=== PATIENT | male | born 1955 | race Caucasian/White ===

== ENCOUNTER → 2020-10-29 08:54 | Outpatient (BNVA) | payer BC, SELFPAY | PROVIDERS: PCP Physician Assistant; Visit Provider Nurse Practitioner Gerontology | DX: E11.42 Type 2 diabetes mellitus with diabetic polyneuropathy (principal); E78.00 Pure hypercholesterolemia, unspecified; I10 Essential (primary) hypertension; R09.89 Other specified symptoms and signs involving the circulatory and respiratory systems; E66.09 Other obesity due to excess calories; Z68.34 Body mass index [BMI] 34.0-34.9, adult; Z79.4 Long term (current) use of insulin | CPT/HCPCS: 82947 ==

== ENCOUNTER → 2020-11-20 14:57 | Outpatient (BNVA) | payer BC, SELFPAY | PROVIDERS: PCP Physician Assistant; Visit Provider Surgery Vascular Surgery ==

== ENCOUNTER → 2020-12-12 07:24 | Outpatient (BNVA) | payer BC, SELFPAY | PROVIDERS: PCP Physician Assistant; Visit Provider Nurse Practitioner Gerontology | DX: E78.00 Pure hypercholesterolemia, unspecified (principal); I10 Essential (primary) hypertension; E66.09 Other obesity due to excess calories; Z68.34 Body mass index [BMI] 34.0-34.9, adult; Z79.4 Long term (current) use of insulin | CPT/HCPCS: 82947 ==

== ENCOUNTER → 2020-12-26 07:30 | Outpatient (BNVA) | payer BC, SELFPAY | PROVIDERS: PCP Physician Assistant; Visit Provider Nurse Practitioner Gerontology | DX: E11.42 Type 2 diabetes mellitus with diabetic polyneuropathy (principal); E78.00 Pure hypercholesterolemia, unspecified; E66.09 Other obesity due to excess calories; I10 Essential (primary) hypertension; Z79.4 Long term (current) use of insulin; Z68.34 Body mass index [BMI] 34.0-34.9, adult | CPT/HCPCS: 82947 ==

== ENCOUNTER 2021-01-02 08:20 | Outpatient (REF) | payer MEDICARE, SELFPAY ==
--- NOTE | ~2021-01-02 | US_ITS ---
EXAMINATION: US NONINVASIVE ASSESSMENT OF THE ARTERIES OF BOTH LOWER EXTREMITIES WITH ANKLE PRESSURE MEASUREMENTS, ANKLE BRACHIAL INDICES, PVR MEASUREMENTS AND BILATERAL LOWER EXTREMITY DUPLEX CLINICAL INFORMATION: Peripheral vascular disease. TECHNIQUE: Ankle pressure measurements, ankle brachial indices and PVR tracings were obtained of the lower extremity arterial system bilaterally. In addition, duplex Doppler techniques with wave form analysis and measurement of velocities in the common femoral, profunda femoral, superficial femoral, popliteal and tibial arteries was performed. The study was performed only at rest. COMPARISON: None FINDINGS: NONINVASIVE ASSESSMENT OF THE ARTERIES OF BOTH LOWER EXTREMITIES WITH ABIs: RIGHT LEG: Right ankle-brachial index: 1.08 PVR (ankle): Normal. LEFT LEG: Ankle-brachial index: 1.15 PVR (ankle): Normal. BILATERAL LOWER EXTREMITY DUPLEX ULTRASOUND: RIGHT LEG: Common femoral artery: 92 cm/s, Diastolic flow reversal: Yes Profunda femoris artery: 54 cm/s, Diastolic flow reversal: Yes Superficial femoral artery (proximal): 86 cm/s, Diastolic flow reversal: Yes Superficial femoral artery (mid): 90 cm/s, Diastolic flow reversal: Yes Superficial femoral artery (distal): 80 cm/s, Diastolic flow reversal: Yes Popliteal artery: 49 cm/s, Diastolic flow reversal: Yes Posterior tibial artery: 58 cm/s, Diastolic flow reversal: Yes LEFT LEG: Common femoral artery: 99 cm/s, Diastolic flow reversal: Yes Profunda femoris artery: 62 cm/s, Diastolic flow reversal: Yes Superficial femoral artery (proximal): 101 cm/s, Diastolic flow reversal: Yes Superficial femoral artery (mid): 94 cm/s, Diastolic flow reversal: Yes Superficial femoral artery (distal): 79 cm/s, Diastolic flow reversal: Yes Popliteal artery: 66 cm/s, Diastolic flow reversal: Yes Posterior tibial artery: 63 cm/s, Diastolic flow reversal: Yes US/US arterial duplex LE BI IMPRESSION: RIGHT LEG: No evidence of arterial insufficiency by ASAD or duplex criteria. LEFT LEG: No evidence of arterial insufficiency by ASAD or duplex criteria. ASAD Reference: - >0.97-1.25 = normal - no significant arterial disease - 0.75-0.96 = mild peripheral arterial disease - 0.5-0.74 = moderate peripheral arterial disease - <0.50 = severe peripheral arterial disease
== END 2021-01-02 08:21 | disposition home or self-care (01) ==
LOC: HO.US 08:20
PROVIDERS: Visit Provider Surgery Vascular Surgery
DX: I70.213 Atherosclerosis of native arteries of extremities with intermittent claudication, bilateral legs (principal)
CPT/HCPCS: 93923; 93925

== ENCOUNTER → 2021-01-10 08:49 | Outpatient (BNVA) | payer MEDICARE, SELFPAY | PROVIDERS: PCP Physician Assistant; Visit Provider Surgery Vascular Surgery | DX: I73.9 Peripheral vascular disease, unspecified (principal) | CPT/HCPCS: 99212 ==

== ENCOUNTER 2021-02-12 08:32 | Outpatient (REF) | payer MEDICARE, SELFPAY ==
[2021-02-12 11:29] LABS: Hematocrit 50.2 % (42-52); Hemoglobin 16.4 g/dl (14.0-18.0); Mean Corpuscular HGB Conc 32.7 g/dl (31.0-36.0); Mean Corpuscular Volume 88.7 fL (80-98); Mean Platelet Volume 11.8 fL (9.4-12.4); Platelet Count 170 X10*3/uL (160-400); Red Blood Count 5.66 X10*6/uL (4.60-5.80); Red Cell Distribution Width 13.8 % (11.0-16.0)
[2021-02-12 11:35] LABS: Estimated Average Glucose 148 mg/dL; Hemoglobin A1c % 6.8 %
[2021-02-12 11:38] LABS: Alanine Aminotransferase 24 U/L (0-40); Albumin Level 4.4 g/dL (3.5-5.0); Alkaline Phosphatase 62 U/L (39-117); Anion Gap 12 (12-20); Aspartate Amino Transferase 28 U/L (5-37); Bilirubin Total 0.5 mg/dL (0.0-1.0); Blood Urea Nitrogen 17 mg/dL (9-16); Calcium 9.3 mg/dL (8.4-10.2); Carbon Dioxide 27 mmol/L (22-29); Chloride 108 mmol/L (96-108); Estimated Glomerular Filt Rate > 60; Glucose Fasting 130 mg/dL (60-99); HDL Cholesterol 33 mg/dL; Potassium 4.3 mmol/L (3.3-5.1); Sodium 143 mmol/L (135-145); Total Protein 7.2 g/dL (6.5-8.0); Triglycerides 137 mg/dL
[2021-02-12 12:00] LABS: Cholesterol 99 mg/dL; LDL Cholesterol Calculated 39 mg/dl
[2021-02-12 12:09] LABS: Creatinine Urine 112.63 mg/dL; Microalbum/Creatinine Ratio Ur 4.4 ug/mg cr
[2021-02-13 20:21] LABS: LDL Cholesterol Direct 41 mg/dL (<100)
== END 2021-02-12 08:33 | disposition home or self-care (01) ==
LOC: HO.HMGCLDS 08:32
PROVIDERS: PCP Physician Assistant; Referring Provider Nurse Practitioner Gerontology; Visit Provider Nurse Practitioner Family
DX: E11.42 Type 2 diabetes mellitus with diabetic polyneuropathy (principal); Z79.4 Long term (current) use of insulin
CPT/HCPCS: 36415; 80053; 80061; 82043; 83036; 83721; 85027

== ENCOUNTER 2021-09-19 08:00 | Outpatient (REF) | payer MEDICARE, SELFPAY ==
[2021-09-19 11:13] LABS: Hematocrit 49.7 % (42.0-52.0); Hemoglobin 16.2 g/dl (14.0-18.0); Mean Corpuscular HGB Conc 32.6 g/dl (31.0-36.0); Mean Corpuscular Hemoglobin 29.3 pg (27.0-33.0); Mean Platelet Volume 11.9 fL (9.4-12.4); Platelet Count 165 X10*3/uL (160-400); Red Blood Count 5.52 X10*6/uL (4.60-5.80); Red Cell Distribution Width 14.6 % (11.0-16.0); White Blood Count 6.3 X10*3/uL (4.8-10.8)
[2021-09-19 11:37] LABS: Alanine Aminotransferase 30 U/L (0-40); Albumin Level 4.2 g/dL (3.5-5.0); Alkaline Phosphatase 68 U/L (39-117); Anion Gap 8 (12-20); Aspartate Amino Transferase 36 U/L (5-37); Bilirubin Total 0.6 mg/dL (0.0-1.0); Blood Urea Nitrogen 12 mg/dL (9-16); Calcium 9.5 mg/dL (8.4-10.2); Carbon Dioxide 31 mmol/L (22-29); Chloride 109 mmol/L (96-108); Cholesterol 95 mg/dL; Estimated Glomerular Filt Rate > 60; Glucose Fasting 92 mg/dL (60-99); HDL Cholesterol 40 mg/dL; LDL Cholesterol Calculated 44 mg/dl; Potassium 4.4 mmol/L (3.3-5.1); Sodium 144 mmol/L (135-145); Triglycerides 59 mg/dL
[2021-09-19 12:00] LABS: Prostate Specific Antigen Scr 0.49 ng/mL (<0.05-4.0)
[2021-09-19 12:37] LABS: Free T4 (Free Thyroxine) 0.65 ng/dL (0.71-1.85)
== END 2021-09-19 08:01 | disposition home or self-care (01) ==
LOC: HO.HMGCLDS 08:00
PROVIDERS: PCP Physician Assistant; Visit Provider Nurse Practitioner Gerontology
DX: I10 Essential (primary) hypertension (principal); E11.42 Type 2 diabetes mellitus with diabetic polyneuropathy; Z79.4 Long term (current) use of insulin; Z12.5 Encounter for screening for malignant neoplasm of prostate
CPT/HCPCS: 36415; 80053; 80061; 84153; 84439; 84443; 85027

== ENCOUNTER 2022-03-12 07:58 | Outpatient (REF) | payer MEDICARE, SELFPAY ==
[2022-03-12 11:28] LABS: Hematocrit 52.9 % (42.0-52.0); Hemoglobin 17.6 g/dl (14.0-18.0); Mean Corpuscular HGB Conc 33.3 g/dl (31.0-36.0); Mean Corpuscular Hemoglobin 29.2 pg (27.0-33.0); Mean Corpuscular Volume 87.7 fL (80.0-98.0); Mean Platelet Volume 11.9 fL (9.4-12.4); Platelet Count 170 X10*3/uL (160-400); Red Blood Count 6.03 X10*6/uL (4.60-5.80); Red Cell Distribution Width 13.7 % (11.0-16.0); White Blood Count 7.7 X10*3/uL (4.8-10.8)
[2022-03-12 12:17] LABS: TSH reflex Free T4 0.37 uIU/mL (0.32-4.0)
[2022-03-12 12:26] LABS: Alanine Aminotransferase 37 U/L (0-40); Albumin Level 4.2 g/dL (3.5-5.0); Alkaline Phosphatase 71 U/L (39-117); Anion Gap 15 (12-20); Aspartate Amino Transferase 37 U/L (5-37); Bilirubin Total 0.7 mg/dL (0.0-1.0); Blood Urea Nitrogen 18 mg/dL (9-16); Calcium 9.2 mg/dL (8.4-10.2); Carbon Dioxide 27 mmol/L (22-29); Chloride 103 mmol/L (96-108); Cholesterol 105 mg/dL; Estimated Glomerular Filt Rate > 60; Glucose Fasting 136 mg/dL (60-99); HDL Cholesterol 40 mg/dL; LDL Cholesterol Calculated 33 mg/dl; Potassium 4.7 mmol/L (3.3-5.1); Sodium 140 mmol/L (135-145); Total Protein 7.3 g/dL (6.5-8.0); Triglycerides 160 mg/dL
== END 2022-03-12 07:59 | disposition home or self-care (01) ==
LOC: HO.HMGCLDS 07:58
PROVIDERS: PCP Physician Assistant; Visit Provider Physician Assistant
DX: E78.00 Pure hypercholesterolemia, unspecified (principal); R79.89 Other specified abnormal findings of blood chemistry; E11.65 Type 2 diabetes mellitus with hyperglycemia; E11.42 Type 2 diabetes mellitus with diabetic polyneuropathy; Z79.4 Long term (current) use of insulin
CPT/HCPCS: 36415; 80048; 80053; 80061; 84443; 85027

== ENCOUNTER 2022-10-21 08:04 | Outpatient (REF) | payer MEDICARE, SELFPAY ==
--- NOTE | ~2022-10-21 | XR_ITS ---
EXAMINATION: XR foot RT min 3V, XR foot LT min 3V CLINICAL INFORMATION: Reason for Exam M79.671 - Pain in right foot COMPARISON: None. TECHNIQUE: AP, lateral, and oblique views of the bilateral feet XR/XR foot RT min 3V FINDINGS/IMPRESSION: * No acute fracture or dislocation. * Calcaneal enthesopathy bilaterally. Degenerative changes of the right greater than left first MTP joint. * No soft tissue abnormality.
--- NOTE | ~2022-10-21 | XR_ITS ---
EXAMINATION: XR foot RT min 3V, XR foot LT min 3V CLINICAL INFORMATION: Reason for Exam M79.671 - Pain in right foot COMPARISON: None. TECHNIQUE: AP, lateral, and oblique views of the bilateral feet XR/XR foot LT min 3V FINDINGS/IMPRESSION: * No acute fracture or dislocation. * Calcaneal enthesopathy bilaterally. Degenerative changes of the right greater than left first MTP joint. * No soft tissue abnormality.
[2022-10-21 12:02] LABS: Hematocrit 52.4 % (42.0-52.0); Hemoglobin 17.1 g/dl (14.0-18.0); Mean Corpuscular HGB Conc 32.6 g/dl (31.0-36.0); Mean Corpuscular Hemoglobin 29.3 pg (27.0-33.0); Mean Corpuscular Volume 89.9 fL (80.0-98.0); Mean Platelet Volume 11.5 fL (9.4-12.4); Platelet Count 175 X10*3/uL (160-400); Red Blood Count 5.83 X10*6/uL (4.60-5.80); Red Cell Distribution Width 14.6 % (11.0-16.0); White Blood Count 9.3 X10*3/uL (4.8-10.8)
[2022-10-21 12:50] LABS: Alanine Aminotransferase 32 U/L (0-40); Alkaline Phosphatase 70 U/L (39-117); Anion Gap 15 (12-20); Aspartate Amino Transferase 26 U/L (5-37); Bilirubin Total 0.8 mg/dL (0.0-1.0); Blood Urea Nitrogen 14 mg/dL (9-16); Carbon Dioxide 29 mmol/L (22-29); Chloride 104 mmol/L (96-108); Cholesterol 111 mg/dL; Estimated Glomerular Filt Rate > 60; Glucose Fasting 79 mg/dL (60-99); HDL Cholesterol 38 mg/dL; LDL Cholesterol Calculated 46 mg/dl; Potassium 4.2 mmol/L (3.3-5.1); Rheumatoid Factor < 13.0 IU/mL (<15.0); Sodium 144 mmol/L (135-145); TSH reflex Free T4 0.38 uIU/mL (0.32-4.0); Total Protein 6.8 g/dL (6.5-8.0); Triglycerides 137 mg/dL
[2022-10-24 15:14] LABS: Anti Nuclear Antibody Screen NEGATIVE (NEGATIVE)
[2022-10-27 16:12] LABS: Testosterone, Total 277 ng/dL (250-1100)
== END 2022-10-21 08:05 | disposition home or self-care (01) ==
LOC: HO.HMGCX 08:04
PROVIDERS: PCP Physician Assistant; Visit Provider Physician Assistant
DX: Z12.5 Encounter for screening for malignant neoplasm of prostate (principal); E11.42 Type 2 diabetes mellitus with diabetic polyneuropathy; M79.671 Pain in right foot; M79.672 Pain in left foot; R53.82 Chronic fatigue, unspecified; Z79.4 Long term (current) use of insulin
CPT/HCPCS: 36415; 73630; 80053; 80061; 84153; 84402; 84403; 84443; 85027; 86038; 86039; 86431

== ENCOUNTER 2023-04-27 08:30 | Outpatient (REF) | payer MEDICARE, SELFPAY ==
[2023-04-27 11:33] LABS: Estimated Average Glucose 128 mg/dL; Hemoglobin A1c % 6.1 % (<6.0)
[2023-04-27 11:51] LABS: Alanine Aminotransferase 26 U/L (0-40); Albumin Level 4.2 g/dL (3.5-5.0); Alkaline Phosphatase 62 U/L (39-117); Anion Gap 16 (12-20); Aspartate Amino Transferase 23 U/L (5-37); Bilirubin Total 0.6 mg/dL (0.0-1.0); Blood Urea Nitrogen 11 mg/dL (9-16); Calcium 9.5 mg/dL (8.4-10.2); Carbon Dioxide 25 mmol/L (22-29); Chloride 106 mmol/L (96-108); Cholesterol 156 mg/dL (<200); Estimated Glomerular Filt Rate > 60; Glucose Fasting 81 mg/dL (60-99); HDL Cholesterol 36 mg/dL (>40); LDL Cholesterol Calculated 91 mg/dL (<100); Potassium 3.2 mmol/L (3.3-5.1); Sodium 144 mmol/L (135-145); TSH reflex Free T4 0.17 uIU/mL (0.32-4.0); Total Protein 7.2 g/dL (6.5-8.0); Triglycerides 148 mg/dL (<150)
[2023-04-27 12:25] LABS: Free T4 (Free Thyroxine) 0.77 ng/dL (0.71-1.85)
== END 2023-04-27 08:31 | disposition home or self-care (01) ==
LOC: HO.HMGCLDS 08:30
PROVIDERS: PCP Physician Assistant; Visit Provider Physician Assistant
DX: Z12.5 Encounter for screening for malignant neoplasm of prostate (principal); R79.89 Other specified abnormal findings of blood chemistry; E78.00 Pure hypercholesterolemia, unspecified; E11.42 Type 2 diabetes mellitus with diabetic polyneuropathy; Z79.4 Long term (current) use of insulin
CPT/HCPCS: 36415; 80053; 80061; 83036; 84153; 84439; 84443

== ENCOUNTER 2023-04-30 09:27 | Outpatient (AMB) | payer MEDICARE, SELFPAY ==
--- NOTE | 2023-04-30 09:29 | A.OFFPC_ITS ---
Vital Signs 04/30/23 09:30 Height 5 ft 11 in Weight 235 lb BMI 32.8 BP 136/80 Blood Pressure Location Lt brachial Position Sitting Respiration 17 Pulse 85 Pulse Source Pulse Oximeter Pulse Oximetry (%) 98 Oxygen Delivery Method Room Air Intake Visit Reasons: 6 month f/u Sand Cutter Required: No Accompanied by: Spouse Allergies Penicillins Allergy (Verified 04/30/23 09:49) hives Medication List - Last Reconciled 04/30/23 by Richie Norton PA-C acetaminophen (Tylenol Extra Strength) 500 mg PO Q6H PRN aripiprazole 2 mg PO DAILY benazepril 20 mg PO DAILY blood pressure test kit-medium As directed blood sugar diagnostic (Inter[employer]uch Verio test strips) To test blood glucose 4 times a day blood-glucose meter (Inter[employer]uch Verio Meter) To test blood glucose 4 times a day blood-glucose meter,continuous ([employer] G6 Purse Seining Hand) As directed blood-glucose sensor (Dexcom G6 Sensor device) As directed blood-glucose transmitter ([employer] G6 Transmitter device) As directed budesonide-formoterol 160-4.5 mcg/actuation 2 puffs PO BID 30 days canagliflozin (Invokana) 300 mg PO DAILY celecoxib (Celebrex) 200 mg PO DAILY 90 days exenatide microspheres ER (Bydureon BCise) 2 mg (0.85 mL) subcut QWEEK 4 weeks ezetimibe 10 mg PO DAILY fluticasone propionate 50 mcg/actuation (Flonase Allergy Relief) 1 spray intranasal Q12H 30 days insulin glargine U-300 conc (Toujeo Max U-300 SoloStar) 74 units (0.2467 mL) subcut BID insulin lispro (Humalog KwikPen (U-100) Insulin) 6 units subcut TID lancets ([employer] Delica Plus Lancet) To test blood glucose 4 times a day nystatin 1 appl topical DAILY 15 days nystatin 1 appl topical DAILY 15 days pantoprazole 40 mg PO DAILY pen needle, diabetic (BD Fela 2nd Gen Pen Needle) 4 times a day pramipexole 0.5 mg PO BEDTIME 90 days prednisone 5 mg PO DAILY 30 days rosuvastatin 5 mg PO DAILY 90 days semaglutide 1 mg (0.75 mL) subcut QWEEK 4 weeks venlafaxine ER 150 mg PO DAILY Tobacco use date assessed: 10/27/22 Fall risk assessment: No Falls in past year Last assessed Fall Risk: 04/30/23 Dental Screening Dental Screen Date: 04/30/23 Did you have a dental visit in the last 12 months?: Yes Did you have a dental problem in the last 6 months where you did not have access to dental care?: No Was dental information given to patient?: No HPI 6 month f/u HPI Details Patient is a 67-year-old male here today for follow-up visit.? He is a? 65-year-old male with a past medical history significant for type 2 diabetes, GERD, anxiety and depression, hyperlipidemia. Concerns--> continues to have left calf cramping worse at night. He is willing to start potassium and magnesium supplementation.. .. DMII: reports Has been taking his blood sugars and report 100s to 130s.? Most recent A1c at 6.1 ?Stopped his follow up with endocrine .? He does report having some lower sugar numbers in the mornings and reduced his Tresiba from 75 to 50 units at night which have normalized sugars. .. Hyperlipidemia:? Continues on statin therapy and total cholesterol and LDL within excellent control. He does report having lower extremity muscle cramps and pain thus will reduce his dose of statin therapy and stop Zetia. Goal LDL will still be below 100 .. Depression:? Has been stable on current doses of mental medications.? Otherwise eyes any SI or HI Labs: Recent noted hypokalemia on labs. Laboratory Tests 10/27/22 04/27/23 04/27/23 09:18 08:40 08:40 Potassium 3.2 L D Creatinine 0.83 Hgb A1c (Clinic) 7.1 H Hemoglobin A1c % 6.1 H Cholesterol 156 LDL Cholesterol, C alc 91 TSH 0.17 L PFSH Medical History (Updated 04/30/23 @ 12:41 by Richie Norton PA-C) Tinea pedis Obesity due to excess calories Poor circulation of extremity Type 2 diabetes mellitus with diabetic polyneuropathy Hypertension High cholesterol Diabetes Surgical History Hx of endoscopy Hx of colonoscopy Hx of hand surgery Hx of vasectomy Family History Mother No problems noted. Father No problems noted. Social History Housing: House Alcohol intake: former Patient Tobacco Use Status: Never used Tobacco e-Cigarette/Vaping Use: Never Used Second Hand Smoke Exposure: No service: No Current occupational status: retired Cognitive needs: No Hearing needs: No Vision needs: Yes Questionnaire Thrive Questionnaire Date Thrive assessed: 10/27/22 DARCY-7 AMB Questionnaire DARCY-7 Date DARCY - 7 assessed: 10/27/22 Source: Developed by Drs. Pedro Akins, Alea Rodriguez, Brett Sanchez and colleagues, with an educational jaelyn from [employer] Physical exam (Primary Care) Vital Signs: Last Vital Signs Pulse 85 04/30/23 09:30 Resp 17 04/30/23 09:30 BP 136/80 04/30/23 09:30 Pulse Ox 98 04/30/23 09:30 Oxygen Delivery Method Room Air 04/30/23 09:30 BMI result Body Mass Index 32.8 Tobacco/Smoking Status: Tobacco use Status Tobacco use date assessed 10/27/22 04/30/23 09:31 Patient Tobacco Use Status Never used Tobacco 04/30/23 09:31 e-Cigarette/Vaping Use Never Used 04/30/23 09:31 Thrive Assessment: Date of Thrive Assessment Date Thrive assessed 10/27/22 04/30/23 09:31 Office Procedures Flu Questionnaire Does the patient have a severe egg allergy?: No Does the patient have severe life threatening allergies?: No Does the patient have a fever or illness today?: No Has the patient ever had Guillain-[place] Syndrome?: No Has the patient ever had any past reaction to a flu shot?: No Immunizations flu vacc [id number] 6mos up(PF) 60 mcg(15 mcgx4)/0.5 mL IM syringe Performing Provider: Richie Norton PA-C [facility] Administered by: KIARA Carmen on 04/30/23 10:01 Dose Route Admin Location Dispensed Lot Number Expiration Date NDC Inorganic Chemical Technician 0.5 mL IM Right Deltoid 0.5 mL [id number] 01/17/24 [id number] [employer] VIS Given Date VIS Provided VIS Publication Date 04/30/23 Single Vaccine 21 Eligibility Eligibility Date Funding Source Not [facility] Eligible 04/30/23 Private Assessment and Plan Assessment & Plan (1) DMII (diabetes mellitus, type 2): Code(s): E11.9 - Type 2 diabetes mellitus without complications Qualifiers: Diabetes mellitus complication status: with hyperglycemia 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 insulin use: with extermination supervisor use Qualified Code(s): E11.65 - Type 2 diabetes mellitus with hyperglycemia; Z79.4 - jail (current) use of insulin Plan: Patient's type 2 diabetes well controlled with A1c is 6.1. Goal A1c to be below 7.0. Will continue his current dose of diabetic medication and will continue working extensively on lifestyle modifications to control his blood sugars. (2) Leg cramps: Code(s): R25.2 - Cramp and spasm Plan: Patient with bilateral lower extremity leg cramps worse at night. Will supply with supplemental magnesium oxide to use hers like cramping. Advised to increase his fluids electrolytes in his diet. Will also reduce the dose of his statin and hold Zetia is there might be side effect of leg cramps with these medications. (3) High cholesterol: Code(s): E78.00 - Pure hypercholesterolemia, unspecified Plan: Patient's lipid panel within excellent control. Will reduce his statin potency as he has been having leg cramps. Goal LDL to be below 100 (4) Osteoarthritis: Code(s): M19.90 - Unspecified osteoarthritis, unspecified site Qualifiers: Laterality: bilateral Osteoarthritis location: knee Osteoarthritis type: primary Qualified Code(s): M17.0 - Bilateral primary osteoarthritis of knee Plan: Patient appears to pretty advanced osteoarthritis. Was on Celebrex in the past though has discontinued this medication. He has started low-dose prednisone and feels that his joint pains are much improved. He is willing to restart nonsteroidal anti-inflammatory for his polyarthritis (5) Hypokalemia: Code(s): E87.6 - Hypokalemia Plan: Noted hypokalemia on most recent labs. Will give potassium supplementation and recheck potassium in 1 week (6) Bipolar disorder: Code(s): F31.9 - Bipolar disorder, unspecified Qualifiers: Active/Remission status: currently active Current bipolar episode type: mixed Current episode severity: mild Qualified Code(s): F31.61 - Bipolar disorder, current episode mixed, mild Plan: Mood has been stable with use of Abilify. Orders: Orders Influenza [id number] Immunization Today Z23 - Encounter for immunization Microalbumin, Random (w Creat) 6 Months E11.42 - Type 2 diabetes mellitus with diabetic polyneuropathy, Z79.4 - jail (current) use of insulin Lipid Panel 6 Months E11.42 - Type 2 diabetes mellitus with diabetic polyneuropathy, Z79.4 - jail (current) use of insulin Complete Blood Count no Diff 6 Months I10 - Essential (primary) hypertension Prostate Specific Antigen Scr 6 Months I10 - Essential (primary) hypertension, Z12.5 - Encounter for screening for malignant neoplasm of prostate TSH reflex Free T4 6 Months R79.89 - Other specified abnormal findings of blood chemistry Comprehensive Stanton. Panel Fast 6 Months E11.42 - Type 2 diabetes mellitus with diabetic polyneuropathy, Z79.4 - jail (current) use of insulin Basic Metabolic Panel Today E87.6 - Hypokalemia Medications: New magnesium oxide 500 mg PO DAILY 90 days 90 caps 1RF R25.2 - Cramp and spasm potassium chloride ER (Klor-Con) 10 mEq PO DAILY 30 days 30 tabs 1RF E87.6 - Hypokalemia Refilled benazepril 20 mg PO DAILY 90 tabs 2RF I10 - Essential (primary) hypertension budesonide-formoterol 160-4.5 mcg/actuation 2 puffs PO BID 30 days 10.2 grams 3RF J45.909 - Unspecified asthma, uncomplicated celecoxib (Celebrex) 200 mg PO DAILY 90 days 90 caps 1RF M17.0 - Bilateral primary osteoarthritis of knee exenatide microspheres ER (Bydureon BCise) 2 mg (0.85 mL) subcut QWEEK 4 weeks 3.4 mL 3RF E11.42 - Type 2 diabetes mellitus with diabetic polyneuropathy, Z79.4 - jail (current) use of insulin pramipexole 0.5 mg PO BEDTIME 90 days 90 tabs 1RF R25.2 - Cramp and spasm semaglutide 1 mg (0.75 mL) subcut QWEEK 4 weeks 3 mL 3RF E11.42 - Type 2 diabetes mellitus with diabetic polyneuropathy, Z79.4 - extermination supervisor (current) use of insulin nystatin 1 appl topical DAILY 15 days 30 grams 3RF B35.3 - Tinea pedis fluticasone propionate 50 mcg/actuation (Flonase Allergy Relief) administer into each nostril 1 spray intranasal Q12H 30 days 16 grams 3RF T78.40XA - Allergy, unspecified, initial encounter Coding Level of Care Code Est Pt Level 4 (76346) Diagnoses Type 2 diabetes mellitus with hyperglycemia, with long-term current use of insulin E11.65; Z79.4 Diabetes mellitus complication status: with hyperglycemia Diabetes mellitus mcfp insulin use: with extermination supervisor use Leg cramps R25.2 High cholesterol E78.00 Primary osteoarthritis of both knees M17.0 Laterality: bilateral Osteoarthritis location: knee Osteoarthritis type: primary Hypokalemia E87.6 Bipolar disorder, current episode mixed, mild F31.61 Active/Remission status: currently active Current bipolar episode type: mixed Current episode severity: mild
[2023-04-30 09:30] VITALS: BP 136/80; PULSE 85; RESP 17; O2SAT 98; BMI 32.8
== END 2023-04-30 10:43 | disposition home or self-care (01) ==
PROVIDERS: Visit Provider Physician Assistant
DX: E11.65 Type 2 diabetes mellitus with hyperglycemia (principal); Z79.4 Long term (current) use of insulin; F31.61 Bipolar disorder, current episode mixed, mild; R25.2 Cramp and spasm; Z23 Encounter for immunization; E78.00 Pure hypercholesterolemia, unspecified; M17.0 Bilateral primary osteoarthritis of knee; E87.6 Hypokalemia
CPT/HCPCS: 90471; 90686; 99214

== ENCOUNTER 2023-08-05 08:48 | Outpatient (AMB) | payer MEDICARE, SELFPAY ==
[2023-08-05 08:55] VITALS: BP 136/84; PULSE 87; O2SAT 98; BMI 33.4
--- NOTE | 2023-08-05 08:55 | A.OFFVIS_ITS ---
Intake Vital Signs 08/05/23 08:55 Height 5 ft 11 in Weight 239 lb 6.752 oz BMI 33.4 BP 136/84 Blood Pressure Location Rt brachial Position Sitting Pulse 87 Pulse Source Pulse Oximeter Pulse Oximetry (%) 98 Oxygen Delivery Method Room Air Intake Visit Reasons: Joint pain Intake Note: New pt presents today for consult. Reports family history of MS in mother, who is . C/o multiple joint pains, especially in knees; concerns with skin. Pain started approx 6 months ago. Has tried otc meds but nothing helps. Interested in starting Cosentyx if appropriate. Medical Pathology Teacher Required: No Accompanied by: Self / Same As Patient Allergies Penicillins Allergy (Verified 08/05/23 08:57) hives Medication List - Last Reconciled 08/05/23 by Collette Gu MD acetaminophen (Tylenol Extra Strength) 500 mg PO Q6H PRN aripiprazole 2 mg PO DAILY benazepril 20 mg PO DAILY blood pressure test kit-medium As directed blood sugar diagnostic (Fish[employer]l Verio test strips) To test blood glucose 4 times a day blood-glucose meter (Fishbowl Verio Meter) To test blood glucose 4 times a day blood-glucose meter,continuous ([employer] G6 All Round Logger) As directed blood-glucose sensor ([employer] G6 Sensor device) As directed blood-glucose transmitter ([employer] G6 Transmitter device) As directed budesonide-formoterol 160-4.5 mcg/actuation 2 puffs PO BID 30 days canagliflozin (Invokana) 300 mg PO DAILY celecoxib (Celebrex) 200 mg PO BID 90 days exenatide microspheres ER (Bydureon BCise) 2 mg (0.85 mL) subcut QWEEK 4 weeks ezetimibe 10 mg PO DAILY fluticasone propionate 50 mcg/actuation (Flonase Allergy Relief) 1 spray intranasal Q12H 30 days insulin glargine U-300 conc (Toujeo Max U-300 SoloStar) 74 units (0.2467 mL) subcut BID insulin lispro (Humalog KwikPen (U-100) Insulin) 6 units subcut TID lancets ([employer] Delica Plus Lancet) To test blood glucose 4 times a day magnesium oxide 500 mg PO DAILY 90 days nystatin 1 appl topical DAILY 15 days nystatin 1 appl topical DAILY 15 days pantoprazole 40 mg PO DAILY pen needle, diabetic (BD Fela 2nd Gen Pen Needle) 4 times a day potassium chloride ER (Klor-Con) 10 mEq PO DAILY 30 days pramipexole 0.5 mg PO BEDTIME 90 days prednisone 5 mg PO DAILY 30 days rosuvastatin 5 mg PO DAILY 90 days semaglutide (Ozempic) mg subcut venlafaxine ER 150 mg PO DAILY HPI HPI Comments History of Present Illness Details This is a 68-year-old male who presents for evaluation of multiple joint pain. States that he has been having joint pain for years. Pain is mostly located in his knees. He used to receive steroid injection in both knees every few months for a few years. He states that the injections became less effective over time and gel injections were considered but his orthopedist left practice. 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 He tried different medications for his arthritis, most recently he has been taking prednisone and it seems to be helpful. He is also having erythematous rash in both ankles and feet as well as hyperpigmentation on both shins. He wonders whether he has psoriatic arthritis and whether Cosentyx would be a good treatment option for him. He is unaware of personal or family history of psoriasis. The only known family history of autoimmune disease is MS in his mother who passed. [facility] Medical History Tinea pedis Obesity due to excess calories Poor circulation of extremity Type 2 diabetes mellitus with diabetic polyneuropathy Hypertension High cholesterol Diabetes Surgical History Hx of endoscopy Hx of colonoscopy Hx of hand surgery Hx of vasectomy Family History Mother Multiple sclerosis Father No problems noted. Social History Housing: House Alcohol intake: former Patient Tobacco Use Status: Never used Tobacco e-Cigarette/Vaping Use: Never Used Second Hand Smoke Exposure: No service: No Current occupational status: retired Cognitive needs: No Hearing needs: No Vision needs: Yes Review of Systems Musc Reports arthralgias, Reports joint swelling and Reports stiffness Skin/Breast Reports rash Physical Exam Vital Signs: Last Vital Signs Pulse 87 08/05/23 08:55 BP 136/84 08/05/23 08:55 Pulse Ox 98 08/05/23 08:55 Oxygen Delivery Method Room Air 08/05/23 08:55 BMI result Body Mass Index 33.4 Const General: cooperative, healthy appearing and comfortable Nutritional Appearance: obese Orientation/consciousness: patient oriented x3 Limitations: no limitations HEENT Head: Yes normocephalic and Yes atraumatic Mouth: moist mucous membranes Resp Effort & Inspection: normal respiratory effort and able to speak in complete sentences Cardio Rate: regular rate Rhythm: regular rhythm Skin Other: Hyperpigmentation and signs of venous stasis both shins Erythema erythema of both feet without warmth Varicose veins Neuro General: patient oriented x3 Extrem Other: Significant osteoarthritic changes of both hands with no active synovitis 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 DIP and deformity of right 4th finger (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) Deformity of left elbow ( injury) Normal range of motion of both shoulders Deformity with a medial bone bulge of left knee Significant osteoarthritic changes of both knees with crepitus Bilateral knee pain with full flexion and extension No ankle swelling or tenderness No dactylitis of toes Negative MTP squeeze test Bilateral cool toes Assessment & Plan Assessment & Plan (1) Osteoarthritis: Code(s): M19.90 - Unspecified osteoarthritis, unspecified site Qualifiers: Osteoarthritis location: knee Osteoarthritis type: primary Laterality: bilateral Qualified Code(s): M17.0 - Bilateral primary osteoarthritis of knee Plan: This is a 68-year-old male who presents for evaluation of polyarthralgia. On exam I do not see any signs of an autoimmune rheumatic disease. Clinical picture rather consistent with generalized osteoarthritis. What seems to be most symptomatic is his bilateral knee osteoarthritis. I suggested Orthopedics evaluation. Follow-up as needed Plan I spent 30 minutes reviewing patient's chart, evaluating patient, counseling patient and documenting in the chart Coding Level of Care Code New Pt Level 3 (43263) Diagnoses Primary osteoarthritis of both knees M17.0 Osteoarthritis location: knee Osteoarthritis type: primary Laterality: bilateral
== END 2023-08-05 09:39 | disposition home or self-care (01) ==
LOC: HO.RHE 08:48
PROVIDERS: PCP Physician Assistant; Visit Provider Student in an Organized Health Care Education/Training Program
DX: M17.0 Bilateral primary osteoarthritis of knee (principal)
CPT/HCPCS: 99203

== ENCOUNTER → 2023-08-05 08:48 | Outpatient (BNVA) | payer MEDICARE, SELFPAY | PROVIDERS: PCP Physician Assistant; Visit Provider Student in an Organized Health Care Education/Training Program | DX: M17.0 Bilateral primary osteoarthritis of knee (principal) | CPT/HCPCS: 99202 ==

== ENCOUNTER 2023-08-17 08:42 | Outpatient (AMB) | payer MEDICARE, SELFPAY ==
--- NOTE | 2023-08-17 08:52 | MHC.OFFVIS ---
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 Patient reports that he has had ongoing knee pain for many years, he has had previous treatment for the knees such as cortisone. The cortisone had become ineffective and he was going to discuss gel with ortho provider, but the provider had retired. He reports that his pain is felt all the time worsened with increased acivities. 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 He complains of pain, which he says is constant , but worse with daily activity and ADLs. He has been seen at an outside clinic and received steroid injections, which he says used to be helpful but the results have diminished. He was discussing gel ijections when his previous provider retired. He would like to discuss treatment options. [facility] Medical History Tinea pedis Obesity due to excess calories Poor circulation of extremity Type 2 diabetes mellitus with diabetic polyneuropathy Hypertension High cholesterol Diabetes Surgical History Hx of endoscopy Hx of colonoscopy Hx of hand surgery Hx of vasectomy Family History Mother Multiple sclerosis Father No problems noted. Social History Housing: House Alcohol intake: former Patient Tobacco Use Status: Never used Tobacco e-Cigarette/Vaping Use: Never Used Second Hand Smoke Exposure: No service: No Current occupational status: retired Cognitive needs: No Hearing needs: No Vision needs: Yes Review of Systems Const All systems reviewed & are unremarkable except as noted in HPI and below Physical Exam Const General: no acute distress, alert and awake Orientation/consciousness: patient oriented x3 HEENT Head: Yes normocephalic and Yes atraumatic Eyes EOM: EOMs intact bilaterally Resp Effort & Inspection: normal respiratory effort and able to speak in complete sentences Cardio Jugular venous distension: no JVD Skin General skin exam: turgor normal Rashes: no rashes Neuro General: patient oriented x3 Extrem Other: varus bilateral knees with varus thrust bilaterally mild ttp medial joint line bilaterally Psych Appearance: grossly normal Affect: normal affect Attitude: cooperative Office Procedures Joint Injection/Drain Joint Injection/Drain Details: Injected 1 mL of Decadron and 3 mL 1% lidocaine and 3 mL of 0.25% Marcaine. Site was prepped using aseptic technique. Patient tolerated the procedure well. Primary Site: right knee Secondary Site: left knee Approach Used: anterolateral Coding - Large joint 30161 - Glenohumeral/Tronchanteric Bursa/Intraarticular Procedure code (CPT) selection complete Results Reviewed Results Reviewed: I personally reviewed relevant radiographs. Bialteral varus OA, severe Assessment & Plan Assessment & Plan (1) Knee osteoarthritis: Code(s): M17.9 - Osteoarthritis of knee, unspecified Plan: Bilateral knee OA Activity is limited but he is unsure of what type of treatment he wants. We elected to inject and I will see him back in 3 months. (2) DMII (diabetes mellitus, type 2): Code(s): E11.9 - Type 2 diabetes mellitus without complications Qualifiers: Diabetes mellitus buttermaker continuous churn insulin use: with buttermaker continuous churn use Diabetes mellitus complication status: with hyperglycemia Qualified Code(s): E11.65 - Type 2 diabetes mellitus with hyperglycemia; Z79.4 - intermediate designer (current) use of insulin Plan: Informed patient of hyperglycemic effects of steroids Plan Prepared for Chacorta Coelho MD by Zafar Coyne, medical front desk specialist, on 08/17/23 at 8:55 AM, EST. Orders: Orders XR knee standing BI Today M25.569 - Pain in unspecified knee XR knee RT 2V Today M25.569 - Pain in unspecified knee XR knee LT 2V Today M25.569 - Pain in unspecified knee Coding Level of Care Code New Pt Level 4 (99829) Diagnoses Knee osteoarthritis M17.9 Type 2 diabetes mellitus with hyperglycemia, with long-term current use of insulin E11.65; Z79.4 Diabetes mellitus group home insulin use: with group home use Diabetes mellitus complication status: with hyperglycemia CPT Codes Coding - Large joint: 12835 - Large joint ([id number]) Coding - Joint 7: - Glenohumeral/Tronchanteric Bursa/Intraarticular ([id number])
== END 2023-08-17 09:47 | disposition home or self-care (01) ==
PROVIDERS: PCP Physician Assistant; Visit Provider Orthopaedic Surgery
DX: M17.0 Bilateral primary osteoarthritis of knee (principal); E11.65 Type 2 diabetes mellitus with hyperglycemia; Z79.4 Long term (current) use of insulin
CPT/HCPCS: 20610; 99204

== ENCOUNTER 2023-08-17 09:11 | Outpatient (REF) | payer MEDICARE, SELFPAY ==
--- NOTE | ~2023-08-17 | XR_ITS ---
EXAMINATION: XR KNEE STANDING BI, XR KNEE RT 2V, XR KNEE LT 2V CLINICAL INFORMATION: M25.569 - Pain in unspecified knee. COMPARISON: None available. TECHNIQUE: AP standing view of the bilateral knees. Lateral and sunrise views of each knee. FINDINGS: Right Knee: Moderate joint effusion. The bones are diffusely demineralized. Moderate medial and lateral marginal osteophytes. Marked medial joint space narrowing with varus deformity. Prominent osteophytes and advanced degenerative change in the patellofemoral joint. Left Knee: Moderate joint effusion. The bones are diffusely demineralized. Moderate medial and lateral marginal osteophytes. Marked medial joint space narrowing with varus deformity. Prominent osteophytes and advanced degenerative change in the patellofemoral joint. XR/XR knee standing BI IMPRESSION: Advanced degenerative changes in the bilateral knees. Moderate bilateral joint effusions.
--- NOTE | ~2023-08-17 | XR_ITS ---
EXAMINATION: XR KNEE STANDING BI, XR KNEE RT 2V, XR KNEE LT 2V CLINICAL INFORMATION: M25.569 - Pain in unspecified knee. COMPARISON: None available. TECHNIQUE: AP standing view of the bilateral knees. Lateral and sunrise views of each knee. FINDINGS: Right Knee: Moderate joint effusion. The bones are diffusely demineralized. Moderate medial and lateral marginal osteophytes. Marked medial joint space narrowing with varus deformity. Prominent osteophytes and advanced degenerative change in the patellofemoral joint. Left Knee: Moderate joint effusion. The bones are diffusely demineralized. Moderate medial and lateral marginal osteophytes. Marked medial joint space narrowing with varus deformity. Prominent osteophytes and advanced degenerative change in the patellofemoral joint. XR/XR knee RT 2V IMPRESSION: Advanced degenerative changes in the bilateral knees. Moderate bilateral joint effusions.
--- NOTE | ~2023-08-17 | XR_ITS ---
EXAMINATION: XR KNEE STANDING BI, XR KNEE RT 2V, XR KNEE LT 2V CLINICAL INFORMATION: M25.569 - Pain in unspecified knee. COMPARISON: None available. TECHNIQUE: AP standing view of the bilateral knees. Lateral and sunrise views of each knee. FINDINGS: Right Knee: Moderate joint effusion. The bones are diffusely demineralized. Moderate medial and lateral marginal osteophytes. Marked medial joint space narrowing with varus deformity. Prominent osteophytes and advanced degenerative change in the patellofemoral joint. Left Knee: Moderate joint effusion. The bones are diffusely demineralized. Moderate medial and lateral marginal osteophytes. Marked medial joint space narrowing with varus deformity. Prominent osteophytes and advanced degenerative change in the patellofemoral joint. XR/XR knee LT 2V IMPRESSION: Advanced degenerative changes in the bilateral knees. Moderate bilateral joint effusions.
== END 2023-08-17 09:12 | disposition home or self-care (01) ==
LOC: HO.HOSX 09:11
PROVIDERS: Visit Provider Orthopaedic Surgery
DX: M17.0 Bilateral primary osteoarthritis of knee (principal); E11.65 Type 2 diabetes mellitus with hyperglycemia; Z79.4 Long term (current) use of insulin
CPT/HCPCS: 20610; 73560; 73565; 99202; J0665; J1100

== ENCOUNTER 2023-09-29 08:17 | Outpatient (AMB) | payer MEDICARE, SELFPAY ==
[2023-09-29 08:33] VITALS: BP 132/68; PULSE 57; O2SAT 100; BMI 31.9
--- NOTE | 2023-09-29 08:33 | MHC.PC.OV ---
Vital Signs 09/29/23 08:33 Height 5 ft 11 in Weight 229 lb BMI 31.9 BP 132/68 Blood Pressure Location Lt brachial Position Sitting Pulse 57 Pulse Source Pulse Oximeter Pulse Oximetry (%) 100 Oxygen Delivery Method Room Air Intake Visit Reasons: lab follow up Allergies Penicillins Allergy (Verified 09/29/23 08:56) hives magnesium Adverse Reaction (Intermediate, Verified 09/29/23 09:06) hyperglycemia Medication List - Last Reconciled 09/29/23 by Richie Norton PA-C acetaminophen (Tylenol Extra Strength) 500 mg PO Q6H PRN aripiprazole 2 mg PO DAILY benazepril 20 mg PO DAILY blood pressure test kit-medium As directed blood sugar diagnostic ([employer] Verio test strips) To test blood glucose 4 times a day blood-glucose meter ([employer] Verio Meter) To test blood glucose 4 times a day blood-glucose meter,continuous ([employer] G6 Dynamometer Repairer) As directed blood-glucose sensor ([employer] G6 Sensor device) As directed blood-glucose transmitter ([employer] G6 Transmitter device) As directed budesonide-formoterol 160-4.5 mcg/actuation 2 puffs PO BID 30 days canagliflozin (Invokana) 300 mg PO DAILY celecoxib (Celebrex) 200 mg PO BID 90 days exenatide microspheres ER (Bydureon BCise) 2 mg (0.85 mL) subcut QWEEK 4 weeks ezetimibe 10 mg PO DAILY fluticasone propionate 50 mcg/actuation (Flonase Allergy Relief) 1 spray intranasal Q12H 30 days insulin aspart U-100 (Novolog FlexPen U-100 Insulin aspart) 6 units (0.06 mL) subcut TID 30 days insulin glargine U-300 conc (Toujeo Max U-300 SoloStar) 74 units (0.2467 mL) subcut BID lancets ([employer] Delica Plus Lancet) To test blood glucose 4 times a day magnesium oxide 500 mg PO DAILY 90 days nystatin 1 appl topical DAILY 15 days nystatin 1 appl topical DAILY 15 days pantoprazole 40 mg PO DAILY pen needle, diabetic (BD Fela 2nd Gen Pen Needle) 4 times a day potassium chloride ER (Klor-Con) 10 mEq PO DAILY 30 days pramipexole 0.5 mg PO BEDTIME 90 days prednisone 5 mg PO DAILY 30 days rosuvastatin 5 mg PO DAILY 90 days semaglutide (Ozempic) mg subcut venlafaxine ER 150 mg PO DAILY Tobacco use date assessed: 09/29/23 Fall risk assessment: No Falls in past year Last assessed Fall Risk: 09/29/23 Dental Screening Dental Screen Date: 09/29/23 Did you have a dental visit in the last 12 months?: Yes Did you have a dental problem in the last 6 months where you did not have access to dental care?: No Was dental information given to patient?: Patient has dentist HPI lab follow up HPI Details Patient is a 68-year-old male here today for follow-up visit.? He is a? 65-year-old male with a past medical history significant for type 2 diabetes, GERD, anxiety and depression, polyarthritis, hyperlipidemia. Concerns--> reports having some worsening GERD symptoms. Continues on pantoprazole 40 mg daily. He reports audible gastric noises. Otherwise denies any vomiting, nausea or diarrhea. .. DMII: reports Has been taking his blood sugars and report 100s to 130s.? Most recent A1c at 6.3 ?Stopped his follow up with endocrine .? He does report having some lower sugar numbers in the mornings and reduced his Tresiba to 50 units b.i.d. at night which have normalized sugars. .. Hyperlipidemia:? Continues on statin therapy and total cholesterol and LDL within excellent control. He does report having lower extremity muscle cramps and pain thus will reduce his dose of statin therapy and stop Zetia. Goal LDL will still be below 100 .. Depression:? Has been stable on current doses of mental medications.? Otherwise eyes any SI or HI [facility] Medical History Tinea pedis Obesity due to excess calories Poor circulation of extremity Type 2 diabetes mellitus with diabetic polyneuropathy Hypertension High cholesterol Diabetes Surgical History Hx of endoscopy Hx of colonoscopy Hx of hand surgery Hx of vasectomy Family History Mother Multiple sclerosis Father No problems noted. Social History Housing: House Alcohol intake: former Patient Tobacco Use Status: Never used Tobacco e-Cigarette/Vaping Use: Never Used Second Hand Smoke Exposure: No service: No Current occupational status: retired Cognitive needs: No Hearing needs: No Vision needs: Yes Questionnaire PHQ-9 Over the last 2 weeks, how often have you been bothered by any of the following problems? 1. Little interest or pleasure in doing things: not at all 2. Feeling down, depressed, or hopeless: not at all 3. Trouble falling or staying asleep, or sleeping too much: not at all 4. Feeling tired or having little energy: not at all 5. Poor appetite or overeating: not at all 6. Feeling bad about yourself - or that you are a failure or have let yourself or your family down: not at all 7. Trouble concentrating on things, such as reading the newspaper or watching television: not at all 8. Moving or speaking so slowly that other people could have noticed. Or the opposite - being so fidgety or restless that you have been moving around a lot more than usual: not at all 9. Thoughts that you would be better off or of hurting yourself in some way: not at all Total score: 0 Depression Screening Interpretation: Negative Depression Screening Done: Yes 08019 - PHQ-9 Billing: Yes Source: Developed by Drs. Pedro Akins, Alea Rodriguez, Brett Sanchez and colleagues, with an educational jaelyn from [employer]. Thrive Questionnaire Date Thrive assessed: 09/29/23 I am a: Patient What is your living situation today?: I have a steady place to live Within the past 12 months, did the food you bought not last and you didn't have the money to get more?: Never true Within the past 12 months, did you worry whether your food would run out before you got money to buy more?: Never true Do you have trouble paying for medicines?: No Do you have trouble getting transportation to medical appointments?: No Do you have trouble paying your heating and electricity bill?: No Do you have trouble taking care of your child, family member or friend?: No Do you have trouble with day-to-day activities such as bathing, preparing meals, shopping, managing finances, etc.?: No Are you currently unemployed and looking for a job?: No Are you interested in more education?: No Currently or been in a relationship where the following occur: no concerns reported THRIVE Score: 0 AUDIT C Alcohol Use Questionnaire (AUDIT-C) 1. How often do you have a drink containing alcohol?: Never 3. How often do you have six or more drinks on one occasion?: Never Total Score: 0 DARCY-7 AMB Questionnaire DARCY-7 Date DARCY - 7 assessed: 09/29/23 Feeling nervous, anxious, or on edge: 0 = Not at all Not being able to stop or control worryin = Not at all Worrying too much about different things: 0 = Not at all Trouble relaxin = Not at all Being so restless that it is hard to sit still: 0 = Not at all Becoming easily annoyed or irritable: 0 = Not at all Feeling afraid as if something awful might happen: 0 = Not at all Total DARCY-7 score (0-4 normal; 5-9 mild; 10-14 moderate; 15-21 severe): 0 Source: Developed by Drs. Pedro Akins, Alea Rodriguez, Brett Sanchez and colleagues, with an educational jaelyn from [employer]. DARCY-7 Assessment Billing DARCY-7 Assessment Tool: DARCY-7 Assessment 27721 Review of Systems Const Denies headache(s) Eyes Denies loss of vision ENT Denies vertigo, Denies dizziness, Denies headache(s) and Denies sore throat Card Denies chest pain, Denies leg edema and Denies lightheadedness Resp Denies cough, Denies hemoptysis and Denies wheezing GI Denies abdominal pain, Denies melena, Denies constipation, Denies diarrhea and Denies vomiting Denies dysuria, Denies urinary frequency and Denies urinary urgency Musc Denies arthralgias, Denies joint swelling, Denies numbness and Denies tingling Neuro Denies Abnormal speech present, Denies behavioral changes, Denies vertigo, Denies dizziness, Denies headache(s), Denies loss of vision, Denies memory loss, Denies numbness and Denies tingling Psych Denies anxiety, Denies behavioral changes, Denies depression, Denies memory loss and Denies panic attacks Hilario/Lymph Denies easy bleeding and Denies easy bruising Aller/Immun Denies wheezing Physical exam (Primary Care) Vital Signs: Last Vital Signs Pulse 57 09/29/23 08:33 BP 132/68 09/29/23 08:33 Pulse Ox 100 09/29/23 08:33 Oxygen Delivery Method Room Air 09/29/23 08:33 BMI result Body Mass Index 31.9 Tobacco/Smoking Status: Tobacco use Status Tobacco use date assessed 09/29/23 09/29/23 08:41 Patient Tobacco Use Status Never used Tobacco 09/29/23 08:35 e-Cigarette/Vaping Use Never Used 09/29/23 08:35 PHQ-9: PHQ-9 Score PHQ-9: Total score 0 09/29/23 08:42 Depression Screening Interpretation: Negative Thrive Assessment: Date of Thrive Assessment Date Thrive assessed 09/29/23 09/29/23 08:41 Currently or been in a relationship where the following occur: no concerns reported Const General: healthy appearing, no acute distress, alert and awake Nutritional Appearance: well nourished Orientation/consciousness: oriented to person, oriented to place and oriented to time HENMT Ears: TM's normal bilaterally General nose exam: Normal nasal mucous membranes and turbinates present Eyes Conjunctivae: conjunctivae normal Sclerae: sclerae normal Pupils: Equal, round and reactive pupils present Neck Neck: Yes no lymphadenopathy and Yes no JVD Thyroid: Thyroid normal Carotids: no bruits Resp Effort & Inspection: normal respiratory effort and not tachypneic Auscultation: no crackles, no rales, no rhonchi and no wheezes Cardio Rate: regular rate Rhythm: regular rhythm Heart sounds: no murmurs and normal S1 and S2 GI Palpation (GI): Soft to palpation, nontender, no hepatomegaly and no splenomegaly Auscultation: normal bowel sounds Skin General skin exam: no rashes or lesions noted and dry skin Neuro General: oriented to person, oriented to place and oriented to time Cranial nerves: Yes Equal, round and reactive pupils present Speech: No Abnormal speech present Gait exam (Neuro): Normal gait present Motor exam (neuro): no tremor noted Extrem Right upper extremity: full ROM Left upper extremity: full ROM Right lower extremity: full ROM; no edema Left lower extremity: full ROM; no edema Psych Mental Status: mental status grossly normal Speech and movement: Normal speech and movement present Affect: normal affect Attitude: cooperative Thought process: Normal thought process present Results AMB Hemoglobin A1c AMB Hemoglobin A1c 6.3 % Last Edit by Hilda Zamora CMA on 09/29/23 08:43 Results Reviewed Results Reviewed: Laboratory Last Values Hgb A1c (Clinic) 6.3 % (4.0-6.0) H 09/29/23 08:42 Assessment and Plan Assessment & Plan (1) DMII (diabetes mellitus, type 2): Code(s): E11.9 - Type 2 diabetes mellitus without complications Qualifiers: Diabetes mellitus longterm insulin use: with longterm use Diabetes mellitus complication status: with hyperglycemia Qualified Code(s): E11.65 - Type 2 diabetes mellitus with hyperglycemia; Z79.4 - residential (current) use of insulin Plan: Patient's type 2 diabetes well controlled with A1c is 6.3. Goal A1c to be below 7.0. Will continue his current dose of diabetic medication and will continue working extensively on lifestyle modifications to control his blood sugars. (2) High cholesterol: Code(s): E78.00 - Pure hypercholesterolemia, unspecified Plan: Patient's lipid panel within excellent control. Will reduce his statin potency as he has been having leg cramps. Goal LDL to be below 100 (3) Osteoarthritis: Code(s): M19.90 - Unspecified osteoarthritis, unspecified site Qualifiers: Osteoarthritis location: knee Osteoarthritis type: primary Laterality: bilateral Qualified Code(s): M17.0 - Bilateral primary osteoarthritis of knee Plan: Patient appears to pretty advanced osteoarthritis. Continues on Celebrex and prednisone and reports improved polyarthralgia relief. He has also follow-up with orthopedic surgeon has gotten injection in bilateral knees. (4) Bipolar disorder: Code(s): F31.9 - Bipolar disorder, unspecified Qualifiers: Active/Remission status: currently active Current bipolar episode type: mixed Current episode severity: mild Qualified Code(s): F31.61 - Bipolar disorder, current episode mixed, mild Plan: Mood has been stable with use of Abilify and venlafaxine. (5) Type 2 diabetes mellitus with diabetic polyneuropathy: Code(s): E11.42 - Type 2 diabetes mellitus with diabetic polyneuropathy Qualifiers: Diabetes mellitus computer terminal operator insulin use: with longterm use Qualified Code(s): E11.42 - Type 2 diabetes mellitus with diabetic polyneuropathy; Z79.4 - residential (current) use of insulin (6) GERD (gastroesophageal reflux disease): Code(s): K21.9 - Gastro-esophageal reflux disease without esophagitis Qualifiers: Esophagitis presence: without esophagitis Qualified Code(s): K21.9 - Gastro-esophageal reflux disease without esophagitis Plan: Continues on PPI therapy. He reports over the last several weeks having gas buildup in his epigastrium any has audible gastric sounds. Will supply patient with simethicone. (7) PAD (peripheral artery disease): Code(s): I73.9 - Peripheral vascular disease, unspecified Plan: Has been stable Orders: Orders AMB Hemoglobin A1c Today Z13.9 - Encounter for screening, unspecified TSH reflex Free T4 Today R79.89 - Other specified abnormal findings of blood chemistry Lipid Panel Today E78.00 - Pure hypercholesterolemia, unspecified Comprehensive [place]. Panel Fast Today E11.42 - Type 2 diabetes mellitus with diabetic polyneuropathy, Z79.4 - residential (current) use of insulin Complete Blood Count no Diff Today E11.42 - Type 2 diabetes mellitus with diabetic polyneuropathy, Z79.4 - residential (current) use of insulin Microalbumin, Random (w Creat) Today I10 - Essential (primary) hypertension Prostate Specific Antigen Scr Today I10 - Essential (primary) hypertension, Z12.5 - Encounter for screening for malignant neoplasm of prostate TSH reflex Free T4 6 Months R79.89 - Other specified abnormal findings of blood chemistry Comprehensive [place]. Panel Fast 6 Months E11.42 - Type 2 diabetes mellitus with diabetic polyneuropathy, Z79.4 - intermediate designer (current) use of insulin Complete Blood Count no Diff 6 Months I10 - Essential (primary) hypertension Lipid Panel 6 Months E78.00 - Pure hypercholesterolemia, unspecified Medications: New simethicone (Gas Relief (simethicone)) 80 mg PO BID-QID PRN 120 tabs 3RF abdominal distention 30 days K21.9 - Gastro-esophageal reflux disease without esophagitis Changed From insulin glargine U-300 conc (Toujeo Max U-300 SoloStar) 74 units (0.2467 mL) subcut BID 54 mL 3RF E11.42 - Type 2 diabetes mellitus with diabetic polyneuropathy, Z79.4 - intermediate designer (current) use of insulin To insulin glargine U-300 conc (Toujeo Max U-300 SoloStar) 50 units (0.1667 mL) subcut BID 54 mL 3RF E11.42 - Type 2 diabetes mellitus with diabetic polyneuropathy, Z79.4 - residential (current) use of insulin From semaglutide (Ozempic) subcut E11.42 - Type 2 diabetes mellitus with diabetic polyneuropathy To semaglutide (Ozempic) 1 mg (0.75 mL) subcut QWEEK 4 weeks 3 mL 6RF E11.42 - Type 2 diabetes mellitus with diabetic polyneuropathy Refilled acetaminophen (Tylenol Extra Strength) 500 mg PO Q6H PRN 120 tabs 2RF fever or pain M19.90 - Unspecified osteoarthritis, unspecified site aripiprazole 2 mg PO DAILY 90 tabs 2RF F32.9 - Major depressive disorder, single episode, unspecified benazepril 20 mg PO DAILY 90 tabs 2RF I10 - Essential (primary) hypertension celecoxib (Celebrex) 200 mg PO BID 90 days 180 caps 2RF M17.0 - Bilateral primary osteoarthritis of knee pramipexole 0.5 mg PO BEDTIME 90 days 90 tabs 2RF R25.2 - Cramp and spasm budesonide-formoterol 160-4.5 mcg/actuation 2 puffs PO BID 30 days 10.2 grams 3RF J45.909 - Unspecified asthma, uncomplicated canagliflozin (Invokana) 300 mg PO DAILY 90 tabs 2RF E11.42 - Type 2 diabetes mellitus with diabetic polyneuropathy, Z79.4 - intermediate designer (current) use of insulin insulin aspart U-100 (Novolog FlexPen U-100 Insulin aspart) 6 units (0.06 mL) subcut TID 30 days 15 mL 1RF E11.65 - Type 2 diabetes mellitus with hyperglycemia, Z79.4 - residential (current) use of insulin fluticasone propionate 50 mcg/actuation (Flonase Allergy Relief) administer into each nostril 1 spray intranasal Q12H 30 days 16 grams 3RF T78.40XA - Allergy, unspecified, initial encounter nystatin 1 appl topical DAILY 15 days 30 grams 3RF B35.3 - Tinea pedis pantoprazole 40 mg PO DAILY 90 tabs 2RF potassium chloride ER (Klor-Con) 10 mEq PO DAILY 30 days 30 tabs 2RF E87.6 - Hypokalemia prednisone 5 mg PO DAILY 30 days 30 tabs 3RF M19.90 - Unspecified osteoarthritis, unspecified site rosuvastatin 5 mg PO DAILY 90 days 90 tabs 2RF E78.00 - Pure hypercholesterolemia, unspecified venlafaxine ER 150 mg PO DAILY 90 caps 2RF Discontinued exenatide microspheres ER (Byfredrick Pritchett) Discontinued Reason: Doctor's Order 2 mg (0.85 mL) subcut QWEEK 4 weeks 3.4 mL 3RF E11.42 - Type 2 diabetes mellitus with diabetic polyneuropathy, Z79.4 - intermediate designer (current) use of insulin magnesium oxide Discontinued Reason: None 500 mg PO DAILY 90 days 90 caps 1RF R25.2 - Cramp and spasm Coding Level of Care Code Est Pt Level 4 (26399) Diagnoses Type 2 diabetes mellitus with hyperglycemia, with long-term current use of insulin E11.65; Z79.4 Diabetes mellitus longterm insulin use: with computer terminal operator use Diabetes mellitus complication status: with hyperglycemia High cholesterol E78.00 Primary osteoarthritis of both knees M17.0 Osteoarthritis location: knee Osteoarthritis type: primary Laterality: bilateral Bipolar disorder, current episode mixed, mild F31.61 Active/Remission status: currently active Current bipolar episode type: mixed Current episode severity: mild Type 2 diabetes mellitus with diabetic polyneuropathy, with long-term current use of insulin E11.42; Z79.4 Diabetes mellitus computer terminal operator insulin use: with computer terminal operator use Gastroesophageal reflux disease without esophagitis K21.9 Esophagitis presence: without esophagitis PAD (peripheral artery disease) I73.9 Additional Codes DARCY-7 Assessment Billing - DARCY-7 Assessment Tool: DARCY-7 Assessment 36744 ([id number])
== END 2023-09-29 09:18 | disposition home or self-care (01) ==
PROVIDERS: PCP Physician Assistant; Visit Provider Physician Assistant
DX: E11.65 Type 2 diabetes mellitus with hyperglycemia (principal); Z79.4 Long term (current) use of insulin; F31.61 Bipolar disorder, current episode mixed, mild; E11.42 Type 2 diabetes mellitus with diabetic polyneuropathy; I73.9 Peripheral vascular disease, unspecified; E78.00 Pure hypercholesterolemia, unspecified; M17.0 Bilateral primary osteoarthritis of knee; K21.9 Gastro-esophageal reflux disease without esophagitis
CPT/HCPCS: 83036; 99214

== ENCOUNTER 2023-11-16 08:30 | Outpatient (AMB) | payer MEDICARE, SELFPAY ==
--- NOTE | 2023-11-16 08:33 | MHC.OFFVIS ---
Intake Visit Reasons: OV-B/L knee injection-last inj. 08/17/23 Intake Note: Clinton is a 68 year old male who presents today for a follow up of his bilateral knee OA. Both of his knees were injected last on 08/17/23. HX of DM Patient reports that these injections were helpful and he would like to repeat injections today Allergies Penicillins Allergy (Verified 09/29/23 08:56) hives magnesium Adverse Reaction (Intermediate, Verified 09/29/23 09:06) hyperglycemia HPI HPI OV-B/L knee injection-last inj. 08/17/23: Details: Clinton is a 68 year old male who presents today for a follow up of his bilateral knee OA. Both of his knees were injected last on 08/17/23. HX of DM Patient reports that these injections were helpful and he would like to repeat injections today PFSH Medical History Tinea pedis Obesity due to excess calories Poor circulation of extremity Type 2 diabetes mellitus with diabetic polyneuropathy Hypertension High cholesterol Diabetes Surgical History Hx of endoscopy Hx of colonoscopy Hx of hand surgery Hx of vasectomy Family History Mother Multiple sclerosis Father No problems noted. Social History Housing: House Alcohol intake: former Patient Tobacco Use Status: Never used Tobacco e-Cigarette/Vaping Use: Never Used Second Hand Smoke Exposure: No service: No Current occupational status: retired Cognitive needs: No Hearing needs: No Vision needs: Yes Physical Exam Const General: no acute distress, alert and awake Orientation/consciousness: patient oriented x3 HEENT Head: Yes normocephalic and Yes atraumatic Eyes EOM: EOMs intact bilaterally Resp Effort & Inspection: normal respiratory effort and able to speak in complete sentences Cardio Jugular venous distension: no JVD Skin General skin exam: turgor normal Rashes: no rashes Neuro General: patient oriented x3 Extrem Other: varus bilateral knees with varus thrust bilaterally mild ttp medial joint line bilaterally Psych Appearance: grossly normal Affect: normal affect Attitude: cooperative Office Procedures Joint Injection/Drain Joint Injection/Drain Details: Injected 1 mL of Decadron and 3 mL 1% lidocaine and 3 mL of 0.25% Marcaine. Site was prepped using aseptic technique. Patient tolerated the procedure well. Primary Site: right knee Secondary Site: left knee Approach Used: anterolateral Coding 90070 - Large joint 01264 - Glenohumeral/Tronchanteric Bursa/Intraarticular Procedure code (CPT) selection complete Assessment & Plan Assessment & Plan (1) Type 2 diabetes mellitus with diabetic polyneuropathy: Code(s): E11.42 - Type 2 diabetes mellitus with diabetic polyneuropathy Category: Medical Qualifiers: Diabetes mellitus care home insulin use: with long chain dyeing machine operator use Qualified Code(s): E11.42 - Type 2 diabetes mellitus with diabetic polyneuropathy; Z79.4 - long term care administrator (current) use of insulin Plan: Discussed hyperglycemic effects of steroids (2) Knee osteoarthritis: Code(s): M17.9 - Osteoarthritis of knee, unspecified Category: Medical Plan: Bilateral knee injections. Currently his knee OA is managed and injections are helpful. May follow up as needed. Discussed the hyperglycemic effects of steroids. Plan I injected both of his knees today, he may return for repeat injections no sooner than 3 months Coding Level of Care Code Est Pt Level 3 (53021) Diagnoses Type 2 diabetes mellitus with diabetic polyneuropathy, with long-term current use of insulin E11.42; Z79.4 Diabetes mellitus care home insulin use: with long chain dyeing machine operator use Knee osteoarthritis M17.9 CPT Codes Coding - 11161 Large joint: 61478 - Large joint ([id number]) Coding - Joint 7: 73307 - Glenohumeral/Tronchanteric Bursa/Intraarticular ([id number])
== END 2023-11-16 08:46 | disposition home or self-care (01) ==
PROVIDERS: PCP Physician Assistant; Visit Provider Orthopaedic Surgery
DX: M17.0 Bilateral primary osteoarthritis of knee (principal); E11.42 Type 2 diabetes mellitus with diabetic polyneuropathy; Z79.4 Long term (current) use of insulin
CPT/HCPCS: 20610; 99213

== ENCOUNTER → 2023-11-16 08:30 | Outpatient (BNVA) | payer MEDICARE, SELFPAY | PROVIDERS: PCP Physician Assistant; Visit Provider Orthopaedic Surgery | DX: M17.0 Bilateral primary osteoarthritis of knee (principal); E11.42 Type 2 diabetes mellitus with diabetic polyneuropathy; Z79.4 Long term (current) use of insulin | CPT/HCPCS: 20610; 99212; J0665; J1100 ==

== ENCOUNTER 2024-01-18 12:30 | Outpatient (AMB) | payer MEDICARE, SELFPAY ==
--- NOTE | 2024-01-18 12:33 | A.OFFVIS_ITS ---
Vital Signs 01/18/24 12:35 Height 5 ft 11 in Weight 225 lb BMI 31.4 Intake Visit Reasons: Bilateral Knee Durolane Intake Note: Clinton is a 68 year old male who presents today for Bilateral Knee Durolane injections. Hx of DM. Allergies Penicillins Allergy (Verified 01/18/24 12:35) hives magnesium Adverse Reaction (Intermediate, Verified 01/18/24 12:35) hyperglycemia HPI HPI Bilateral Knee Durolane: Details: Clinton is a 68 year old male who presents today for Bilateral Knee Durolane injections. Hx of DM. [facility] Medical History Tinea pedis Obesity due to excess calories Poor circulation of extremity Type 2 diabetes mellitus with diabetic polyneuropathy Hypertension High cholesterol Diabetes Surgical History Hx of endoscopy Hx of colonoscopy Hx of hand surgery Hx of vasectomy Family History Mother Multiple sclerosis Father No problems noted. Social History Housing: House Alcohol intake: former Patient Tobacco Use Status: Never used Tobacco e-Cigarette/Vaping Use: Never Used Second Hand Smoke Exposure: No service: No Current occupational status: retired Cognitive needs: No Hearing needs: No Vision needs: Yes Physical Exam Vital Signs: BMI result Body Mass Index 31.4 Office Procedures Joint Injection/Drain Joint Injection/Drain Details: Injected Durolane. Site was prepped using aseptic technique. Patient tolerated the procedure well. Primary Site: right knee Secondary Site: left knee Approach Used: anterolateral Coding - Large joint - Glenohumeral/Tronchanteric Bursa/Intraarticular Procedure code (CPT) selection complete Assessment & Plan Assessment & Plan (1) Knee osteoarthritis: Code(s): M17.9 - Osteoarthritis of knee, unspecified Category: Medical Plan: Injected Durtolane bilateral knees Coding Level of Care Code Est Pt Level 2 (79098) Diagnoses Knee osteoarthritis M17.9 CPT Codes Coding - Large joint: 65230 - Large joint ([id number]) Coding - Joint 7: - Glenohumeral/Tronchanteric Bursa/Intraarticular ([id number])
[2024-01-18 12:35] VITALS: BMI 31.4
== END 2024-01-18 15:38 | disposition home or self-care (01) ==
PROVIDERS: PCP Physician Assistant; Visit Provider Orthopaedic Surgery
DX: M17.0 Bilateral primary osteoarthritis of knee (principal)
CPT/HCPCS: 20610

== ENCOUNTER → 2024-01-18 12:30 | Outpatient (BNVA) | payer MEDICARE, SELFPAY | PROVIDERS: PCP Physician Assistant; Visit Provider Orthopaedic Surgery | DX: M17.0 Bilateral primary osteoarthritis of knee (principal) | CPT/HCPCS: 20610; J7318 ==

== ENCOUNTER 2024-02-06 07:59 | Outpatient (REF) | payer MEDICARE, SELFPAY ==
[2024-02-06 11:33] LABS: Hematocrit 50.9 % (42.0-52.0); Hemoglobin 17.1 g/dl (14.0-18.0); Mean Corpuscular HGB Conc 33.6 g/dl (31.0-36.0); Mean Corpuscular Hemoglobin 30.3 pg (27.0-33.0); Mean Corpuscular Volume 90.2 fL (80.0-98.0); Mean Platelet Volume 11.7 fL (9.4-12.4); Platelet Count 162 X10*3/uL (160-400); Red Blood Count 5.64 X10*6/uL (4.60-5.80); Red Cell Distribution Width 13.6 % (11.0-16.0); White Blood Count 7.3 X10*3/uL (4.8-10.8)
[2024-02-06 11:54] LABS: Alanine Aminotransferase 24 U/L (0-40); Albumin Level 4.1 g/dL (3.5-5.0); Alkaline Phosphatase 61 U/L (39-117); Anion Gap 16 (12-20); Aspartate Amino Transferase 24 U/L (5-37); Bilirubin Total 0.6 mg/dL (0.0-1.0); Blood Urea Nitrogen 20 mg/dL (9-16); Calcium 9.6 mg/dL (8.4-10.2); Carbon Dioxide 25 mmol/L (22-29); Chloride 106 mmol/L (96-108); Cholesterol 152 mg/dL (<200); Estimated Glomerular Filt Rate > 60; Glucose Fasting 77 mg/dL (60-99); HDL Cholesterol 41 mg/dL (>40); LDL Cholesterol Calculated 87 mg/dL (<100); Potassium 4.3 mmol/L (3.3-5.1); Sodium 143 mmol/L (135-145); Triglycerides 122 mg/dL (<150)
[2024-02-06 12:47] LABS: Prostate Specific Antigen Scr 0.51 ng/mL (<0.05-4.0)
[2024-02-06 13:36] LABS: Free T4 (Free Thyroxine) 0.76 ng/dL (0.71-1.85)
== END 2024-02-06 08:00 | disposition home or self-care (01) ==
LOC: HO.HMGCLDS 07:59
PROVIDERS: PCP Physician Assistant; Visit Provider Physician Assistant
DX: R79.89 Other specified abnormal findings of blood chemistry (principal); I10 Essential (primary) hypertension; E78.00 Pure hypercholesterolemia, unspecified; E11.42 Type 2 diabetes mellitus with diabetic polyneuropathy; Z79.4 Long term (current) use of insulin; Z12.5 Encounter for screening for malignant neoplasm of prostate
CPT/HCPCS: 36415; 80053; 80061; 84153; 84439; 84443; 85027

== ENCOUNTER 2024-02-25 09:10 | Outpatient (AMB) | payer MEDICARE, SELFPAY ==
--- NOTE | 2024-02-25 09:28 | MHC.PC.OV ---
Vital Signs 02/25/24 09:30 Height 5 ft 11 in Weight 227 lb 6 oz BMI 31.7 BP 116/68 Blood Pressure Location Lt brachial Position Sitting Pulse 86 Pulse Source Pulse Oximeter Pulse Oximetry (%) 96 Oxygen Delivery Method Room Air Intake Visit Reasons: Annual PE Maintenance Director Required: No Accompanied by: Self / Same As Patient Allergies Penicillins Allergy (Verified 02/25/24 09:44) hives magnesium Adverse Reaction (Intermediate, Verified 02/25/24 09:44) hyperglycemia Medication List - Last Reconciled 02/25/24 by Richie Norton PA-C acetaminophen (Tylenol Extra Strength) 500 mg PO Q6H PRN aripiprazole 2 mg PO DAILY benazepril 20 mg PO DAILY blood sugar diagnostic (Swarm Mobile Verio test strips) To test blood glucose 4 times a day blood-glucose meter (DigiPathuch Verio Meter) To test blood glucose 4 times a day blood-glucose meter,continuous (Dexcom G6 Assembled Wood Products Repairer) As directed blood-glucose sensor (DexAccess Network G6 Sensor device) As directed blood-glucose transmitter (DexAccess Network G6 Transmitter device) As directed budesonide-formoterol 160-4.5 mcg/actuation 2 puffs PO BID 30 days canagliflozin (Invokana) 300 mg PO DAILY celecoxib (Celebrex) 200 mg PO BID 90 days ezetimibe 10 mg PO DAILY fluticasone propionate 50 mcg/actuation (Flonase Allergy Relief) 1 spray intranasal Q12H 30 days insulin aspart U-100 (Novolog FlexPen U-100 Insulin aspart) 6 units (0.06 mL) subcut TID 30 days insulin glargine U-300 conc (Toujeo Max U-300 SoloStar) 50 units (0.1667 mL) subcut BID lancets (DigiPathuch Delica Plus Lancet) To test blood glucose 4 times a day nystatin 1 appl topical DAILY 15 days nystatin 1 appl topical DAILY 15 days pantoprazole 40 mg PO DAILY pen needle, diabetic (BD Fela 2nd Gen Pen Needle) 4 times a day potassium chloride ER (Klor-Con) 10 mEq PO DAILY 30 days pramipexole 1 mg PO BEDTIME 30 days prednisone 5 mg PO DAILY 30 days rosuvastatin 5 mg PO DAILY 90 days semaglutide (Ozempic) 1 mg (0.75 mL) subcut QWEEK 4 weeks simethicone (Gas Relief (simethicone)) 80 mg PO BID-QID PRN 30 days venlafaxine ER 150 mg PO DAILY Tobacco use date assessed: 09/29/23 Dental Screening Dental Screen Date: 09/29/23 HPI Annual PE HPI Details Patient is a 68-year-old male here today for a routine annual physical.? Patient has a past medical history significant for type 2 diabetes, GERD, anxiety and depression, polyarthritis, hyperlipidemia. Patient is due for cataract removal March 23 and needs preop clearance. .. GERD: reports having some worsening GERD symptoms. Continues on pantoprazole 40 mg daily. He reports audible gastric noises. Otherwise denies any vomiting, nausea or diarrhea. .. DMII: reports Has been taking his blood sugars and report 100s to 130s.? Most recent A1c at 6.6 ?Stopped his follow up with endocrine .? He does report having some lower sugar numbers in the mornings and reduced his Tresiba to 50 units b.i.d. at night which have normalized sugars. .. Hyperlipidemia:? Continues on statin therapy and total cholesterol and LDL within excellent control. He does report having lower extremity muscle cramps and pain thus will reduce his dose of statin therapy and stop Zetia. Goal LDL will still be below 100 .. Depression:? Has been stable on current doses of mental medications.? Otherwise eyes any SI or HI. VAccine: UTD with COVID , TDap and PCV .. Colon cancer screening: [facility] in 2018- normal repeat 10 years Laboratory Tests 02/06/24 08:12 RBC 5.64 Hct 50.9 Potassium 4.3 Creatinine 0.93 Fasting Glucose 77 TSH 0.20 L PFS Medical History Tinea pedis Obesity due to excess calories Poor circulation of extremity Type 2 diabetes mellitus with diabetic polyneuropathy Hypertension High cholesterol Diabetes Surgical History Hx of endoscopy Hx of colonoscopy Hx of hand surgery Hx of vasectomy Family History Mother Multiple sclerosis Father No problems noted. Social History (Updated 02/25/24 @ 09:51 by Richie Norton PA-C) Housing: House Alcohol intake: former Patient Tobacco Use Status: Never used Tobacco e-Cigarette/Vaping Use: Never Used Second Hand Smoke Exposure: No service: No Current occupational status: retired Cognitive needs: No Hearing needs: No Vision needs: Yes Questionnaire Thrive Questionnaire Date Thrive assessed: 09/29/23 DARCY-7 AMB Questionnaire DARCY-7 Date DARCY - 7 assessed: 09/29/23 Source: Developed by Drs. Pedro Akins, Alea Rodriguez, Brett Sanchez and colleagues, with an educational jaelyn from [employer]. Review of Systems Const Denies body aches, Denies chills, Denies excessive sweating, Denies fatigue, Denies fever(s) and Denies headache(s) Eyes Denies blurry vision ENT Denies dysphagia, Denies vertigo, Denies dizziness, Denies headache(s), Denies hearing loss and Denies tinnitus Card Denies chest pain, Denies chest pain with activity, Denies syncope, Denies irregular heart rhythm and Denies dyspnea Resp Denies chest congestion, Denies cough, Denies hemoptysis, Denies dyspnea and Denies wheezing GI Denies abdominal pain, Denies melena, Denies hematochezia, Denies coffee ground emesis, Denies dysphagia, Denies diarrhea, Denies nausea and Denies vomiting Denies difficulty urinating, Denies dysuria, Denies urinary frequency, Denies urinary hesitancy and Denies urinary urgency Musc Denies arthralgias, Denies limited range of motion, Denies muscle cramps and Denies muscle weakness Skin/Breast Denies rash and Denies skin ulcer Neuro Denies Abnormal speech present, Denies confusion, Denies vertigo, Denies dizziness, Denies syncope, Denies headache(s), Denies memory loss and Denies seizure-like activity Psych Denies anxiety, Denies confusion, Denies depression, Denies memory loss, Denies panic attacks and Denies paranoia Endo Denies excessive sweating, Denies fatigue, Denies flushing, Denies polydipsia and Denies polyuria Aller/Immun Denies wheezing Physical exam (Primary Care) Vital Signs: Last Vital Signs Pulse 86 02/25/24 09:30 BP 116/68 02/25/24 09:30 Pulse Ox 96 02/25/24 09:30 Oxygen Delivery Method Room Air 02/25/24 09:30 BMI result Body Mass Index 31.7 Tobacco/Smoking Status: Tobacco use Status Tobacco use date assessed 09/29/23 02/25/24 09:28 Patient Tobacco Use Status Never used Tobacco 02/25/24 09:51 e-Cigarette/Vaping Use Never Used 02/25/24 09:51 Thrive Assessment: Date of Thrive Assessment Date Thrive assessed 09/29/23 02/25/24 09:28 Const General: cooperative, comfortable, no acute distress, alert and awake; No confusion Orientation/consciousness: oriented to person, oriented to place, patient oriented x3 and No confusion HENMT Head: Yes normocephalic Ears: external ears normal and TM's normal bilaterally Face and sinus: No sinus tenderness Mouth: Normal oral and palatal mucosa present and tongue normal Teeth and gingiva: dentition normal and gingiva normal Throat: Yes posterior oropharynx normal, Yes tonsils normal and Yes uvula midline Eyes Conjunctivae: conjunctivae normal Sclerae: sclerae normal Pupils: Equal, round and reactive pupils present EOM: EOMs intact bilaterally Direct Ophthalmoscopy: No no photophobia Neck Neck: Yes no lymphadenopathy, No tender and Yes no JVD Thyroid: Thyroid normal Carotids: no bruits Chest Chest palpation & inspection: no tenderness Resp Effort & Inspection: normal respiratory effort, no audible wheezes, not labored and no stridor Auscultation: no crackles, no rales, no rhonchi and no wheezes Cardio Jugular venous distension: no JVD Rate: regular rate, not bradycardic and not tachycardic Rhythm: regular rhythm Bruits: no carotid bruits Peripheral pulses: Peripheral pulses 2+ throughout GI Inspection: Yes normal to inspection, No abdominal wall ecchymosis and No visible herniation Palpation (GI): Soft to palpation, nontender, no guarding, not rigid and No hepatosplenomegaly present Auscultation: normoactive bowel sounds General: Yes no CVA tenderness Back/Spine/Pelvis Back: no CVA tenderness and No back tenderness Cervical Spine: cervical ROM normal Thoracic/Lumbar Spine: thoracic and lumbar spine normal to inspection, straight leg raise negative bilaterally, No thoraco-lumbar ROM limited and No lumbar spinal tenderness Skin Lesions: no lesions Rashes: no rashes Wounds: no wounds Neuro General: oriented to person, oriented to place, patient oriented x3, CN's II-XI intact bilaterally and No confusion Cranial nerves: Yes Equal, round and reactive pupils present and Yes Normal accommodation reflex present Cognition (Neuro): normal cognition Speech: No Abnormal speech present Gait exam (Neuro): Normal gait present Motor exam (neuro): 5/5 motor strength present throughout Extrem Right upper extremity: full ROM; no cyanosis Left upper extremity: full ROM; no cyanosis Right lower extremity: no edema Left lower extremity: no edema Psych Appearance: grossly normal Mental Status: mental status grossly normal Affect: normal affect Attitude: cooperative Thought process: Normal thought process present Results AMB Hemoglobin A1c AMB Hemoglobin A1c 6.6 % Last Edit by KIARA Carmen on 02/25/24 09:47 Results Reviewed Results Reviewed: Laboratory Last Values Hgb A1c (Clinic) 6.6 % (4.0-6.0) H 02/25/24 09:17 Assessment and Plan Assessment & Plan (1) Annual physical exam: Code(s): Z00.00 - Encounter for general adult medical examination without abnormal findings (2) DMII (diabetes mellitus, type 2): Code(s): E11.9 - Type 2 diabetes mellitus without complications Qualifiers: Diabetes mellitus complication status: with hyperglycemia Diabetes mellitus [facility] insulin use: with [employer] customer service use Qualified Code(s): E11.65 - Type 2 diabetes mellitus with hyperglycemia; Z79.4 - jail (current) use of insulin Plan: Patient's type 2 diabetes well controlled with A1c is 6.3. Goal A1c to be below 7.0. Will continue his current dose of diabetic medication and will continue working extensively on lifestyle modifications to control his blood sugars. (3) High cholesterol: Code(s): E78.00 - Pure hypercholesterolemia, unspecified Plan: Patient's lipid panel within excellent control. Will reduce his statin potency as he has been having leg cramps. Goal LDL to be below 100 (4) Osteoarthritis: Code(s): M19.90 - Unspecified osteoarthritis, unspecified site Qualifiers: Laterality: bilateral Osteoarthritis location: knee Osteoarthritis type: primary Qualified Code(s): M17.0 - Bilateral primary osteoarthritis of knee Plan: Patient appears to pretty advanced osteoarthritis. Continues on Celebrex and prednisone and reports improved polyarthralgia relief. He has also follow-up with orthopedic surgeon has gotten injection in bilateral knees. (5) Type 2 diabetes mellitus with diabetic polyneuropathy: Code(s): E11.42 - Type 2 diabetes mellitus with diabetic polyneuropathy Qualifiers: Diabetes mellitus [employer] customer [employer] insulin use: with [facility] use Qualified Code(s): E11.42 - Type 2 diabetes mellitus with diabetic polyneuropathy; Z79.4 - long term (current) use of insulin (6) GERD (gastroesophageal reflux disease): Code(s): K21.9 - Gastro-esophageal reflux disease without esophagitis Qualifiers: Esophagitis presence: without esophagitis Qualified Code(s): K21.9 - Gastro-esophageal reflux disease without esophagitis Plan: Continues on PPI therapy. He reports over the last several weeks having gas buildup in his epigastrium any has audible gastric sounds. Will supply patient with simethicone. (7) Pre-op evaluation: Code(s): Z01.818 - Encounter for other preprocedural examination Plan: Patient is a low CV risk for needed cataract procedure. Most recent labs stable, EKG stable. Patient is medically clear for needed cataract procedure. Orders: Orders Lipid Panel 02/25/24 E78.00 - Pure hypercholesterolemia, unspecified AMB Hemoglobin A1c 02/25/24 E11.42 - Type 2 diabetes mellitus with diabetic polyneuropathy, Z79.4 - long term (current) use of insulin ECG 12 lead EKG 03/03/24 Z01.818 - Encounter for other preprocedural examination Comprehensive [place]. Panel Fast 02/25/24 E11.42 - Type 2 diabetes mellitus with diabetic polyneuropathy, Z79.4 - jail (current) use of insulin Microalbumin, Random (w Creat) 02/25/24 I10 - Essential (primary) hypertension Complete Blood Count no Diff 02/25/24 J45.909 - Unspecified asthma, uncomplicated Patient Instructions: Goal: A1c to be below 7.0 Barriers: Adherence to physical activity and healthy eating habits Coding Level of Care Code Est Pt Prev Care >65y(83728) Diagnoses Annual physical exam Z00.00 Type 2 diabetes mellitus with hyperglycemia, with long-term current use of insulin E11.65; Z79.4 Diabetes mellitus complication status: with hyperglycemia Diabetes mellitus [employer] customer [employer] insulin use: with [facility] use High cholesterol E78.00 Primary osteoarthritis of both knees M17.0 Laterality: bilateral Osteoarthritis location: knee Osteoarthritis type: primary Type 2 diabetes mellitus with diabetic polyneuropathy, with long-term current use of insulin E11.42; Z79.4 Diabetes mellitus [facility] insulin use: with [facility] use Gastroesophageal reflux disease without esophagitis K21.9 Esophagitis presence: without esophagitis Pre-op evaluation Z01.818
[2024-02-25 09:30] VITALS: BP 116/68; PULSE 86; O2SAT 96; BMI 31.7
== END 2024-02-25 10:27 | disposition home or self-care (01) ==
PROVIDERS: PCP Physician Assistant; Visit Provider Physician Assistant
DX: E11.42 Type 2 diabetes mellitus with diabetic polyneuropathy (principal); Z79.4 Long term (current) use of insulin
CPT/HCPCS: 83036; 99397

== ENCOUNTER → 2024-03-03 10:19 | Outpatient (REF) | payer MEDICARE, SELFPAY ==
--- NOTE | 2024-03-03 10:23 | ECG_ITS ---
Test Reason : pre op Blood Pressure : / mmHG Vent. Rate : 074 BPM Atrial Rate : 074 BPM P-R Int : 192 ms QRS Dur : 100 ms QT Int : 410 ms P-R-T Axes : 049 -49 020 degrees QTc Int : 455 ms Normal sinus rhythm Left anterior fascicular block Cannot rule out Inferior infarct (masked by fascicular block?) , age undetermined Cannot rule out Anterior infarct , age undetermined Abnormal ECG No previous ECGs available Referred By: Richie Norton Electronically Signed By:
--- NOTE | 2024-03-03 10:43 | ECG_ITS ---
Test Reason : pre op Blood Pressure : / mmHG Vent. Rate : 074 BPM Atrial Rate : 074 BPM P-R Int : 204 ms QRS Dur : 092 ms QT Int : 402 ms P-R-T Axes : 053 -49 009 degrees QTc Int : 446 ms Normal sinus rhythm Left axis deviation Mild KS prolongation No previous ECGs available Referred By: Richie Norton Electronically Signed By:DELORIS WRIGHT
== END ==
LOC: HO.CARD 10:19
PROVIDERS: PCP Physician Assistant; Visit Provider Physician Assistant
DX: Z01.818 Encounter for other preprocedural examination (principal)
CPT/HCPCS: 93005

== ENCOUNTER → 2024-03-03 10:43 | Outpatient (BNV) | payer MEDICARE, SELFPAY | PROVIDERS: PCP Physician Assistant; Visit Provider Internal Medicine | DX: I44.4 Left anterior fascicular block (principal) | CPT/HCPCS: 93010 ==

== ENCOUNTER 2024-04-25 08:34 | Outpatient (AMB) | payer MEDICARE, SELFPAY ==
[2024-04-25 08:38] VITALS: BMI 31.7
--- NOTE | 2024-04-25 08:38 | A.OFFVIS_ITS ---
Vital Signs 04/25/24 08:38 Height 5 ft 11 in Weight 227 lb BMI 31.7 Intake Visit Reasons: OV-B/L knee injection-last inj. 01/18/24 Intake Note: Clinton is a 68 year old male who presents today for a follow up of his Bilateral Knee OA. Bilateral Knee Durolane injected 01/18/24. Patient reports that the gel injections only provided good relief and he would like to proceed with Bilateral knee cortisone injections today and he would like to repeat gel at the 6 month hammad. Allergies Penicillins Allergy (Verified 04/25/24 08:38) hives magnesium Adverse Reaction (Intermediate, Verified 04/25/24 08:38) hyperglycemia HPI HPI OV-B/L knee injection-last inj. 01/18/24: Details: Clinton is a 68 year old male who presents today for a follow up of his Bilateral Knee OA. Bilateral Knee Durolane injected 01/18/24. Patient reports that the gel injections only provided good relief and he would like to proceed with Bilateral knee cortisone injections today and he would like to repeat gel at the 6 month hammad. [facility] Medical History Tinea pedis Obesity due to excess calories Poor circulation of extremity Type 2 diabetes mellitus with diabetic polyneuropathy Hypertension High cholesterol Diabetes Surgical History Hx of endoscopy Hx of colonoscopy Hx of hand surgery Hx of vasectomy Family History Mother Multiple sclerosis Father No problems noted. Social History (Updated 02/25/24 @ 09:51 by Richie Norton PA-C) Housing: House Alcohol intake: former Patient Tobacco Use Status: Never used Tobacco e-Cigarette/Vaping Use: Never Used Second Hand Smoke Exposure: No service: No Current occupational status: retired Cognitive needs: No Hearing needs: No Vision needs: Yes Physical Exam Vital Signs: BMI result Body Mass Index 31.7 Extrem Other: Varus alignment bilateral knees. Tenderness to palpation medial compartment that is mild. Bilateral knee effusion right greater than left. Office Procedures Joint Injection/Aspiration Joint Injection/Aspiration Details: Injected 1 mL of Decadron and 3 mL 1% lidocaine and 3 mL of 0.25% Marcaine. Site was prepped using aseptic technique. Patient tolerated the procedure well. Primary Site: right knee Secondary Site: left knee Approach Used: anterolateral Coding - Large joint - Glenohumeral/Tronchanteric Bursa/Intraarticular Procedure code (CPT) selection complete Assessment & Plan Assessment & Plan (1) Knee osteoarthritis: Code(s): M17.9 - Osteoarthritis of knee, unspecified Category: Medical Plan: Severe bilateral varus compartment osteoarthritis with moderate symptoms. I injected bilateral knees today. He is diabetic and I have warned him of the hyperglycemic effects of the injections. We also discussed surgery. He is pretty adamant that he does not walk, nor will he ever want, he replacement surgery. He wants to reconsider gel in 3 months. (2) Type 2 diabetes mellitus with diabetic polyneuropathy: Code(s): E11.42 - Type 2 diabetes mellitus with diabetic polyneuropathy Category: Medical Qualifiers: Diabetes mellitus continuous churn buttermaker insulin use: with snf use Qualified Code(s): E11.42 - Type 2 diabetes mellitus with diabetic polyneuropathy; Z79.4 - skilled nursing (current) use of insulin Plan: Hyperglycemic effects of steroids explained. He is aware. Coding Level of Care Code Est Pt Level 4 (53893) Diagnoses Knee osteoarthritis M17.9 Type 2 diabetes mellitus with diabetic polyneuropathy, with long-term current use of insulin E11.42; Z79.4 Diabetes mellitus snf insulin use: with snf use CPT Codes Coding - Large joint: 62739 - Large joint ([id number]) Coding - Joint 7: - Glenohumeral/Tronchanteric Bursa/Intraarticular ([id number])
== END 2024-04-25 08:59 | disposition home or self-care (01) ==
PROVIDERS: PCP Physician Assistant; Visit Provider Orthopaedic Surgery
DX: M17.9 Osteoarthritis of knee, unspecified (principal); E11.42 Type 2 diabetes mellitus with diabetic polyneuropathy; Z79.4 Long term (current) use of insulin
CPT/HCPCS: 20610; 99214

== ENCOUNTER → 2024-04-25 08:34 | Outpatient (BNVA) | payer MEDICARE, SELFPAY | PROVIDERS: PCP Physician Assistant; Visit Provider Orthopaedic Surgery | DX: M17.0 Bilateral primary osteoarthritis of knee (principal); E11.42 Type 2 diabetes mellitus with diabetic polyneuropathy; Z79.4 Long term (current) use of insulin | CPT/HCPCS: 20610; 99212; J0665; J1100; J2003 ==

== ENCOUNTER 2024-07-28 08:24 | Outpatient (AMB) | payer MEDICARE, MEDICAID, SELFPAY ==
[2024-07-28 08:27] VITALS: BMI 31.7
--- NOTE | 2024-07-28 08:27 | MHC.OFFVIS ---
Vital Signs 07/28/24 08:27 Height 5 ft 11 in Weight 227 lb BMI 31.7 Intake Visit Reasons: Inj-B/L knee Durolane Intake Note: Clinton is a 69 year old male who presents today for Bilateral Knee Durolane Injections. Allergies Penicillins Allergy (Verified 04/25/24 08:38) hives magnesium Adverse Reaction (Intermediate, Verified 04/25/24 08:38) hyperglycemia HPI HPI Inj-B/L knee Durolane: Details: Clinton is a 69 year old male who presents today for Bilateral Knee Durolane Injections. [facility] Medical History Tinea pedis Obesity due to excess calories Poor circulation of extremity Type 2 diabetes mellitus with diabetic polyneuropathy Hypertension High cholesterol Diabetes Surgical History Hx of endoscopy Hx of colonoscopy Hx of hand surgery Hx of vasectomy Family History Mother Multiple sclerosis Father No problems noted. Social History Housing: House Alcohol intake: former Patient Tobacco Use Status: Never used Tobacco e-Cigarette/Vaping Use: Never Used Second Hand Smoke Exposure: No service: No Current occupational status: retired Cognitive needs: No Hearing needs: No Vision needs: Yes Physical Exam Vital Signs: BMI result Body Mass Index 31.7 Extrem Other: skin c/d/i FUll ROM Office Procedures Joint Inj/Aspir; Non-Pain Clin Joint Injection/Drain Details: Injected Durolane Site was prepped using aseptic technique. Patient tolerated the procedure well. Shoulders, Hips, Knees, Knee Large Joint Injection 11131: Bilateral Knee Coding Procedure code (CPT) selection complete Assessment & Plan Assessment & Plan (1) Knee osteoarthritis: Code(s): M17.9 - Osteoarthritis of knee, unspecified Category: Medical Plan: Bilateral Durolane F/u 3 mo Coding Level of Care Code Est Pt Level 2 (98719) Diagnoses Knee osteoarthritis M17.9 CPT Codes Shoulders, Hips, Knees, - Knee Large Joint Injection 70314: Bilateral Knee ([id number])
== END 2024-07-28 08:57 | disposition home or self-care (01) ==
PROVIDERS: PCP Physician Assistant; Visit Provider Orthopaedic Surgery
DX: M17.0 Bilateral primary osteoarthritis of knee (principal)
CPT/HCPCS: 20610

== ENCOUNTER → 2024-07-28 08:24 | Outpatient (BNVA) | payer MEDICARE, MEDICAID, SELFPAY | PROVIDERS: PCP Physician Assistant; Visit Provider Orthopaedic Surgery | DX: M17.0 Bilateral primary osteoarthritis of knee (principal) | CPT/HCPCS: 20610; J7318 ==

== ENCOUNTER 2024-08-29 08:04 | Outpatient (REF) | payer MEDICARE, MEDICAID, SELFPAY ==
[2024-08-29 10:06] LABS: Hematocrit 48.4 % (42.0-52.0); Hemoglobin 16.2 g/dl (14.0-18.0); Mean Corpuscular HGB Conc 33.5 g/dl (31.0-36.0); Mean Corpuscular Hemoglobin 30.6 pg (27.0-33.0); Mean Corpuscular Volume 91.3 fL (80.0-98.0); Platelet Count 163 X10*3/uL (160-400); Red Cell Distribution Width 14.1 % (11.0-16.0); White Blood Count 6.9 X10*3/uL (4.8-10.8)
[2024-08-29 10:47] LABS: Alanine Aminotransferase 28 U/L (0-40); Albumin Level 4.1 g/dL (3.5-5.0); Alkaline Phosphatase 79 U/L (39-117); Anion Gap 12 (12-20); Aspartate Amino Transferase 33 U/L (5-37); Bilirubin Total 0.6 mg/dL (0.0-1.0); Blood Urea Nitrogen 17 mg/dL (9-16); Calcium 9.4 mg/dL (8.4-10.2); Carbon Dioxide 27 mmol/L (22-29); Chloride 109 mmol/L (96-108); Cholesterol 136 mg/dL (<200); Estimated Glomerular Filt Rate > 60; Glucose Fasting 98 mg/dL (60-99); HDL Cholesterol 36 mg/dL (>40); LDL Cholesterol Calculated 77 mg/dL (<100); Potassium 3.9 mmol/L (3.3-5.1); Sodium 144 mmol/L (135-145); Total Protein 7.5 g/dL (6.5-8.0); Triglycerides 115 mg/dL (<150)
[2024-08-29 10:51] LABS: TSH reflex Free T4 0.15 uIU/mL (0.32-4.0)
[2024-08-29 11:34] LABS: Free T4 (Free Thyroxine) 0.78 ng/dL (0.71-1.85)
== END 2024-08-29 08:05 | disposition home or self-care (01) ==
LOC: HO.HMGCLDS 08:04
PROVIDERS: PCP Physician Assistant; Visit Provider Physician Assistant
DX: R79.89 Other specified abnormal findings of blood chemistry (principal); E11.42 Type 2 diabetes mellitus with diabetic polyneuropathy; F31.61 Bipolar disorder, current episode mixed, mild; E78.00 Pure hypercholesterolemia, unspecified; I10 Essential (primary) hypertension; Z79.4 Long term (current) use of insulin
CPT/HCPCS: 36415; 80053; 80061; 83036; 84439; 84443; 85027; 96127; 99212

== ENCOUNTER 2024-08-29 15:17 | Outpatient (AMB) | payer MEDICARE, MEDICAID, SELFPAY ==
[2024-08-29 15:34] VITALS: BP 126/84; PULSE 78; TEMP 36.3; O2SAT 96; BMI 32.2
--- NOTE | 2024-08-29 15:34 | MHC.PC.OV ---
Vital Signs 08/29/24 15:34 Height 5 ft 11 in Weight 231 lb 2 oz BMI 32.2 BP 126/84 Blood Pressure Location Lt brachial Position Sitting Pulse 78 Pulse Source Pulse Oximeter Temp 97.3 F Temp Source Temporal Artery Scan Pulse Oximetry (%) 96 Oxygen Delivery Method Room Air Intake Visit Reasons: f/u DMII/ HTN Energy Sales Consultant Required: No Accompanied by: Spouse Allergies Penicillins Allergy (Verified 08/29/24 16:12) hives magnesium Adverse Reaction (Intermediate, Verified 08/29/24 16:12) hyperglycemia Medication List - Last Reconciled 08/29/24 by Richie Norton PA-C acetaminophen (Tylenol Extra Strength) 500 mg PO Q6H PRN aripiprazole 2 mg PO DAILY benazepril 20 mg PO DAILY blood sugar diagnostic (HomeZada Verio test strips) To test blood glucose 4 times a day blood-glucose meter (AirXpandersuch Verio Meter) To test blood glucose 4 times a day blood-glucose meter,continuous ([employer] G6 Lens Inspector) As directed blood-glucose sensor ([employer] G6 Sensor device) As directed blood-glucose transmitter ([employer] G6 Transmitter device) As directed budesonide-formoterol 160-4.5 mcg/actuation 2 puffs PO BID 30 days canagliflozin (Invokana) 300 mg PO DAILY celecoxib (Celebrex) 200 mg PO BID 90 days ezetimibe 10 mg PO DAILY fluticasone propionate 50 mcg/actuation (Flonase Allergy Relief) 1 spray intranasal Q12H 30 days insulin aspart U-100 (Novolog FlexPen U-100 Insulin aspart) 6 units (0.06 mL) subcut TID 30 days insulin glargine U-300 conc (Toujeo Max U-300 SoloStar) 50 units (0.1667 mL) subcut BID lancets (HomeZada Delica Plus Lancet) To test blood glucose 4 times a day nystatin 1 appl topical DAILY 15 days nystatin 1 appl topical DAILY 15 days pantoprazole 40 mg PO DAILY pen needle, diabetic (BD Fela 2nd Gen Pen Needle) 4 times a day potassium chloride ER (Klor-Con) 10 mEq PO DAILY 30 days pramipexole 1 mg PO BEDTIME 30 days rosuvastatin 5 mg PO DAILY 90 days semaglutide (Ozempic) 1 mg (0.75 mL) subcut QWEEK 4 weeks simethicone (Gas Relief (simethicone)) 80 mg PO BID-QID PRN 30 days venlafaxine ER 150 mg PO DAILY Tobacco use date assessed: 09/29/23 Dental Screening Dental Screen Date: 09/29/23 HPI f/u DMII/ HTN HPI Details Patient is a 69 year-old male here today for a routine annual physical.? Patient has a past medical history significant for type 2 diabetes, GERD, anxiety and depression, polyarthritis, hyperlipidemia. .. GERD: reports having some worsening GERD symptoms. Continues on pantoprazole 40 mg daily. He reports audible gastric noises. Otherwise denies any vomiting, nausea or diarrhea. .. DMII: reports Has been taking his blood sugars and report 100s to 130s.? Most recent A1c at 5.6 ?Stopped his follow up with endocrine .? He does report sugars above 200 at 2p- 4p. Has not been taking his short-acting insulin before eats and will switch to preprandial administration. .. Hyperlipidemia:? Continues on statin therapy and total cholesterol and LDL within excellent control. He does report having lower extremity muscle cramps and pain thus will reduce his dose of statin therapy and stop Zetia. Goal LDL will still be below 100 .. Depression:? Has been stable on current doses of mental medications.? Otherwise eyes any SI or HI. Laboratory Tests 02/25/24 08/29/24 08/29/24 09:17 08:13 16:02 RBC 5.30 Creatinine 0.83 Fasting Glucose 98 Hgb A1c (Clinic) 6.6 H 5.6 Cholesterol 136 TSH 0.15 L PFSH Medical History Tinea pedis Obesity due to excess calories Poor circulation of extremity Type 2 diabetes mellitus with diabetic polyneuropathy Hypertension High cholesterol Diabetes Surgical History Hx of endoscopy Hx of colonoscopy Hx of hand surgery Hx of vasectomy Family History Mother Multiple sclerosis Father No problems noted. Social History Housing: House Alcohol intake: former Patient Tobacco Use Status: Never used Tobacco e-Cigarette/Vaping Use: Never Used Second Hand Smoke Exposure: No service: No Current occupational status: retired Cognitive needs: No Hearing needs: No Vision needs: Yes Questionnaire PHQ-9 Over the last 2 weeks, how often have you been bothered by any of the following problems? 1. Little interest or pleasure in doing things: not at all 2. Feeling down, depressed, or hopeless: not at all 3. Trouble falling or staying asleep, or sleeping too much: not at all 4. Feeling tired or having little energy: not at all 5. Poor appetite or overeating: not at all 6. Feeling bad about yourself - or that you are a failure or have let yourself or your family down: not at all 7. Trouble concentrating on things, such as reading the newspaper or watching television: not at all 8. Moving or speaking so slowly that other people could have noticed. Or the opposite - being so fidgety or restless that you have been moving around a lot more than usual: not at all 9. Thoughts that you would be better off or of hurting yourself in some way: not at all Total score: 0 Depression Screening Interpretation: Negative Depression Screening Done: Yes 08427 - PHQ-9 Billing: Yes Source: Developed by Drs. Pedro Akins, Alea Rodriguez, Brett Sanchez and colleagues, with an educational jaelyn from [employer]. Thrive Questionnaire Date Thrive assessed: 08/29/24 I am a: Patient What is your living situation today?: I have a steady place to live Within the past 12 months, did the food you bought not last and you didn't have the money to get more?: Never true Within the past 12 months, did you worry whether your food would run out before you got money to buy more?: Never true Do you have trouble paying for medicines?: No Do you have trouble getting transportation to medical appointments?: No Do you have trouble paying your heating and electricity bill?: No Do you have trouble taking care of your child, family member or friend?: No Do you have trouble with day-to-day activities such as bathing, preparing meals, shopping, managing finances, etc.?: No Are you currently unemployed and looking for a job?: No Are you interested in more education?: No Please select the resources that you would like help with: None Currently or been in a relationship where the following occur: No concerns reported THRIVE Score: 0 AUDIT C Alcohol Use Questionnaire (AUDIT-C) 1. How often do you have a drink containing alcohol?: Monthly or less 2. How many drinks containing alcohol do you have on a typical day when you are drinking?: 1 or 2 3. How often do you have six or more drinks on one occasion?: Never Total Score: 1 DARCY-7 AMB Questionnaire DARCY-7 Date DARCY - 7 assessed: 08/29/24 Feeling nervous, anxious, or on edge: 0 = Not at all Not being able to stop or control worryin = Not at all Worrying too much about different things: 0 = Not at all Trouble relaxin = Not at all Being so restless that it is hard to sit still: 0 = Not at all Becoming easily annoyed or irritable: 0 = Not at all Feeling afraid as if something awful might happen: 0 = Not at all Total DARCY-7 score (0-4 normal; 5-9 mild; 10-14 moderate; 15-21 severe): 0 Source: Developed by Drs. Pedro Akins, Alea Rodriguez, Brett Sanchez and colleagues, with an educational jaelyn from [employer]. DARCY-7 Assessment Billing DARCY-7 Assessment Tool: DARCY-7 Assessment 95141 Review of Systems Const Denies headache(s) Eyes Denies loss of vision ENT Denies vertigo, Denies dizziness, Denies headache(s) and Denies sore throat Card Denies chest pain, Denies leg edema and Denies lightheadedness Resp Denies cough, Denies hemoptysis and Denies wheezing GI Denies abdominal pain, Denies melena, Denies constipation, Denies diarrhea and Denies vomiting Denies dysuria, Denies urinary frequency and Denies urinary urgency Musc Denies arthralgias, Denies joint swelling, Denies numbness and Denies tingling Neuro Denies Abnormal speech present, Denies behavioral changes, Denies vertigo, Denies dizziness, Denies headache(s), Denies loss of vision, Denies memory loss, Denies numbness and Denies tingling Psych Denies anxiety, Denies behavioral changes, Denies depression, Denies memory loss and Denies panic attacks Hilario/Lymph Denies easy bleeding and Denies easy bruising Aller/Immun Denies wheezing Physical exam (Primary Care) Vital Signs: Last Vital Signs Temp 97.3 F 08/29/24 15:34 Pulse 78 08/29/24 15:34 BP 126/84 08/29/24 15:34 Pulse Ox 96 08/29/24 15:34 Oxygen Delivery Method Room Air 08/29/24 15:34 BMI result Body Mass Index 32.2 Tobacco/Smoking Status: Tobacco use Status Tobacco use date assessed 09/29/23 08/29/24 15:34 Patient Tobacco Use Status Never used Tobacco 08/29/24 15:34 e-Cigarette/Vaping Use Never Used 08/29/24 15:34 PHQ-9: PHQ-9 Score PHQ-9: Total score 0 08/29/24 15:50 Depression Screening Interpretation: Negative Thrive Assessment: Date of Thrive Assessment Date Thrive assessed 08/29/24 08/29/24 15:43 Currently or been in a relationship where the following occur: No concerns reported Const General: healthy appearing, no acute distress, alert and awake Nutritional Appearance: well nourished Orientation/consciousness: oriented to person, oriented to place and oriented to time HENMT Ears: TM's normal bilaterally General nose exam: Normal nasal mucous membranes and turbinates present Eyes Conjunctivae: conjunctivae normal Sclerae: sclerae normal Pupils: Equal, round and reactive pupils present Neck Neck: Yes no lymphadenopathy and Yes no JVD Thyroid: Thyroid normal Carotids: no bruits Resp Effort & Inspection: normal respiratory effort and not tachypneic Auscultation: no crackles, no rales, no rhonchi and no wheezes Cardio Rate: regular rate Rhythm: regular rhythm Heart sounds: no murmurs and normal S1 and S2 GI Palpation (GI): Soft to palpation, nontender, no hepatomegaly and no splenomegaly Auscultation: normal bowel sounds Skin General skin exam: no rashes or lesions noted and dry skin Neuro General: oriented to person, oriented to place and oriented to time Cranial nerves: Yes Equal, round and reactive pupils present Speech: No Abnormal speech present Gait exam (Neuro): Normal gait present Motor exam (neuro): no tremor noted Extrem Right upper extremity: full ROM Left upper extremity: full ROM Right lower extremity: full ROM; no edema Left lower extremity: full ROM; no edema Psych Mental Status: mental status grossly normal Speech and movement: Normal speech and movement present Affect: normal affect Attitude: cooperative Thought process: Normal thought process present Results AMB Hemoglobin A1c AMB Hemoglobin A1c 5.6 % Last Edit by KIARA Carmen on 08/29/24 16:02 Coding Level of Care Code Est Pt Level 4 (79115) Diagnoses Type 2 diabetes mellitus with diabetic polyneuropathy, with long-term current use of insulin E11.42; Z79.4 Diabetes mellitus usp insulin use: with terminal block assembler use Bipolar disorder, current episode mixed, mild F31.61 Active/Remission status: currently active Current bipolar episode type: mixed Current episode severity: mild High cholesterol E78.00 Essential hypertension I10 Hypertension type: essential hypertension Additional Codes DARCY-7 Assessment Billing - DARCY-7 Assessment Tool: DARCY-7 Assessment 20210 ([id number]) PHQ-9 - 70985 - PHQ-9 Billing: Yes ([id number]) Assessment & Plan Assessment & Plan (1) Type 2 diabetes mellitus with diabetic polyneuropathy: Code(s): E11.42 - Type 2 diabetes mellitus with diabetic polyneuropathy Category: Medical Qualifiers: Diabetes mellitus terminal block assembler insulin use: with terminal block assembler use Qualified Code(s): E11.42 - Type 2 diabetes mellitus with diabetic polyneuropathy; Z79.4 - intermediate (current) use of insulin Plan: Patient's type 2 diabetes well controlled with current insulin regime. Today's A1c of 5.7. He does report some hyperglycemic episodes after lunchtime. He has not been using preprandial insulin before large lunch meals. Advised to start his Humalog 6 units before lunchtime Goal A1c is to be below 7.0 (2) Bipolar disorder: Code(s): F31.9 - Bipolar disorder, unspecified Category: Medical Qualifiers: Active/Remission status: currently active Current bipolar episode type: mixed Current episode severity: mild Qualified Code(s): F31.61 - Bipolar disorder, current episode mixed, mild Plan: Continues on Abilify with good effect on his mood. (3) High cholesterol: Code(s): E78.00 - Pure hypercholesterolemia, unspecified Category: Medical Plan: Patient's most recent lipid panel showing excellent control of his total cholesterol LDL. He will continue his current dose of statin therapy with goal LDL to remain below 100 (4) Hypertension: Code(s): I10 - Essential (primary) hypertension Category: Medical Qualifiers: Hypertension type: essential hypertension Qualified Code(s): I10 - Essential (primary) hypertension Plan: Patient's blood pressure acceptable today in office. Will continue current dose of antihypertensive medication with goal blood pressure to remain below 140/90 Orders: Orders AMB Hemoglobin A1c Today E11.42 - Type 2 diabetes mellitus with diabetic polyneuropathy, Z79.4 - lobsterman (current) use of insulin TSH reflex Free T4 6 Months R79.89 - Other specified abnormal findings of blood chemistry Comprehensive [place]. Panel Fast 6 Months E11.42 - Type 2 diabetes mellitus with diabetic polyneuropathy, Z79.4 - intermediate (current) use of insulin Microalbumin, Random (w Creat) 6 Months I10 - Essential (primary) hypertension Lipid Panel 6 Months E78.00 - Pure hypercholesterolemia, unspecified Complete Blood Count no Diff 6 Months E11.42 - Type 2 diabetes mellitus with diabetic polyneuropathy, Z79.4 - intermediate (current) use of insulin Medications: Refilled insulin glargine U-300 conc (Toujeo Max U-300 SoloStar) 50 units (0.1667 mL) subcut BID 54 mL 3RF E11.42 - Type 2 diabetes mellitus with diabetic polyneuropathy, Z79.4 - intermediate (current) use of insulin semaglutide (Ozempic) 1 mg (0.75 mL) subcut QWEEK 4 weeks 3 mL 6RF E11.42 - Type 2 diabetes mellitus with diabetic polyneuropathy pantoprazole 40 mg PO DAILY 90 tabs 2RF insulin aspart U-100 (Novolog FlexPen U-100 Insulin aspart) 6 units (0.06 mL) subcut TID 30 days 15 mL 1RF E11.65 - Type 2 diabetes mellitus with hyperglycemia, Z79.4 - intermediate (current) use of insulin nystatin 1 appl topical DAILY 15 days 30 grams 3RF B35.3 - Tinea pedis aripiprazole 2 mg PO DAILY 90 tabs 2RF F32.9 - Major depressive disorder, single episode, unspecified benazepril 20 mg PO DAILY 90 tabs 2RF I10 - Essential (primary) hypertension budesonide-formoterol 160-4.5 mcg/actuation 2 puffs PO BID 30 days 10.2 grams 3RF J45.909 - Unspecified asthma, uncomplicated Patient Instructions: Goal: Blood pressure to remain below 140/90, LDL to be below 100, A1c to remain below 6.5 :Barriers: Adherence to physical activity and healthy eating habits
== END 2024-08-29 16:20 | disposition home or self-care (01) ==
PROVIDERS: PCP Physician Assistant; Visit Provider Physician Assistant
DX: E11.42 Type 2 diabetes mellitus with diabetic polyneuropathy (principal); Z79.4 Long term (current) use of insulin; F31.61 Bipolar disorder, current episode mixed, mild; E78.00 Pure hypercholesterolemia, unspecified; I10 Essential (primary) hypertension

== ENCOUNTER 2024-09-14 09:00 | Outpatient (REF) | payer MEDICARE, MEDICAID, SELFPAY ==
--- NOTE | ~2024-09-14 | XR_ITS ---
EXAMINATION: XR KNEE, LEFT CLINICAL INFORMATION: S89.92XA - Unspecified injury of left lower leg, initial encounter COMPARISON: 08/17/2023 TECHNIQUE: Four views of the left knee. FINDINGS: No definite fracture, dislocation, or suspicious bone lesion. There is [id number] appearance of the medial compartment, with compensatory widening of the lateral compartment and mild varus angulation of the knee. Moderate arthritis present in the patellofemoral compartment. Mild spurring of the medial tibial spine. There is a probable small to moderate size joint effusion. Mild prepatellar soft tissue swelling. There are vascular calcifications. XR/XR knee LT 4V IMPRESSION: 1. No acute bony abnormalities. 2. Tricompartmental osteoarthrosis, most significant medial compartment where there is [id number] appearance. 3. Small to moderate size joint effusion suspected. Mild prepatellar soft tissue swelling. Electronically signed by: Luis Berrios MD 09/14/2024 01:46 PM MARISSA
== END 2024-09-14 09:01 | disposition home or self-care (01) ==
LOC: HO.HMGCX 09:00
PROVIDERS: PCP Physician Assistant; Visit Provider Physician Assistant
DX: S89.92XA Unspecified injury of left lower leg, initial encounter (principal)
CPT/HCPCS: 73564

== ENCOUNTER → 2024-09-14 09:04 | Outpatient (BNV) | payer MEDICARE, MEDICAID, SELFPAY | PROVIDERS: PCP Physician Assistant; Visit Provider Radiology Diagnostic Radiology | DX: M17.12 Unilateral primary osteoarthritis, left knee (principal) | CPT/HCPCS: 73564 ==

== ENCOUNTER 2024-12-22 08:24 | Outpatient (AMB) | payer MEDICARE, MEDICAID, SELFPAY ==
[2024-12-22 08:34] VITALS: BMI 14.5
--- NOTE | 2024-12-22 08:34 | MHC.OFFVIS ---
Vital Signs 12/22/24 08:34 Height 5 ft 11 in Weight 104 lb BMI 14.5 Intake Visit Reasons: Inj- B/L knee cortisone inj Intake Note: Clinton is a 69 year old male who presents today for repeat Bilateral Knee Cortisone Injections - He was last seen on 07/28/24 where he received Bilateral Knee Durolane injections. Patient has expressed in the past that he is uninterested in surgical intervention. Allergies Penicillins Allergy (Verified 12/22/24 08:42) hives magnesium Adverse Reaction (Intermediate, Verified 12/22/24 08:42) hyperglycemia HPI HPI Inj- B/L knee cortisone inj: Details: Clinton is a 69 year old male who presents today for repeat Bilateral Knee Cortisone Injections - He was last seen on 07/28/24 where he received Bilateral Knee Durolane injections. Patient has expressed in the past that he is uninterested in surgical intervention but he now states that as the pain worsens he is willing to consider it. He states he walks with a limp especially in his left leg. His ankles and back he walks. He has an extremely difficult time walking downhill or downstairs. [facility] Medical History Tinea pedis Obesity due to excess calories Poor circulation of extremity Type 2 diabetes mellitus with diabetic polyneuropathy Hypertension High cholesterol Diabetes Surgical History Hx of endoscopy Hx of colonoscopy Hx of hand surgery Hx of vasectomy Family History Mother Multiple sclerosis Father No problems noted. Social History Housing: House Alcohol intake: former Patient Tobacco Use Status: Never used Tobacco e-Cigarette/Vaping Use: Never Used Second Hand Smoke Exposure: No service: No Current occupational status: retired Cognitive needs: No Hearing needs: No Vision needs: Yes Physical Exam Vital Signs: BMI result Body Mass Index 14.5 Const General: no acute distress, alert and awake Orientation/consciousness: patient oriented x3 HEENT Head: Yes normocephalic and Yes atraumatic Eyes EOM: EOMs intact bilaterally Resp Effort & Inspection: normal respiratory effort and able to speak in complete sentences Cardio Jugular venous distension: no JVD Skin General skin exam: turgor normal Rashes: no rashes Neuro General: patient oriented x3 Extrem Other: varus bilateral knees with varus thrust bilaterally left greater than right Moderate to large right knee effusion Large medial joint line ganglion mild ttp medial joint line bilaterally Psych Appearance: grossly normal Affect: normal affect Attitude: cooperative Office Procedures Joint Inj/Aspir; Non-Pain Clin Joint Injection/Drain Details: Injected 1 mL of Decadron and 3 mL 1% lidocaine and 3 mL of 0.25% Marcaine. Site was prepped using aseptic technique. Patient tolerated the procedure well. Shoulders, Hips, Knees, Knee Large Joint Injection : Bilateral Knee Coding Procedure code (CPT) selection complete Assessment & Plan Assessment & Plan (1) Knee osteoarthritis: Code(s): M17.9 - Osteoarthritis of knee, unspecified Category: Medical Plan: Bilateral knee OA. Injected bilateral knees He is scheduled for gel in 3 months to think is reasonable. He is more bothered by his pain and inability to ambulate extended distances today than in the past and as this worsens he is considering arthroplasty. We had a discussion regarding surgery and regarding the benefits as well as some of the risks and some of the details of the surgical intervention. I will see him back in 3 months. Coding Level of Care Code Est Pt Level 3 (44080) Diagnoses Knee osteoarthritis M17.9 CPT Codes Shoulders, Hips, Knees, - Knee Large Joint Injection : Bilateral Knee ([id number])
--- OUTSIDE RECORDS SUMMARY | 2024-12-22 08:39 | XMS_ITS | Clinical Summary ---
Author Organization [address] [facility] Address [address] [place] [address] Phone Care Team Providers Care Data Recovery Planner Name Role Phone Richie Norton Primary Care Provider [phone] Surgical History Surgery Date Site/Laterality Comments VASECTOMY PROCEDURE: CA VASECTOMY UNI/BI SPX W/POSTOP SEMEN EXAMS Medical History Medical History Date Comments Essential hypertension, benign 07/07/2006 D X:Essential hypertension, benign Family History Relation Name Status Comments Brother Alive health unknown Father ? Mother Alive health unknown Social History Tobacco Use Types Packs/Day Years Used Date Smoking Tobacco: Never Smokeless Tobacco: Never Alcohol Use Standard Drinks/Week Comments Yes 0 (1 standard drink = 0.6 oz pur e alcohol) Sex and Gender Information Value Date Recorded Sex Assigned at Not on file Legal Sex Male 5:46 AM EST Gender Identity Not on file Sexual Orientation Not on file Obstetrics History Plan of Treatment Upcoming Encounters Date Type Department Care Team ([facility] Contact Info) Description 01/02/2025 1:45 PM EDT Consult Orthopedic Surgery [place] [id number] [phone] Mamadou Henry, DPM [address] [id number] Health Maintenance Due Date Last Done Comments Diabetes: Annual GFR (Glomer ular Filtration Rate) 1954 Diabetes: Annual Foot Exam 1964 Diabetes: Annual Retina Eye Exam 1964 DTaP,Tdap,and Td Vaccines (1 - Tdap) 1973 Pneumococcal Vaccine: 50+ Ye ars (1 of 2 - PCV) 1973 Zoster Vaccines (1 of 2) 2004 RSV Immunization Adult Patie nts (1 - Risk 60-74 years 1-dose series) 2014 COVID-19 Vaccine (2023-2 5 season) 2024 Abdominal Aortic Aneurysm (A AA) Screen 11/29/2024 Cholesterol Screening (Lipid Panel) 11/29/2024 Colorectal Cancer Screening: Colonoscopy 11/29/2024 Depression Screening 11/29/2024 Diabetes: Annual Urine Albumin-Creatinine Ratio (uACR) 11/29/2024 Diabetes: Blood Sugar Contro l Test (HGBA1C) 11/29/2024 Falls Risk Assessment 11/29/2024 Hepatitis C Screening 11/29/2024 Hypertension/CHF/CAD Annual BMP Blood Test 11/29/2024 Medicare Annual Wellness Visit 11/29/2024 Social Influencers of Health Screening 11/29/2024 Influenza Vaccine (Season Ended) 2025 HIB Vaccines Aged Out No longer eligi ble based on patient's age to complete this topic HPV Vaccines Aged Out No longer eligi ble based on patient's age to complete this topic Hepatitis A Vaccines Aged Out No long er eligible based on patient's age to complete this topic Hepatitis B Vaccines Aged Out No long er eligible based on patient's age to complete this topic IPV Vaccines Aged Out No longer eligi ble based on patient's age to complete this topic MMR Vaccines Aged Out No longer eligi ble based on patient's age to complete this topic Meningococcal ACWY Vaccine Aged Out N o longer eligible based on patient's age to complete this topic Meningococcal B Vaccine Aged Out No l onger eligible based on patient's age to complete this topic RSV Immunization Patients Un taran 20 months Aged Out No longer eligible b ased on patient's age to complete this topic Varicella Vaccines Aged Out No longer eligible based on patient's age to complete this topic Insurance BLUE CROSS - [place] MEDICARE AD[place]ANTAGE [place] - [place] Care Teams Data Recovery Planner Relationship Specialty Start Date End Date Richie Norton PA PCP - General Physician Side Panel Padder 11/29/24
== END 2024-12-22 09:01 | disposition home or self-care (01) ==
LOC: HO.HOS 08:24
PROVIDERS: PCP Physician Assistant; Visit Provider Orthopaedic Surgery
DX: M17.0 Bilateral primary osteoarthritis of knee (principal)
CPT/HCPCS: 20610; 99213

== ENCOUNTER → 2024-12-22 08:24 | Outpatient (BNVA) | payer MEDICARE, MEDICAID, SELFPAY | PROVIDERS: PCP Physician Assistant; Visit Provider Orthopaedic Surgery | DX: M17.0 Bilateral primary osteoarthritis of knee (principal) | CPT/HCPCS: 20610; 99212; J0665; J1100; J2003 ==

== ENCOUNTER 2025-03-05 16:39 | Emergency (ER) | payer MEDICARE, MEDICAID, SELFPAY ==
[2025-03-05 16:50] VITALS: BP 120/68; BP 140/72; PULSE 83; PULSE 86; RESP 15; TEMP 36.3; O2SAT 95; O2SAT 98; BMI 32.7
--- NOTE | 2025-03-05 17:02 | ED_ITS ---
HPI - General Adult General Chief complaint: Skin/Abscess/Foreign Body Stated complaint: sliced little finger on mandolin 20 mins ago Time Seen by Provider: 03/05/25 17:00 Source: patient and EMS Limitations: no limitations History of Present Illness HPI narrative: 69-year-old male presents for evaluation of the laceration to his right hand, 5th digit. Patient states he was using a mandolin slicer when he accidentally sliced his finger. The incident occurred just prior to arrival. He applied a bandage as well as direct pressure. Unknown last tetanus. He is right-hand dominant. Patient otherwise has no physical complaints. Bleeding controlled at time of arrival. Related Data Previous Rx's ?Medication ?Instructions ?Recorded blood-glucose meter (OneTouch #1 ea 10/30/20 Verio Meter) ezetimibe 10 mg tablet 10 mg PO DAILY #90 tabs 12/08 Held on 10/27/22. Instructions: Doctor's Order blood-glucose sensor (Dexcom G6 #3 ea 02/03/23 Sensor device) blood-glucose transmitter (Dexcom #1 ea 02/03/23 G6 Transmitter device) blood-glucose,web press jogger,cont #1 ea 02/03/23 (Dexcom G6 Director Of Religious Life) acetaminophen 500 mg tablet 500 mg PO Q6H PRN fever or pain 09/29/23 (Tylenol Extra Strength) #120 tabs fluticasone propionate 50 1 spray intranasal Q12H 30 d ays 09/29/23 mcg/actuation nasal #16 grams spray,suspension (Flonase Allergy Relief) nystatin 100,000 unit/gram topical 1 appl topical KATELYN Y 15 days #30 09/29/23 ointment grams canagliflozin 300 mg tablet 300 mg PO DAILY #90 tabs 0 04/11/24 (Invokana) blood sugar diagnostic (OneTouch #100 ea 05/16/24 Verio test strips) rosuvastatin 5 mg tablet 5 mg PO DAILY 90 days #90 ta bs 06/22/24 venlafaxine 150 mg 150 mg PO DAILY #90 caps capsule,extended release 24 hr aripiprazole 2 mg tablet 2 mg PO DAILY #90 tabs 08/29 benazepril 20 mg tablet 20 mg PO DAILY #90 tabs 08/20 nystatin 100,000 unit/gram topical 1 appl topical KATELYN Y 15 days #30 08/29/24 cream grams pantoprazole 40 mg tablet,delayed 40 mg PO DAILY #90 t abs 08/29/24 release semaglutide 1 mg/dose (4 mg/3 mL) 1 mg (0.75 mL) subcu t QWEEK 4 08/29/24 subcutaneous pen injector (Ozempic) weeks #3 mL pramipexole 1 mg tablet 1 mg PO BEDTIME 30 days #30 tabs 10/12/24 insulin glargine U-300 conc 300 50 unit (0.1667 mL) martines bcut BID #54 10/24/24 unit/mL (3 mL) subcutaneous pen mL (Toujeo Max U-300 SoloStar) prednisone 5 mg tablet 5 mg PO DAILY 30 days #30 ta bs 11/21/24 celecoxib 200 mg capsule (Celebrex) 200 mg PO BID 90 d ays #180 caps 12/07/24 pen needle, diabetic 32 gauge x #150 ea 12/10/24 lancets 33 gauge (OneTouch Delica #100 ea 12/14/24 Plus Lancet) insulin aspart U-100 100 unit/mL 6 unit (0.06 mL) subc ut TID 30 12/26/24 (3 mL) subcutaneous pen ( #15 mL FlexPen U-100 Insulin aspart) budesonide-formoterol HFA 160 2 puff PO BID 30 days #1 0.2 grams 01/03/25 mcg-4.5 mcg/actuation aerosol inhaler simethicone 80 mg chewable tablet 80 mg PO BID-QID PRN abdominal 01/18/25 (Gas Relief (simethicone)) distention 30 days #120 tab s potassium chloride 10 mEq 10 meq PO DAILY 30 days #30 tabs 01/23/25 tablet,extended release (Klor-Con) Allergies Allergy/AdvReac Type Severity Reaction Status Date / Time Penicillins Allergy hives Verified 03/05/25 16:56 magnesium AdvReac Intermediate hyperglycem Verified 03/05/25 16:56 ia Review of Systems Review of Systems: Yes all other systems are reviewed and are negative PMFSH Past Medical History Medical History Tinea pedis Obesity due to excess calories Poor circulation of extremity Type 2 diabetes mellitus with diabetic polyneuropathy Hypertension High cholesterol Diabetes Surgical History Hx of endoscopy Hx of colonoscopy Hx of hand surgery Hx of vasectomy Family History Family History Mother Multiple sclerosis Father No problems noted. Social History Social History Housing: House Alcohol intake: former Patient Tobacco Use Status: Never used Tobacco e-Cigarette/Vaping Use: Never Used Second Hand Smoke Exposure: No Advance Directives: No Advance Directives Information Provided: No Do you have a plan to hurt others: No Plan service: No Current occupational status: retired Cognitive needs: No Hearing needs: No Vision needs: Yes Physical Exam ED Vital Signs: Vital Signs - 24 hr 03/05/25 16:50 03/05/25 17:23 Temperature 97.4 F 97.4 F Pulse Rate 83 83 Respiratory Rate 15 15 Blood Pressure 140/72 H 140/72 H Pulse Oximetry 95 95 Oxygen Delivery Method Room Air Room Air BMI result Body Mass Index 32.7 Const General: no acute distress, alert and awake Extrem Other: The right 5th digit is bandaged. Approximately 0.5 cm avulsion to the distal fat pad of the right hand, 5th digit, medial aspect. No active bleeding at this time. Medications Administered Discontinued Medications Generic Name Dose Route Start Last Admin Trade Name Freq PRN Reason Stop Dose Admin Bacitracin 1 appl 03/05/25 17:03 03/05/25 17:05 Bacitracin Oint 0.9 Gm Packet TOPICAL 03/05/25 17:04 1 appl ONCE ONE Administration Protocol Medical Decision Making Medical Decision Making MDM Narrative: 69-year-old male with avulsion of the soft tissue of his right 5th digit. He is adamantly refusing tetanus injection. Bleeding is controlled at this time. The area has been cleansed, antibiotic ointment has been applied, nonstick followed by gauze and tube gauze. Differential Diagnosis Differential Diagnoses: The differential diagnosis associated with the presentation includes Fracture Skin avulsion Laceration Contusion Discharge Plan Discharge Clinical Impression: Avulsion, skin Patient Disposition: Home, Self-Care Instructions: Acute Wounds (ED) Additional Instructions: Keep bandage on for the next 24 hours. You may then remove and gently clean around the area. You may reapply antibiotic ointment such as bacitracin or Neosporin. Bandage. Watch for redness, severe pain, swelling, or any other concern return immediately to the emergency department. Follow-up with your primary care provider. Call this week to schedule a follow- up appointment. Return to the emergency department if you have any worsening of symptoms, or any concerns. Get well soon! Prescriptions: No Action (DME) blood-glucose meter [OneTouch Verio Meter] Misc See Rx Instructions .ROUTE .MEDSUPPLY Qty: 1 0RF Rx Instructions: To test blood glucose 4 times a day ezetimibe 10 mg tablet 10 mg PO DAILY Qty: 90 2RF (DME) Dexcom G6 Sensor Device See Rx Instructions .Route Qty: 3 3RF Rx Instructions: As directed (DME) Dexcom G6 Director Of Religious Life Misc See Rx Instructions .Route Qty: 1 3RF Rx Instructions: As directed (DME) Dexcom G6 Transmitter Device See Rx Instructions .Route Qty: 1 3RF Rx Instructions: As directed Invokana 300 mg tablet 300 mg PO DAILY Qty: 90 2RF (DME) OneTouch Verio test strips Strip See Rx Instructions .ROUTE .MEDSUPPLY Qty: 100 11RF Rx Instructions: To test blood glucose 4 times a day rosuvastatin 5 mg tablet 5 mg PO DAILY 90 Days Qty: 90 2RF venlafaxine 150 mg capsule,extended release 24hr 150 mg PO DAILY Qty: 90 2RF pramipexole 1 mg tablet 1 mg PO BEDTIME 30 Days Qty: 30 6RF Toujeo Max U-300 SoloStar 300 unit/mL (3 mL) insulin pen 50 unit subcut BID Qty: 54 3RF prednisone 5 mg tablet 5 mg PO DAILY 30 Days Qty: 30 3RF celecoxib [Celebrex] 200 mg capsule 200 mg PO BID 90 Days Qty: 180 2RF (DME) pen needle, diabetic 32 gauge x /32 needle See Rx Instructions .ROUTE .MEDSUPPLY Qty: 150 11RF Rx Instructions: 4 times a day (DME) lancets [OneTouch Delica Plus Lancet] 33 gauge misc See Rx Instructions .ROUTE .MEDSUPPLY Qty: 100 11RF Rx Instructions: To test blood glucose 4 times a day insulin aspart U-100 [Novolog FlexPen U-100 Insulin] 100 unit/mL (3 mL) insulin pen 6 unit subcut TID 30 Days Qty: 15 1RF budesonide-formoterol 160-4.5 mcg/actuation HFA aerosol inhaler 2 puff PO BID 30 Days Qty: 10.2 3RF simethicone [Gas Relief (simethicone)] 80 mg tablet,chewable 80 mg PO BID-QID PRN (Reason: abdominal distention) 30 Days Qty: 120 3RF potassium chloride [Klor-Con 10] 10 mEq tablet extended release 10 meq PO DAILY 30 Days Qty: 30 2RF acetaminophen [Tylenol Extra Strength] 500 mg tablet 500 mg PO Q6H PRN (Reason: fever or pain) Qty: 120 2RF fluticasone propionate [Flonase Allergy Relief] 50 mcg/actuation spray,suspension 1 spray intranasal Q12H 30 Days Qty: 16 3RF Rx Instructions: administer into each nostril nystatin 100,000 unit/gram ointment 1 appl topical DAILY 15 Days Qty: 30 3RF Ozempic 1 mg/dose (4 mg/3 mL) pen injector 1 mg subcut QWEEK 28 Days Qty: 3 6RF nystatin 100,000 unit/gram cream 1 appl topical DAILY 15 Days Qty: 30 3RF pantoprazole 40 mg tablet,delayed release (DR/EC) 40 mg PO DAILY Qty: 90 2RF aripiprazole 2 mg tablet 2 mg PO DAILY Qty: 90 2RF benazepril 20 mg tablet 20 mg PO DAILY Qty: 90 2RF Interventions: ED Discharge Assessment Last Done: 03/05/25 17:23 Discharge Date/Time: 03/05/25 17:23 Print Language: Afghan
[2025-03-05 17:23] VITALS: BP 140/72; PULSE 83; RESP 15; TEMP 36.3; O2SAT 95
--- NOTE | 2025-03-05 17:23 | PC.NURSE ---
finger wrapped w/ bacitracin by provider. pt refused tetanus shot. d/c'd from [facility].
== END 2025-03-05 17:23 | disposition home or self-care (01) ==
PROVIDERS: Emergency Provider Emergency Medicine; PCP Physician Assistant
DX: S61.206A Unspecified open wound of right little finger without damage to nail, initial encounter (principal); W26.8XXA Contact with other sharp object(s), not elsewhere classified, initial encounter; Y93.G1 Activity, food preparation and clean up; Y92.9 Unspecified place or not applicable; Y99.9 Unspecified external cause status
CPT/HCPCS: 99282

== ENCOUNTER 2025-03-14 06:31 | Outpatient (REF) | payer MEDICARE, MEDICAID, SELFPAY ==
--- OUTSIDE RECORDS SUMMARY | 2025-03-14 06:35 | XMS_ITS | Clinical Summary ---
Author Organization 175 [facility] Address [address] [place] [address] Phone Care Team Providers Care Supervisor [employer] Name Role Phone Richie Norton Primary Care Provider Encounters Date Type Department Care Team Description 01/02/2025 1:45 PM EDT Consult Orthopedic Surgery [facility] [address] [address] Mamadou Henry, DPM Dermatophytosis of nail (Primary Dx); Type 2 diabetes mellitus with diabetic polyneuropathy ([facility] V24, [facility] V28); detention (current) use of insulin ([facility] V24, [facility] V28); Pain in toe of right foot; Pain in toe of left foot; Diabetic mononeuropathy simplex ([facility] V24, [facility] V28); Type II diabetes mellitus with peripheral circulatory disorder ([facility] V24, [facility] V28) from Last 3 Months Surgical History Surgery Date Site/Laterality Comments VASECTOMY PROCEDURE: CO VASECTOMY UNI/BI SPX W/POSTOP SEMEN EXAMS Medical [...] Upcoming Encounters Date Type Department Care Team ([facility] st Contact Info) Description 04/18/2025 9:15 AM EDT Office Visit Orthopedic Surgery - [place] [address] [place] [address] [place] [phone] Mamadou Henry DPCharan [address] [place] [address] Health Maintenance Due Date Last Done Comments Diabetes: Annual GFR (Glomerular Filtration Rate) 1954 Diabetes: Annual Foot Exam 1964 Diabetes: Annual Retina Eye Exam 1964 RSV Immunization Adult Patients (1 - Risk 60-74 years 1-dose series) 2014 Zoster Vaccines (2 of 3) 09/27/2015 08/02/2015 Pneumococcal Vaccine: 50+ Years (2 of 2 - PCV) 09/06/2021 09/06/2020 COVID-19 Vaccine (2023-2 5 season) 2024 08/26/2021, 02/22/2021, 01/31/2021 Depression Screening 07/20/2024 Abdominal Aortic Aneurysm (AAA) Screen 11/29/2024 Cholesterol Screening (Lipid Panel) 11/29/2024 Colorectal Cancer Screening: Colonoscopy 11/29/2024 Diabetes: Annual Urine Albumin-Creatinine Ratio (uACR) 11/29/2024 Diabetes: Blood Sugar Contro l Test (HGBA1C) 11/29/2024 Falls Risk Assessment 11/29/2024 Hepatitis C Screening 11/29/2024 Hypertension/CHF/CAD Annual BMP Blood Test 11/29/2024 Medicare Annual Wellness Visit 11/29/2024 Social Influencers of Health Screening 11/29/2024 Influenza Vaccine (#1) 2025 3, 09/06/2020 DTaP,Tdap,and Td Vaccines (2 - Td or Tdap) 03/26/2031 03/26/2021 HIB Vaccines Aged Out No longer eligi [...] to complete this topic RSV Immunization Patients Under 20 months Aged Out No longer eligible b ased on patient's age to complete this topic Varicella Vaccines Aged Out No longer eligible based on patient's age to complete this topic Insurance BLUE CROSS - [place] MEDICARE ADVANTAGE [place]ICA[place] - [place] Care Teams Supervisor [employer] Relationship Specialty Start Date End Date Richei Norton PA [address] [place] [address] PCP - General Physician Custodial Laborer 11/29/24
[2025-03-14 10:13] LABS: Hematocrit 47.8 % (42.0-52.0); Hemoglobin 16.1 g/dl (14.0-18.0); Mean Corpuscular HGB Conc 33.7 g/dl (31.0-36.0); Mean Corpuscular Hemoglobin 30.1 pg (27.0-33.0); Mean Corpuscular Volume 89.5 fL (80.0-98.0); NRBC Abs Auto 0.000 X10*3/uL (0.0-0.012); NRBC Pct Auto 0.0 /100WBC (0.0-0.2); Platelet Count 152 X10*3/uL (160-400); Red Blood Count 5.34 X10*6/uL (4.60-5.80); White Blood Count 6.6 X10*3/uL (4.8-10.8)
[2025-03-14 10:40] LABS: Alanine Aminotransferase 37 U/L (0-40); Albumin Level 4.3 g/dL (3.5-5.0); Alkaline Phosphatase 69 U/L (39-117); Anion Gap 14 (12-20); Aspartate Amino Transferase 32 U/L (5-37); Blood Urea Nitrogen 20 mg/dL (9-16); Calcium 8.6 mg/dL (8.4-10.2); Carbon Dioxide 27 mmol/L (22-29); Chloride 106 mmol/L (96-108); Cholesterol 156 mg/dL (<200); Estimated Glomerular Filt Rate > 60; HDL Cholesterol 38 mg/dL (>40); Potassium 3.8 mmol/L (3.3-5.1); Sodium 143 mmol/L (135-145); Total Protein 7.0 g/dL (6.5-8.0); Triglycerides 126 mg/dL (<150)
[2025-03-14 11:36] LABS: Microalbum/Creatinine Ratio Ur 7.8 ug/mg cr (<30)
[2025-03-14 11:56] LABS: Free T4 (Free Thyroxine) 0.69 ng/dL (0.71-1.85)
== END 2025-03-14 06:32 | disposition home or self-care (01) ==
LOC: HO.HMGCLDS 06:31
PROVIDERS: PCP Physician Assistant; Visit Provider Physician Assistant
DX: I10 Essential (primary) hypertension (principal); E11.42 Type 2 diabetes mellitus with diabetic polyneuropathy; Z79.4 Long term (current) use of insulin; E78.00 Pure hypercholesterolemia, unspecified; R79.89 Other specified abnormal findings of blood chemistry
CPT/HCPCS: 36415; 80053; 80061; 82043; 82570; 84439; 84443; 85027

== ENCOUNTER 2025-03-16 07:43 | Outpatient (AMB) | payer MEDICARE, MEDICAID, SELFPAY ==
--- OUTSIDE RECORDS SUMMARY | 2025-03-16 07:47 | XMS_ITS | Clinical Summary ---
Author Organization 175 [facility] Address [address] [place] [address] Phone Care Team Providers Care Bottler Name Role Phone Richie Norton Primary Care Provider [phone] Encounters Date Type Department Care Team Description 01/02/2025 1:45 PM EDT Consult Orthopedic Surgery [facility] [address] [phone] Mamadou Henry, DPM Dermatophytosis of nail (Primary Dx); Type 2 diabetes mellitus with diabetic polyneuropathy ([facility] V24, [facility] V28); longterm (current) use of insulin ([facility] V24, [facility] V28); Pain in toe of right foot; Pain in toe of left foot; Diabetic mononeuropathy simplex ([facility] V24, [facility] V28); Type II diabetes mellitus with peripheral circulatory disorder ([facility] V24, [facility] V28) from Last 3 Months Surgical History Surgery Date Site/Laterality Comments VASECTOMY PROCEDURE: ID VASECTOMY UNI/BI SPX W/POSTOP SEMEN EXAMS Medical [...] Upcoming Encounters Date Type Department Care Team ([facility] st Contact Info) Description 04/18/2025 9:15 AM EDT Office Visit Orthopedic Surgery - [place] [address] [place] [address] [place] [phone] Mamadou Henry DPCharan [address] [place] [address] Health Maintenance Due Date Last Done Comments [...] MEDICARE ADVANTAGE [place]ICAID - [place] Care Teams Bottler Relationship Specialty Start Date End Date Richie Norton PA [address] [place] [address] PCP - General Physician Donor Services Specialist 11/29/24
--- NOTE | 2025-03-16 07:48 | MHC.PC.OV ---
Vital Signs 03/16/25 07:49 Height 5 ft 11 in Weight 233 lb BMI 32.5 BP 128/70 Blood Pressure Location Lt brachial Position Sitting Pulse 78 Pulse Source Pulse Oximeter Pulse Oximetry (%) 96 Oxygen Delivery Method Room Air Intake Visit Reasons: PE R/S from 03/02 Allergies Penicillins Allergy (Verified 03/16/25 08:29) hives magnesium Adverse Reaction (Intermediate, Verified 03/16/25 08:29) hyperglycemia Medication List - Last Reconciled 03/16/25 by Richie Norton PA-C acetaminophen (Tylenol Extra Strength) 500 mg PO Q6H PRN aripiprazole 2 mg PO DAILY benazepril 20 mg PO DAILY blood sugar diagnostic (BioSeek Verio test strips) To test blood glucose 4 times a day blood-glucose meter (PeerMeuch Verio Meter) To test blood glucose 4 times a day blood-glucose sensor (WRG Creative Communication G6 Sensor device) As directed blood-glucose transmitter (WRG Creative Communication G6 Transmitter device) As directed blood-glucose,library historian,cont (Dexcom G6 Naprapath) As directed budesonide-formoterol 160-4.5 mcg/actuation 2 puffs PO BID 30 days canagliflozin (Invokana) 300 mg PO DAILY celecoxib (Celebrex) 200 mg PO BID 90 days ezetimibe 10 mg PO DAILY Held on 10/27/22. Instructions: Doctor's Order fluticasone propionate 50 mcg/actuation (Flonase Allergy Relief) 1 spray intranasal Q12H 30 days insulin aspart U-100 (Novolog FlexPen U-100 Insulin aspart) 6 units (0.06 mL) subcut TID 30 days insulin glargine U-300 conc (Toujeo Max U-300 SoloStar) 50 units (0.1667 mL) subcut BID lancets (PeerMeuch Delica Plus Lancet) To test blood glucose 4 times a day pantoprazole 40 mg PO DAILY pen needle, diabetic 4 times a day potassium chloride ER (Klor-Con) 10 mEq PO DAILY 30 days pramipexole 1 mg PO BEDTIME 30 days prednisone 5 mg PO DAILY 30 days rosuvastatin 5 mg PO DAILY 90 days semaglutide (Ozempic) 1 mg (0.75 mL) subcut QWEEK 4 weeks simethicone (Gas Relief (simethicone)) 80 mg PO BID-QID PRN 30 days venlafaxine ER 150 mg PO DAILY Tobacco use date assessed: 03/16/25 Fall risk assessment: No Falls in past year Last assessed Fall Risk: 03/16/25 Dental Screening Dental Screen Date: 03/16/25 Did you have a dental visit in the last 12 months?: Yes Did you have a dental problem in the last 6 months where you did not have access to dental care?: No Was dental information given to patient?: Patient has dentist HPI PE R/S from 03/02 HPI Details Patient is a 69 year-old male here today for a routine annual physical.? Patient has a past medical history significant for type 2 diabetes, GERD, anxiety and depression, polyarthritis, hyperlipidemia. .. GERD: reports having some worsening GERD symptoms. Continues on pantoprazole 40 mg daily. He reports audible gastric noises. Otherwise denies any vomiting, nausea or diarrhea. Continues to have postprandial abdominal discomfort and audible gastric noises. He is interested in further treatment and investigation. Will send for ultrasound of abdomen evaluate for gallbladder etiology. We did discuss perhaps doing a barium swallow to evaluate for an esophageal stricture or hiatal hernia .. DMII: reports Has been taking his blood sugars and report 100s to 130s.? Most recent A1c at 5.9 ?Stopped his follow up with endocrine .? . Has not been taking his short-acting insulin before eats and will switch to preprandial administration. .. Osteoarthritis: Has severe osteoarthritis in bilateral knees elbows. 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 He is now seeing orthopedics and getting gel injections in his knees in his considering a total knee arthroplasty. He is continue to use Celebrex and prednisone which have helped to reduce his arthritic pain significantly. .. Hyperlipidemia:? Continues on statin therapy and total cholesterol and LDL within excellent control. He does report having lower extremity muscle cramps and pain thus will reduce his dose of statin therapy and stop Zetia. Goal LDL will still be below 100 .. Depression:? Has been stable on current doses of mental medications.? Otherwise eyes any SI or HI. VAccine: UTD with COVID , TDap and PCV .. Colon cancer screening: DOne in 2018- normal repeat 10 years [facility] Medical History (Updated 03/16/25 @ 09:03 by Richie Norton PA-C) Tinea pedis Poor circulation of extremity Type 2 diabetes mellitus with diabetic polyneuropathy Hypertension High cholesterol Diabetes Surgical History Hx of endoscopy Hx of colonoscopy Hx of hand surgery Hx of vasectomy Family History Mother Multiple sclerosis Father No problems noted. Social History Housing: House Alcohol intake: former Patient Tobacco Use Status: Never used Tobacco Tobacco use type: Cigarette e-Cigarette/Vaping Use: Never Used Second Hand Smoke Exposure: No service: No Current occupational status: retired Cognitive needs: No Hearing needs: No Vision needs: Yes Questionnaire PHQ-9 Over the last 2 weeks, how often have you been bothered by any of the following problems? 1. Little interest or pleasure in doing things: not at all 2. Feeling down, depressed, or hopeless: not at all 3. Trouble falling or staying asleep, or sleeping too much: not at all 4. Feeling tired or having little energy: not at all 5. Poor appetite or overeating: not at all 6. Feeling bad about yourself - or that you are a failure or have let yourself or your family down: not at all 7. Trouble concentrating on things, such as reading the newspaper or watching television: not at all 8. Moving or speaking so slowly that other people could have noticed. Or the opposite - being so fidgety or restless that you have been moving around a lot more than usual: not at all 9. Thoughts that you would be better off or of hurting yourself in some way: not at all Total score: 0 Depression Screening Interpretation: Negative Depression Screening Done: Yes 34338 - PHQ-9 Billing: Yes Source: Developed by Drs. Pedro Akins, Alea Rodriguez, Brett Sanchez and colleagues, with an educational jaelyn from [employer]. Thrive Questionnaire Date Thrive assessed: 03/09/25 I am a: Patient What is your living situation today?: I have a steady place to live Within the past 12 months, did the food you bought not last and you didn't have the money to get more?: Never true Within the past 12 months, did you worry whether your food would run out before you got money to buy more?: Never true Do you have trouble paying for medicines?: No Do you have trouble getting transportation to medical appointments?: No Do you have trouble paying your heating and electricity bill?: Yes Do you have trouble taking care of your child, family member or friend?: No Do you have trouble with day-to-day activities such as bathing, preparing meals, shopping, managing finances, etc.?: No Are you currently unemployed and looking for a job?: No Are you interested in more education?: No Please select the resources that you would like help with: Utilities Currently or been in a relationship where the following occur: No concerns reported THRIVE Score: 1 AUDIT C Alcohol Use Questionnaire (AUDIT-C) 1. How often do you have a drink containing alcohol?: Never 3. How often do you have six or more drinks on one occasion?: Never Total Score: 0 DARCY-7 AMB Questionnaire DARCY-7 Date DARCY - 7 assessed: 08/29/24 Feeling nervous, anxious, or on edge: 0 = Not at all Not being able to stop or control worryin = Not at all Worrying too much about different things: 0 = Not at all Trouble relaxin = Not at all Being so restless that it is hard to sit still: 0 = Not at all Becoming easily annoyed or irritable: 0 = Not at all Feeling afraid as if something awful might happen: 0 = Not at all Total DARCY-7 score (0-4 normal; 5-9 mild; 10-14 moderate; 15-21 severe): 0 Source: Developed by Drs. Pedro Akins, Alea Rodriguez, Brett Sanchez and colleagues, with an educational jaelyn from [employer]. DARCY-7 Assessment Billing DARCY-7 Assessment Tool: DARCY-7 Assessment 65378 Review of Systems Const Denies body aches, Denies chills, Denies excessive sweating, Denies fatigue, Denies fever(s) and Denies headache(s) Eyes Denies blurry vision ENT Denies dysphagia, Denies vertigo, Denies dizziness, Denies headache(s), Denies hearing loss and Denies tinnitus Card Denies chest pain, Denies chest pain with activity, Denies syncope, Denies irregular heart rhythm and Denies dyspnea Resp Denies chest congestion, Denies cough, Denies hemoptysis, Denies dyspnea and Denies wheezing GI Denies abdominal pain, Denies melena, Denies hematochezia, Denies coffee ground emesis, Denies dysphagia, Denies diarrhea, Denies nausea and Denies vomiting Denies difficulty urinating, Denies dysuria, Denies urinary frequency, Denies urinary hesitancy and Denies urinary urgency Musc Denies arthralgias, Denies limited range of motion, Denies muscle cramps and Denies muscle weakness Skin/Breast Denies rash and Denies skin ulcer Neuro Denies Abnormal speech present, Denies confusion, Denies vertigo, Denies dizziness, Denies syncope, Denies headache(s), Denies memory loss and Denies seizure-like activity Psych Denies anxiety, Denies confusion, Denies depression, Denies memory loss, Denies panic attacks and Denies paranoia Endo Denies excessive sweating, Denies fatigue, Denies flushing, Denies polydipsia and Denies polyuria Aller/Immun Denies wheezing Physical exam (Primary Care) Vital Signs: Last Vital Signs Pulse 78 03/16/25 07:49 BP 128/70 03/16/25 07:49 Pulse Ox 96 03/16/25 07:49 Oxygen Delivery Method Room Air 03/16/25 07:49 BMI result Body Mass Index 32.5 BMI Assessment/Plan discussion: High BMI High, discussed plan: lifestyle, weight reduction, dietary and physical activity Tobacco/Smoking Status: Tobacco use Status Tobacco use date assessed 03/16/25 03/16/25 07:50 Patient Tobacco Use Status Never used Tobacco 03/16/25 07:50 Tobacco use type Cigarette 03/16/25 07:50 e-Cigarette/Vaping Use Never Used 03/16/25 07:50 PHQ-9: PHQ-9 Score PHQ-9: Total score 0 03/16/25 08:08 Depression Screening Interpretation: Negative Thrive Assessment: Date of Thrive Assessment Date Thrive assessed 03/09/25 03/16/25 07:50 Currently or been in a relationship where the following occur: No concerns reported Const Other: OBESe General: cooperative, comfortable, no acute distress, alert and awake; No confusion Orientation/consciousness: oriented to person, oriented to place, patient oriented x3 and No confusion HENMT Head: Yes normocephalic Ears: external ears normal and TM's normal bilaterally Face and sinus: No sinus tenderness Mouth: Normal oral and palatal mucosa present and tongue normal Teeth and gingiva: dentition normal and gingiva normal Throat: Yes posterior oropharynx normal, Yes tonsils normal and Yes uvula midline Eyes Conjunctivae: conjunctivae normal Sclerae: sclerae normal Pupils: Equal, round and reactive pupils present EOM: EOMs intact bilaterally Direct Ophthalmoscopy: No no photophobia Neck Neck: Yes no lymphadenopathy, No tender and Yes no JVD Thyroid: Thyroid normal Carotids: no bruits Chest Chest palpation & inspection: no tenderness Resp Effort & Inspection: normal respiratory effort, no audible wheezes, not labored and no stridor Auscultation: no crackles, no rales, no rhonchi and no wheezes Cardio Jugular venous distension: no JVD Rate: regular rate, not bradycardic and not tachycardic Rhythm: regular rhythm Bruits: no carotid bruits Peripheral pulses: Peripheral pulses 2+ throughout GI Inspection: Yes normal to inspection, No abdominal wall ecchymosis and No visible herniation Palpation (GI): Soft to palpation, nontender, no guarding, not rigid and No hepatosplenomegaly present Auscultation: normoactive bowel sounds General: Yes no CVA tenderness Back/Spine/Pelvis Back: no CVA tenderness and No back tenderness Cervical Spine: cervical ROM normal Thoracic/Lumbar Spine: thoracic and lumbar spine normal to inspection, straight leg raise negative bilaterally, No thoraco-lumbar ROM limited and No lumbar spinal tenderness Skin Lesions: no lesions Rashes: no rashes Wounds: no wounds Neuro General: oriented to person, oriented to place, patient oriented x3, CN's II-XI intact bilaterally and No confusion Cranial nerves: Yes Equal, round and reactive pupils present and Yes Normal accommodation reflex present Cognition (Neuro): normal cognition Speech: No Abnormal speech present Gait exam (Neuro): Normal gait present Motor exam (neuro): 5/5 motor strength present throughout Extrem Right upper extremity: full ROM; no cyanosis Left upper extremity: full ROM; no cyanosis Right lower extremity: no edema Left lower extremity: no edema Psych Appearance: grossly normal Mental Status: mental status grossly normal Affect: normal affect Attitude: cooperative Thought process: Normal thought process present Results AMB Hemoglobin A1c AMB Hemoglobin A1c 5.9 % Last Edit by Hilda Zamora CMA on 03/16/25 08:09 Results Reviewed Results Reviewed: Laboratory Last Values Hgb A1c (Clinic) 5.9 % (4.0-6.0) 03/16/25 07:50 Coding Level of Care Code Est Pt Prev Care >65y(82571) Diagnoses Annual physical exam Z00.00 Type 2 diabetes mellitus with diabetic polyneuropathy, with long-term current use of insulin E11.42; Z79.4 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 insulin use: with extermination supervisor use Bipolar disorder, current episode mixed, mild F31.61 Active/Remission status: currently active Current bipolar episode type: mixed Current episode severity: mild High cholesterol E78.00 Essential hypertension I10 Hypertension type: essential hypertension Epigastric pain R10.13 Class 1 obesity E66.811 Primary osteoarthritis of both knees M17.0 Osteoarthritis location: knee Osteoarthritis type: primary Laterality: bilateral Additional Codes PHQ-9 - 69676 - PHQ-9 Billing: Yes ([id number]) DARCY-7 Assessment Billing - DARCY-7 Assessment Tool: DARCY-7 Assessment 00782 ([id number]) Assessment & Plan Assessment & Plan (1) Annual physical exam: Code(s): Z00.00 - Encounter for general adult medical examination without abnormal findings Category: Medical Plan: As per HPI (2) Type 2 diabetes mellitus with diabetic polyneuropathy: Code(s): E11.42 - Type 2 diabetes mellitus with diabetic polyneuropathy Category: Medical Qualifiers: 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 insulin use: with group home use Qualified Code(s): E11.42 - Type 2 diabetes mellitus with diabetic polyneuropathy; Z79.4 - buttermaker helper (current) use of insulin Plan: Patient's type 2 diabetes well controlled with current insulin regime. Today's A1c of 5.9. Goal A1c is to be below 7.0 (3) Bipolar disorder: Code(s): F31.9 - Bipolar disorder, unspecified Category: Medical Qualifiers: Active/Remission status: currently active Current bipolar episode type: mixed Current episode severity: mild Qualified Code(s): F31.61 - Bipolar disorder, current episode mixed, mild Plan: Continues on Abilify with good effect on his mood. (4) High cholesterol: Code(s): E78.00 - Pure hypercholesterolemia, unspecified Category: Medical Plan: Patient's most recent lipid panel showing excellent control of his total cholesterol LDL. He will continue his current dose of statin therapy with goal LDL to remain below 100 (5) Hypertension: Code(s): I10 - Essential (primary) hypertension Category: Medical Qualifiers: Hypertension type: essential hypertension Qualified Code(s): I10 - Essential (primary) hypertension Plan: Patient's blood pressure acceptable today in office. Will continue current dose of antihypertensive medication with goal blood pressure to remain below 140/90 (6) Epigastric pain: Code(s): R10.13 - Epigastric pain Category: Medical Plan: The patient experiences persistent burping and discomfort after meals, consistent with GERD. Current treatment includes pantoprazole, with plans to add an evening antacid to improve symptoms. To discuss to an ultrasound evaluate for gallbladder etiology due to his postprandial epigastric discomfort. Also discussed perhaps doing a barium swallow to evaluate for achalasia or esophageal stricture versus hiatal hernia. Will hold off on barium swallow for now (7) Class 1 obesity: Code(s): E66.811 - Obesity, class 1 Category: Medical Plan: Patient does understand his BMI is over 30 will work on being physically active and adapting to better eating habits to reduce his weight (8) Osteoarthritis: Code(s): M19.90 - Unspecified osteoarthritis, unspecified site Category: Medical Qualifiers: Osteoarthritis location: knee Osteoarthritis type: primary Laterality: bilateral Qualified Code(s): M17.0 - Bilateral primary osteoarthritis of knee Plan: The patient has knee osteoarthritis and is reluctant to undergo knee replacement surgery due to concerns about scarring. He continues on Celebrex and prednisone which has significantly reduced his arthritic pain. Orders: Orders US abdomen complete Today R10.13 - Epigastric pain Complete Blood Count no Diff Today K21.9 - Gastro-esophageal reflux disease without esophagitis TSH reflex Free T4 Today R79.89 - Other specified abnormal findings of blood chemistry Comprehensive [place]. Panel Fast Today I10 - Essential (primary) hypertension Microalbumin, Random (w Creat) Today I10 - Essential (primary) hypertension AMB Hemoglobin A1c Today Z13.9 - Encounter for screening, unspecified Lipid Panel Today E78.00 - Pure hypercholesterolemia, unspecified Hemoglobin A1c Today E11.65 - Type 2 diabetes mellitus with hyperglycemia, Z79.4 - buttermaker helper (current) use of insulin Prostate Specific Antigen Scr Today E11.65 - Type 2 diabetes mellitus with hyperglycemia, Z12.5 - Encounter for screening for malignant neoplasm of prostate, Z79.4 - buttermaker helper (current) use of insulin Medications: New famotidine 20 mg PO BEDTIME 90 tabs 1RF 90 days R10.13 - Epigastric pain Refilled acetaminophen (Tylenol Extra Strength) 500 mg PO Q6H PRN 120 tabs 2RF fever or pain M19.90 - Unspecified osteoarthritis, unspecified site rosuvastatin 5 mg PO DAILY 90 tabs 2RF 90 days E78.00 - Pure hypercholesterolemia, unspecified semaglutide (Ozempic) 1 mg (0.75 mL) subcut QWEEK 3 mL 6RF 4 weeks E11.42 - Type 2 diabetes mellitus with diabetic polyneuropathy venlafaxine ER 150 mg PO DAILY 90 caps 2RF simethicone (Gas Relief (simethicone)) 80 mg PO BID-QID PRN 120 tabs 3RF abdominal distention 30 days K21.9 - Gastro-esophageal reflux disease without esophagitis aripiprazole 2 mg PO DAILY 90 tabs 2RF F32.9 - Major depressive disorder, single episode, unspecified benazepril 20 mg PO DAILY 90 tabs 2RF I10 - Essential (primary) hypertension budesonide-formoterol 160-4.5 mcg/actuation 2 puffs PO BID 10.2 grams 3RF 30 days J45.909 - Unspecified asthma, uncomplicated canagliflozin (Invokana) 300 mg PO DAILY 90 tabs 2RF E11.42 - Type 2 diabetes mellitus with diabetic polyneuropathy, Z79.4 - buttermaker helper (current) use of insulin celecoxib (Celebrex) 200 mg PO BID 180 caps 2RF 90 days M17.0 - Bilateral primary osteoarthritis of knee insulin aspart U-100 (Novolog FlexPen U-100 Insulin aspart) 6 units (0.06 mL) subcut TID 15 mL 3RF 30 days E11.65 - Type 2 diabetes mellitus with hyperglycemia, Z79.4 - retirement (current) use of insulin insulin glargine U-300 conc (Toujeo Max U-300 SoloStar) 50 units (0.1667 mL) subcut BID 54 mL 3RF E11.42 - Type 2 diabetes mellitus with diabetic polyneuropathy, Z79.4 - retirement (current) use of insulin pantoprazole 40 mg PO DAILY 90 tabs 2RF potassium chloride ER (Klor-Con) 10 mEq PO DAILY 30 tabs 3RF 30 days E87.6 - Hypokalemia pramipexole 1 mg PO BEDTIME 30 tabs 6RF 30 days R25.2 - Cramp and spasm prednisone 5 mg PO DAILY 30 tabs 3RF 30 days M17.0 - Bilateral primary osteoarthritis of knee
[2025-03-16 07:49] VITALS: BP 128/70; PULSE 78; O2SAT 96; BMI 32.5
== END 2025-03-16 08:47 | disposition home or self-care (01) ==
LOC: HO.HMCH 07:44
PROVIDERS: PCP Physician Assistant; Visit Provider Physician Assistant
DX: Z00.00 Encounter for general adult medical examination without abnormal findings (principal); E11.42 Type 2 diabetes mellitus with diabetic polyneuropathy; Z79.4 Long term (current) use of insulin; F31.61 Bipolar disorder, current episode mixed, mild; E66.811 Obesity, class 1; Z68.32 Body mass index [BMI] 32.0-32.9, adult; E78.00 Pure hypercholesterolemia, unspecified; I10 Essential (primary) hypertension; R10.13 Epigastric pain; M17.0 Bilateral primary osteoarthritis of knee

== ENCOUNTER → 2025-03-16 07:43 | Outpatient (BNVA) | payer MEDICARE, MEDICAID, SELFPAY | PROVIDERS: PCP Physician Assistant; Visit Provider Physician Assistant | DX: Z00.00 Encounter for general adult medical examination without abnormal findings (principal); E11.42 Type 2 diabetes mellitus with diabetic polyneuropathy; K21.9 Gastro-esophageal reflux disease without esophagitis; F41.9 Anxiety disorder, unspecified; E78.5 Hyperlipidemia, unspecified; M17.0 Bilateral primary osteoarthritis of knee; M19.022 Primary osteoarthritis, left elbow; M19.021 Primary osteoarthritis, right elbow; F31.61 Bipolar disorder, current episode mixed, mild; E78.00 Pure hypercholesterolemia, unspecified; I10 Essential (primary) hypertension; R10.13 Epigastric pain; E66.811 Obesity, class 1; Z79.4 Long term (current) use of insulin; Z68.32 Body mass index [BMI] 32.0-32.9, adult | CPT/HCPCS: 83036; 96127; 99397 ==

== ENCOUNTER 2025-03-27 09:26 | Outpatient (AMB) | payer MEDICARE, MEDICAID, SELFPAY ==
--- NOTE | 2025-03-27 09:28 | MHC.OFFVIS ---
Intake Visit Reasons: Inj-B/L knee Durolane inj-last 01/18/24 Intake Note: Clinton is a 69 year old male who presents today for bilateral knee Durolane injections Injection Hx: Bilateral Knee Cortisone Last done 12/22/24 Bilateral Knee Durolane last done 07/28/24 Allergies Penicillins Allergy (Verified 03/16/25 08:29) hives magnesium Adverse Reaction (Intermediate, Verified 03/16/25 08:29) hyperglycemia HPI HPI Inj-B/L knee Durolane inj-last 01/18/24: Details: Clinton is a 69 year old male who presents today for bilateral knee Durolane injections Injection Hx: Bilateral Knee Cortisone Last done 12/22/24 Bilateral Knee Durolane last done 07/28/24 PFS Medical History (Updated 03/16/25 @ 09:03 by Richie Norton PA-C) Tinea pedis Poor circulation of extremity Type 2 diabetes mellitus with diabetic polyneuropathy Hypertension High cholesterol Diabetes Surgical History Hx of endoscopy Hx of colonoscopy Hx of hand surgery Hx of vasectomy Family History Mother Multiple sclerosis Father No problems noted. Social History Housing: House Alcohol intake: former Patient Tobacco Use Status: Never used Tobacco Tobacco use type: Cigarette e-Cigarette/Vaping Use: Never Used Second Hand Smoke Exposure: No service: No Current occupational status: retired Cognitive needs: No Hearing needs: No Vision needs: Yes Physical Exam Extrem Other: Skin clean dry intact bilateral knees. He does have chronic low-grade prepatellar bursitis Office Procedures Joint Inj/Aspir; Non-Pain Clin Joint Injection/Drain Details: Injected Durolane. Site was prepped using aseptic technique. Patient tolerated the procedure well. Shoulders, Hips, Knees, Knee Large Joint Injection [id number]: Bilateral Knee Coding Procedure code (CPT) selection complete Assessment & Plan Assessment & Plan (1) Knee osteoarthritis: Code(s): M17.9 - Osteoarthritis of knee, unspecified Category: Medical Plan: I injected bilateral knees with Durolane. No complications. Coding Level of Care Code Est Pt Level 2 (87419) Diagnoses Knee osteoarthritis M17.9 CPT Codes Shoulders, Hips, Knees, - Knee Large Joint Injection : Bilateral Knee ([id number])
--- OUTSIDE RECORDS SUMMARY | 2025-03-27 10:40 | XMS_ITS | Clinical Summary ---
Author Organization [address] 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 ([facility] V24, [facility] V28); Pain in toe of right foot; Pain in toe of left foot; Diabetic mononeuropathy simplex ([facility] V24, [facility] V28); Type II diabetes mellitus with peripheral circulatory disorder ([facility] V24, [facility] V28) from Last 3 Months Surgical History Surgery Date Site/Laterality Comments VASECTOMY PROCEDURE: [place] VASECTOMY UNI/BI SPX W/POSTOP SEMEN EXAMS Medical [...] Upcoming Encounters Date Type Department Care Team ([facility] st Contact Info) Description 04/18/2025 9:15 AM EDT Office Visit Orthopedic Surgery - [place] 250 175 [facility] [address] [place] [address] Mamadou Henry, DPM [address] [address] Health Maintenance Due Date Last Done Comments Diabetes: Annual GFR (Glomerular Filtration Rate) 1954 Diabetes: Annual Foot Exam 1964 Diabetes: Annual Retina Eye Exam 1964 RSV Immunization Adult Patients (1 - Risk 60-74 years 1-dose series) 2014 Zoster Vaccines (2 of 3) 09/27/2015 08/02/2015 Pneumococcal Vaccine: 50+ Years (2 of 2 - PCV) 09/06/2021 09/06/2020 Depression Screening 07/20/2024 Abdominal Aortic Aneurysm (AAA) Screen 11/29/2024 Cholesterol Screening (Lipid Panel) 11/29/2024 Colorectal Cancer Screening: Colonoscopy 11/29/2024 Diabetes: Annual Urine Albumin-Creatinine Ratio (uACR) 11/29/2024 Diabetes: Blood Sugar Contro l Test (HGBA1C) 11/29/2024 Falls Risk Assessment 11/29/2024 Hepatitis C Screening 11/29/2024 Hypertension/CHF/CAD Annual BMP Blood Test 11/29/2024 Medicare Annual Wellness Visit 11/29/2024 Social Influencers of Health Screening 11/29/2024 COVID-19 Vaccine (4 - 2024-2 6 season) 2025 08/26/2021, 02/22/2021, 01/31/2021 Influenza Vaccine (#1) 2025 , 09/06/2020 DTaP,Tdap,and Td Vaccines (2 - Td [...] MEDICARE ADVANTAGE MEDICAID - [place] Care Teams Emergency Nurse Relationship Specialty Start Date End Date Richie Norton PA [address] [place] [phone] PCP - General Physician Manager [employer] 11/29/24
== END 2025-03-27 09:38 | disposition home or self-care (01) ==
LOC: HO.HOS 09:27
PROVIDERS: PCP Physician Assistant; Visit Provider Orthopaedic Surgery
DX: M17.0 Bilateral primary osteoarthritis of knee (principal)
CPT/HCPCS: 20610

== ENCOUNTER → 2025-03-27 09:26 | Outpatient (BNVA) | payer MEDICARE, MEDICAID, SELFPAY | PROVIDERS: PCP Physician Assistant; Visit Provider Orthopaedic Surgery | DX: M17.0 Bilateral primary osteoarthritis of knee (principal) | CPT/HCPCS: 20610; J7318 ==

== ENCOUNTER 2025-04-28 10:54 | Outpatient (REF) | payer MEDICARE, MEDICAID, SELFPAY ==
--- NOTE | ~2025-04-28 | XR_ITS ---
EXAMINATION: XR KNEE 4 OR MORE VIEWS RIGHT HISTORY: M17.11 - Unilateral primary osteoarthritis, right knee COMPARISON: Comparison is made with the prior examination dated 08/17/2023. FINDINGS: Four views of the right knee are submitted. Osseous mineralization is normal. There is no fracture or dislocation. There is moderate osteoarthritis of the medial and patellofemoral compartments, with joint space narrowing and osteophyte formation. There is a large suprapatellar joint effusion. XR/XR knee RT 4V IMPRESSION: Large joint effusion. Osteoarthritis as described. Electronically signed by: Pedro Jovel MD 04/28/2025 11:36 AM EDT
== END 2025-04-28 10:55 | disposition home or self-care (01) ==
LOC: HO.HMGCX 10:54
PROVIDERS: PCP Physician Assistant; Visit Provider Physician Assistant
DX: M17.11 Unilateral primary osteoarthritis, right knee (principal)
CPT/HCPCS: 73564

== ENCOUNTER → 2025-04-28 11:05 | Outpatient (BNV) | payer MEDICARE, MEDICAID, SELFPAY | PROVIDERS: PCP Physician Assistant; Visit Provider Radiology Diagnostic Radiology | DX: M17.11 Unilateral primary osteoarthritis, right knee (principal) | CPT/HCPCS: 73564 ==

== ENCOUNTER 2025-05-08 10:24 | Outpatient (REF) | payer MEDICARE, MEDICAID, SELFPAY ==
--- NOTE | ~2025-05-08 | US_ITS ---
CLINICAL HISTORY: R10.13 - Epigastric pain --- Additional Notes or Special Instructions: Postprandial epigastric pain, ultrasound evaluate for gallbladder etiology US abdomen limited with color Doppler Comparison: None Findings: Visualized pancreas is normal. Tail obscured by bowel gas. Liver is normal in size and diffusely echogenic. Right lobe length 16.9 cm. No focal hepatic masses. Common duct 2.2 mm diameter. Gallbladder is physiologically distended. Small layering gallstones. No gallbladder wall thickening. No pericholecystic fluid. No sonographic Hernandez sign. Right kidney measures, 12.0 cm in length. Normal cortical width and echotexture. No hydronephrosis calculus or mass. Impression: 1. Cholelithiasis without evidence of cholecystitis 2. Mild diffuse hepatic steatosis This document has been electronically signed by: Keith Sousa MD on 05/09/2025 12:33:46
== END 2025-05-08 10:25 | disposition home or self-care (01) ==
LOC: HO.HMGCX 10:24
PROVIDERS: PCP Physician Assistant; Visit Provider Physician Assistant
DX: R10.13 Epigastric pain (principal)
CPT/HCPCS: 76705

== ENCOUNTER → 2025-05-08 10:41 | Outpatient (BNV) | payer MEDICARE, MEDICAID, SELFPAY | PROVIDERS: PCP Physician Assistant; Visit Provider Radiology Diagnostic Radiology | DX: K80.20 Calculus of gallbladder without cholecystitis without obstruction (principal); K76.0 Fatty (change of) liver, not elsewhere classified | CPT/HCPCS: 76705 ==

== ENCOUNTER 2025-05-25 08:16 | Outpatient (AMB) | payer MEDICARE, MEDICAID, SELFPAY ==
--- NOTE | 2025-05-25 08:20 | A.OFFVIS_ITS ---
Vital Signs 05/25/25 08:21 Height 5 ft 11 in Weight 233 lb BMI 32.5 Intake Visit Reasons: OV - Bilateral Knee OA - Discuss treatment options Intake Note: Clinton is a 69 year old male who presents today for a follow up of his Bilateral Knee OA. Bilateral Durolane injections done on 01/18/24 the were not particularly helpful, and bilateral cortisone injections last done in December of 2024. He would like to discuss alternative treatment options. Patient reports that he is having pain mostly in the right knee at the medial proximal tibia - he has pain all the time and is particularly tender to palpitation. Allergies Penicillins Allergy (Verified 05/25/25 08:37) hives magnesium Adverse Reaction (Intermediate, Verified 05/25/25 08:37) hyperglycemia HPI HPI OV - Bilateral Knee OA - Discuss treatment options: Details: Clinton is a 69 year old male who presents today for a follow up of his Bilateral Knee OA. Bilateral Durolane injections done on 01/18/24 the were not particularly helpful, and bilateral cortisone injections last done in December of 2024. He would like to discuss alternative treatment options. Patient reports that he is having pain mostly in the right knee at the medial proximal tibia - he has pain all the time and is particularly tender to palpitation. I've seeing him for about 18 months and injected at least 6 times. He presents today feeling like he is worsening and his right knee is preventing him from enjoying daily life. He can't walk without limping and pain. He has severe varus defromity bilaterally and has for many years. [facility] Medical History (Updated 05/26/25 @ 07:08 by Chacorta Coelho MD) Tinea pedis Poor circulation of extremity Type 2 diabetes mellitus with diabetic polyneuropathy Hypertension High cholesterol Diabetes Surgical History Hx of endoscopy Hx of colonoscopy Hx of hand surgery Hx of vasectomy Family History Mother Multiple sclerosis Father No problems noted. Social History Housing: House Alcohol intake: former Patient Tobacco Use Status: Never used Tobacco Tobacco use type: Cigarette e-Cigarette/Vaping Use: Never Used Second Hand Smoke Exposure: No service: No Current occupational status: retired Cognitive needs: No Hearing needs: No Vision needs: Yes Physical Exam Exam Exam: Pleasant M NAD Varus knee bilaterally with prominent medial ganglion on the left. Right knee sharply tender over the medial plateau. Moderate effusion 10-125 fixed ~10 deg varus defromity bilaterally Vital Signs: BMI result Body Mass Index 32.5 Results Reviewed Results Reviewed: I personally reviewed relevant radiographs. Severe Varus right knee OA with lateral tibial translation Assessment & Plan Assessment & Plan (1) Osteoarthritis of right knee: Code(s): M17.11 - Unilateral primary osteoarthritis, right knee Category: Medical Plan: This is a 69 with severe OA of the rightknee. He is unable to walk even short distances without pain and a limp. I have injected his knees multiple times including viscosupplementation. He feels the quality of his life is diminished and cannot engage in daily activities without pain. I recommend right knee arthroplasty. I explained the surgery and the alternatives including injections, nerve blocks, activity modification and medication. I discussed the risks of surgery including, but not limited to, the risk of persistent pain, incomplete symptom resolution, infection, stiffness, aseptic loosening and the need for further surgery, damage to nerves and blood vessels that could require additional treatment, as well as potential medical complications such as blood clots, pulmonary embolism, organ failure and cardiac complications. He has a significant fixed varus deformity and I recommend a CT based custom knee given his tibial deformity. He expressed understanding and I will introduce him to our NN and we will proceed forward accordingly. I answered all his questions to the best of my abilities. 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, right leg Category: Medical Plan: CT ordered for pre operative planning (3) Type 2 diabetes mellitus with diabetic polyneuropathy: Code(s): E11.42 - Type 2 diabetes mellitus with diabetic polyneuropathy Category: Medical Qualifiers: Diabetes mellitus salvage determiner insulin use: with usp use Qualified Code(s): E11.42 - Type 2 diabetes mellitus with diabetic polyneuropathy; Z79.4 - emt intermediate (current) use of insulin Plan: Hbbgb A1C < 6 (4) PAD (peripheral artery disease): Code(s): I73.9 - Peripheral vascular disease, unspecified Category: Medical Plan: Saw Dr Knox in 2020 and while he was given a diagnosis of PAD his ASAD were wnl and no additional treatment was recommended Coding Level of Care Code Est Pt Level 4 (33852) Complex EM visit Add On G2211 Diagnoses Osteoarthritis of right knee M17.11 Varus deformity of right tibia M92.501 Type 2 diabetes mellitus with diabetic polyneuropathy, with long-term current use of insulin E11.42; Z79.4 Diabetes mellitus salvage determiner insulin use: with salvage determiner use PAD (peripheral artery disease) I73.9
[2025-05-25 08:21] VITALS: BMI 32.5
--- OUTSIDE RECORDS SUMMARY | 2025-05-25 08:36 | XMS_ITS | Clinical Summary ---
Author Organization 175 [facility] Address 175 [place] [address] Phone Care Team Providers Care Director Of Trauma Name Role Phone Richie Norton Primary Care Provider Surgical History Surgery Date Site/Laterality Comments VASECTOMY PROCEDURE: [place] VASECTOMY UNI/BI SPX W/POSTOP SEMEN EXAMS Medical [...] on file Obstetrics History Plan of Treatment Health Maintenance Due Date Last Done Comments Colorectal Cancer Screening: Colonoscopy 1954 RSV Immunization Adult Patients (1 - Risk 50-74 years 1-dose series) 2004 Zoster Vaccines (2 of 3) 09/27/2015 08/02/2015 Pneumococcal Vaccine: 50+ Years (2 of 2 - PCV) 09/06/2021 09/06/2020 Depression Screening 07/20/2024 Abdominal Aortic Aneurysm (AAA) Screen 11/29/2024 Cholesterol Screening (Lipid Panel) 11/29/2024 Falls Risk Assessment 11/29/2024 Hepatitis C [...] MEDICARE ADVANTAGE MEDICAID - [place] Care Teams Director Of Trauma Relationship Specialty Start Date End Date Richie Norton PA [address] [place] [address] PCP - General Physician Hvac Maintenance Technician 11/29/24
== END 2025-05-25 09:31 | disposition home or self-care (01) ==
LOC: HO.HOS 08:17
PROVIDERS: PCP Physician Assistant; Visit Provider Orthopaedic Surgery
DX: E11.42 Type 2 diabetes mellitus with diabetic polyneuropathy (principal); Z79.4 Long term (current) use of insulin; M17.11 Unilateral primary osteoarthritis, right knee; M21.151 Varus deformity, not elsewhere classified, right hip; I73.9 Peripheral vascular disease, unspecified
CPT/HCPCS: 99214; G2211

== ENCOUNTER → 2025-05-25 08:16 | Outpatient (BNVA) | payer MEDICARE, MEDICAID, SELFPAY | PROVIDERS: PCP Physician Assistant; Visit Provider Orthopaedic Surgery | DX: M17.11 Unilateral primary osteoarthritis, right knee (principal); M92.501 Unspecified juvenile osteochondrosis, right leg; E11.42 Type 2 diabetes mellitus with diabetic polyneuropathy; Z79.4 Long term (current) use of insulin; I73.9 Peripheral vascular disease, unspecified | CPT/HCPCS: 99212 ==

== ENCOUNTER 2025-06-05 08:14 | Outpatient (AMB) | payer MEDICARE, MEDICAID, SELFPAY ==
--- NOTE | 2025-06-05 08:39 | MHC.OFFVIS ---
Vital Signs 06/05/25 08:44 Height 5 ft 11 in Weight 241 lb BMI 33.6 BP 142/72 H Blood Pressure Location Rt brachial Position Sitting Pulse 88 Intake Visit Reasons: Calculus of gallbladder without cholecystitis Intake Note: Patient referred by pcp Richie Norton PA-C for assessment and treatment of Calculus of gallbladder without cholecystitis. Patient c/o: violent hiccups. Denies abdominal pain. Imaging: Abdomen US~ 05-08-2025 Behavior Management Specialist Required: No Accompanied by: spouse Rubian Allergies Penicillins Allergy (Verified 06/05/25 08:45) hives magnesium Adverse Reaction (Intermediate, Verified 06/05/25 08:45) hyperglycemia Medication List - Last Reconciled 06/05/25 by Tre Spain MD acetaminophen (Tylenol Extra Strength) 500 mg PO Q6H PRN aripiprazole 2 mg PO DAILY benazepril 20 mg PO DAILY blood sugar diagnostic (spotdock Verio test strips) To test blood glucose 4 times a day blood-glucose meter ([employer]ound[employer] Verio Meter) To test blood glucose 4 times a day blood-glucose sensor ([employer] G6 Sensor device) As directed blood-glucose transmitter ([employer] G6 Transmitter device) As directed blood-glucose,cost consultant,cont (Dexcom G6 Wine Manager) As directed budesonide-formoterol 160-4.5 mcg/actuation 2 puffs PO BID 30 days canagliflozin (Invokana) 300 mg PO DAILY celecoxib (Celebrex) 200 mg PO BID 90 days ezetimibe 10 mg PO DAILY Held on 10/27/22. Instructions: Doctor's Order famotidine 20 mg PO BEDTIME 90 days fluticasone propionate 50 mcg/actuation (Flonase Allergy Relief) 1 spray intranasal Q12H 30 days insulin aspart U-100 (Novolog FlexPen U-100 Insulin aspart) 6 units (0.06 mL) subcut TID 30 days insulin glargine U-300 conc (Toujeo Max U-300 SoloStar) 50 units (0.1667 mL) subcut BID lancets ([employer] Delica Plus Lancet) To test blood glucose 4 times a day pantoprazole 40 mg PO DAILY pen needle, diabetic 4 times a day potassium chloride ER (Klor-Con) 10 mEq PO DAILY 30 days pramipexole 1 mg PO BEDTIME 30 days prednisone 5 mg PO DAILY 30 days rosuvastatin 5 mg PO DAILY 90 days semaglutide (Ozempic) 1 mg (0.75 mL) subcut QWEEK 4 weeks simethicone (Gas Relief (simethicone)) 80 mg PO BID-QID PRN 30 days venlafaxine ER 150 mg PO DAILY HPI Comments Details: The patient is a 69-year-old male presenting with severe hiccups and associated pain. The hiccups occur every time he eats and have been ongoing for two to three years. The patient reports that the hiccups are severe and cause significant discomfort, but they subside if he stops eating and inhales deeply a few times. The patient has been informed of the presence of gallstones, which were discovered incidentally during an ultrasound examination. He has not experienced typical symptoms of gallbladder disease, but the gallstones might be contributing to his symptoms. The patient also reports knee pain, which is scheduled for surgical intervention in August. He is currently unable to undergo any other surgical procedures until after his knee surgery. [facility] Medical History (Updated 06/05/25 @ 09:25 by Tre Spain MD) Cataract Tinea pedis Poor circulation of extremity Type 2 diabetes mellitus with diabetic polyneuropathy Hypertension High cholesterol Diabetes Surgical History Hx of endoscopy Hx of colonoscopy Hx of hand surgery Hx of vasectomy Family History Mother Multiple sclerosis Father No problems noted. Social History Housing: House Alcohol intake: former Patient Tobacco Use Status: Never used Tobacco Tobacco use type: Cigarette e-Cigarette/Vaping Use: Never Used Second Hand Smoke Exposure: No service: No Current occupational status: retired Cognitive needs: No Hearing needs: No Vision needs: Yes Review of Systems Narrative - Gastrointestinal: Reports severe hiccups associated with eating for two to three years. - Musculoskeletal: Reports knee pain, scheduled for surgery in August. Const All systems reviewed & are unremarkable except as noted in HPI and below Eyes Reports as per HPI ENT Details: Anicteric Reports no additional complaints Resp Reports as per HPI Musc Reports no additional complaints Skin/Breast Reports system reviewed and no additional complaints, except as documented Neuro Reports no additional complaints Psych Reports no additional complaints Physical Exam Vital Signs: Last Vital Signs Pulse 88 06/05/25 08:44 BP 142/72 H 06/05/25 08:44 BMI result Body Mass Index 33.6 Const General: cooperative, healthy appearing, comfortable and no acute distress HEENT Head: Yes normal to inspection Ears: hearing grossly normal bilaterally Eyes Other: Anicteric General: appearance normal, both eyes and all related structures Resp Effort & Inspection: normal respiratory effort, able to speak in complete sentences and abnormal respiratory pattern Cardio Rate: regular rate Rhythm: regular rhythm GI Other: Abdomen large and somewhat tense when upright. No scars, masses or hernias appreciated. No tenderness to palpation. No evidence of hepato- splenomegaly Assessment & Plan Assessment & Plan (1) Epigastric pain: Code(s): R10.13 - Epigastric pain Category: Medical (2) Gallstones: Code(s): K80.20 - Calculus of gallbladder without cholecystitis without obstruction Category: Medical Plan The patient has been diagnosed with gallstones, which may be contributing to his symptoms of pain and hiccups. Options discussed include laparoscopic cholecystectomy or medical management with Ursodiol for those who wish to avoid surgery. A CT scan of the abdomen is planned to further evaluate the condition. The patient experiences severe hiccups associated with eating, which have been ongoing for two to three years. The hiccups subside with cessation of eating and deep inhalation. A low-fat, bland diet is recommended to help manage symptoms. The patient reports knee pain, which is scheduled for surgical intervention in August. He is unable to undergo any other surgical procedures until after his knee surgery. Orders: Orders CT abdomen pelvis w IV con Today R10.13 - Epigastric pain Patient Instructions: - Follow a low-fat, bland diet to help manage symptoms. - Monitor and note any specific triggers for hiccups. - Await scheduling for a CT scan of the abdomen and pelvis. - Plan for knee surgery in August and avoid other surgeries until then. Coding Level of Care Code New Pt Level 3 (23566) Diagnoses Epigastric pain R10.13 Gallstones K80.20 Time Spent (min) 30 Comment Clinical care and record review
[2025-06-05 08:44] VITALS: BP 142/72; PULSE 88; BMI 33.6
== END 2025-06-05 09:03 | disposition home or self-care (01) ==
LOC: HO.HGS 08:15
PROVIDERS: PCP Physician Assistant; Visit Provider Surgery
DX: R10.13 Epigastric pain (principal); K80.20 Calculus of gallbladder without cholecystitis without obstruction
CPT/HCPCS: 99203

== ENCOUNTER → 2025-06-05 08:14 | Outpatient (BNVA) | payer MEDICARE, MEDICAID, SELFPAY | PROVIDERS: PCP Physician Assistant; Visit Provider Surgery | DX: K80.20 Calculus of gallbladder without cholecystitis without obstruction (principal); R10.13 Epigastric pain; R06.6 Hiccough; M25.561 Pain in right knee | CPT/HCPCS: 99202 ==

== ENCOUNTER 2025-06-26 | Outpatient (REF) | payer MEDICARE, MEDICAID, SELFPAY ==
--- OUTSIDE RECORDS SUMMARY | 2025-08-10 11:39 | XMS_ITS | Clinical Summary ---
Author Organization [address] [facility] Address [address] [place] [address] Phone Care Team Providers Care Studio Data Analyst Name Role Phone Richie Norton Primary Care Provider Surgical History Surgery Date Site/Laterality Comments VASECTOMY PROCEDURE: [place] VASECTOMY UNI/BI SPX W/POSTOP SEMEN EXAMS Medical [...] (2 of 2 - PCV) 09/06/2021 09/06/2020 Abdominal Aortic Aneurysm (AAA) Screen 11/29/2024 Cholesterol Screening (Lipid Panel) 11/29/2024 Falls Risk Assessment 11/29/2024 Hepatitis C Screening 11/29/2024 Hypertension/CHF/CAD Annual BMP Blood Test 11/29/2024 Medicare Annual Wellness Visit 11/29/2024 Social Influencers of Health Screening 11/29/2024 COVID-19 Vaccine (4 - 2024-2 6 season) 2025 08/26/2021, 02/22/2021, 01/31/2021 Influenza Vaccine (#1) 2025 3, 09/06/2020 Depression Screening 07/20/2025 DTaP,Tdap,and Td Vaccines (2 - Td or [...] MEDICARE ADVANTAGE [place]ICAID - [place] Care Teams Studio Data Analyst Relationship Specialty Start Date End Date Richie Norton PA PCP - General Physician Audio Visual Aids Director 11/29/24
== END 2025-06-26 00:01 ==
LOC: CF
PROVIDERS: Visit Provider Orthopaedic Surgery
DX: M17.12 Unilateral primary osteoarthritis, left knee (principal); E11.42 Type 2 diabetes mellitus with diabetic polyneuropathy; Z79.4 Long term (current) use of insulin
CPT/HCPCS: 20610; 99212; J0665; J1100; J2003

== ENCOUNTER 2025-06-26 09:36 | Outpatient (AMB) | payer MEDICARE, MEDICAID, SELFPAY ==
[2025-06-26 09:46] VITALS: BMI 33.6
--- NOTE | 2025-06-26 09:46 | MHC.OFFVIS ---
Vital Signs 06/26/25 09:46 Height 5 ft 11 in Weight 241 lb BMI 33.6 Intake Visit Reasons: OV-s/p Lt knee Durolane 03/27/25 Intake Note: Clinton is a 70 year old male who presents today for a follow up of his Left Knee OA s/p Durolane injection administered bilaterally 03/27/25. although he can have a cortisone injection.Patient reports that this injection was helpful for about 3 months, but has started to have pain again. He is interested in a cortisone injection today on the left knee Allergies Penicillins Allergy (Verified 06/26/25 09:47) hives magnesium Adverse Reaction (Intermediate, Verified 06/26/25 09:47) hyperglycemia HPI HPI OV-s/p Lt knee Durolane 03/27/25: Details: Clinton had a Kyleigh injection 3 months ago said it helped but not tremendously so. Has a right knee replacement coming up in the new year. Would like to get his left knee injected again today. [facility] Medical History (Updated 06/05/25 @ 09:25 by Tre Spain MD) Cataract Tinea pedis Poor circulation of extremity Type 2 diabetes mellitus with diabetic polyneuropathy Hypertension High cholesterol Diabetes Surgical History Hx of endoscopy Hx of colonoscopy Hx of hand surgery Hx of vasectomy Family History Mother Multiple sclerosis Father No problems noted. Social History Housing: House Alcohol intake: former Patient Tobacco Use Status: Never used Tobacco Tobacco use type: Cigarette e-Cigarette/Vaping Use: Never Used Second Hand Smoke Exposure: No service: No Current occupational status: retired Cognitive needs: No Hearing needs: No Vision needs: Yes Physical Exam Exam Exam: Pleasant M NAD Varus knee bilaterally with prominent medial ganglion on the left. Right knee sharply tender over the medial plateau. Moderate effusion 10-125 fixed ~10 deg varus deformity bilaterally Vital Signs: BMI result Body Mass Index 33.6 Office Procedures Joint Inj/Aspir; Non-Pain Clin Joint Injection/Drain Details: Injected 1 mL of Decadron and 3 mL 1% lidocaine and 3 mL of 0.25% Marcaine. Site was prepped using aseptic technique. Patient tolerated the procedure well. Shoulders, Hips, Knees, Knee Large Joint Injection [id number]: Left Knee Coding Procedure code (CPT) selection complete Assessment & Plan Assessment & Plan (1) Knee osteoarthritis: Code(s): M17.9 - Osteoarthritis of knee, unspecified Category: Medical Plan: I injected his left knee today. (2) Type 2 diabetes mellitus with diabetic polyneuropathy: Code(s): E11.42 - Type 2 diabetes mellitus with diabetic polyneuropathy Category: Medical Qualifiers: Diabetes mellitus joint terminal attack controller insulin use: with joint terminal attack controller use Qualified Code(s): E11.42 - Type 2 diabetes mellitus with diabetic polyneuropathy; Z79.4 - ocean transportation intermediary (current) use of insulin Plan: I warned him of the hyperglycemic effects of steroids. Coding Level of Care Code Est Pt Level 4 (40151) Diagnoses Knee osteoarthritis M17.9 Type 2 diabetes mellitus with diabetic polyneuropathy, with long-term current use of insulin E11.42; Z79.4 Diabetes mellitus half-way insulin use: with joint terminal attack controller use CPT Codes Shoulders, Hips, Knees, - Knee Large Joint Injection 21937: Left Knee ([id number])
== END 2025-06-26 10:11 | disposition home or self-care (01) ==
LOC: HO.HOS 09:37
PROVIDERS: PCP Physician Assistant; Visit Provider Orthopaedic Surgery
DX: M17.0 Bilateral primary osteoarthritis of knee (principal); E11.42 Type 2 diabetes mellitus with diabetic polyneuropathy; Z79.4 Long term (current) use of insulin
CPT/HCPCS: 20610; 99214

== ENCOUNTER 2025-07-05 09:25 | Outpatient (REF) | payer MEDICARE, MEDICAID, SELFPAY ==
--- NOTE | ~2025-07-05 | CT_ITS ---
EXAMINATION: CT KNEE WITHOUT CONTRAST, RIGHT CLINICAL INFORMATION: Unspecified juvenile osteochondrosis TECHNIQUE: This CT examination was performed using dose optimization techniques as appropriate, variously including the following: *Automated exposure control *Adjustment of mA and/or kV according to patient size (this includes techniques or standardized protocols for targeted exams where dose is matched to indication/reason for exam; i.e. extremities or head) *Use of iterative reconstruction technique DLP: 492 mGy/cm. FINDINGS/ CT/CT knee RT wo IV con IMPRESSION: Imaging of the right knee was performed as per biomed protocol for Dr. Chacorta Coelho. No interpretation was needed. Electronically signed by: Nilo Campos MD 07/05/2025 09:56 AM [facility]
--- OUTSIDE RECORDS SUMMARY | 2025-07-05 10:43 | XMS_ITS | Clinical Summary ---
Author Organization 175 [facility] Address [address] [place] [address] Phone Care Team Providers Care Quartz Cutter Name Role Phone Richie Norton Primary Care Provider Surgical History Surgery Date Site/Laterality Comments VASECTOMY PROCEDURE: IN VASECTOMY UNI/BI SPX W/POSTOP SEMEN EXAMS Medical [...] on file Sexual Orientation Not on file Plan of Treatment Health Maintenance Due Date [...] MEDICARE ADVANTAGE MEDICAID - [place] Care Teams Quartz Cutter Relationship Specialty Start Date End Date Richie Norton PA [address] [place] [address] PCP - General Physician Pattern And Chain Maker 11/29/24
== END 2025-07-05 09:26 | disposition home or self-care (01) ==
LOC: HO.CT 09:25
PROVIDERS: PCP Physician Assistant; Visit Provider Orthopaedic Surgery
DX: M92.501 Unspecified juvenile osteochondrosis, right leg (principal)
CPT/HCPCS: 73700

== ENCOUNTER → 2025-07-05 09:31 | Outpatient (BNV) | payer MEDICARE, MEDICAID, SELFPAY | PROVIDERS: PCP Physician Assistant; Visit Provider Radiology Diagnostic Ultrasound | DX: M92.501 Unspecified juvenile osteochondrosis, right leg (principal) | CPT/HCPCS: 73700 ==

== ENCOUNTER 2025-07-11 11:23 | Outpatient (AMB) | payer MEDICARE, MEDICAID, SELFPAY ==
--- NOTE | 2025-07-11 11:28 | A.OFFPC_ITS ---
Vital Signs 07/11/25 11:29 Height 5 ft 11 in Weight 236 lb BMI 32.9 BP 118/78 Blood Pressure Location Lt brachial Position Sitting Respiration 20 Pulse 87 Pulse Source Pulse Oximeter Temp 97.6 F Temp Source Temporal Artery Scan Pulse Oximetry (%) 97 Oxygen Delivery Method Room Air Intake Visit Reasons: 09/05/25 R TKA surgery with Dr. Coelho Director Report Required: No Accompanied by: Self / Same As Patient Allergies Penicillins Allergy (Verified 07/11/25 11:28) hives magnesium Adverse Reaction (Intermediate, Verified 07/11/25 11:28) hyperglycemia Medication List - Last Reconciled 07/11/25 by Lara Austin MD acetaminophen (Tylenol Extra Strength) 500 mg PO Q6H PRN aripiprazole 2 mg PO DAILY benazepril 20 mg PO DAILY blood sugar diagnostic ([employer] Verio test strips) To test blood glucose 4 times a day blood-glucose meter ([employer] Verio Meter) To test blood glucose 4 times a day blood-glucose sensor ([employer] G6 Sensor device) As directed blood-glucose transmitter ([employer] G6 Transmitter device) As directed blood-glucose,felter tennis balls,cont ([employer] G6 Osteologist) As directed budesonide-formoterol 160-4.5 mcg/actuation 2 puffs PO BID 30 days canagliflozin (Invokana) 300 mg PO DAILY celecoxib (Celebrex) 200 mg PO BID 90 days ezetimibe 10 mg PO DAILY Held on 10/27/22. Instructions: Doctor's Order famotidine 20 mg PO BEDTIME 90 days fluticasone propionate 50 mcg/actuation (Flonase Allergy Relief) 1 spray intranasal Q12H 30 days insulin aspart U-100 (Novolog FlexPen U-100 Insulin aspart) 6 units (0.06 mL) subcut TID 30 days insulin glargine U-300 conc (Toujeo Max U-300 SoloStar) 50 units (0.1667 mL) subcut BID lancets ([employer] Delica Plus Lancet) To test blood glucose 4 times a day pantoprazole 40 mg PO DAILY pen needle, diabetic 4 times a day potassium chloride ER (Klor-Con) 10 mEq PO DAILY 30 days pramipexole 1 mg PO BEDTIME 30 days prednisone 5 mg PO DAILY 30 days rosuvastatin 5 mg PO DAILY 90 days semaglutide (Ozempic) 1 mg (0.75 mL) subcut QWEEK 4 weeks simethicone (Gas Relief (simethicone)) 80 mg PO BID-QID PRN 30 days venlafaxine ER 150 mg PO DAILY Tobacco use date assessed: 03/16/25 Fall risk assessment: No Falls in past year Last assessed Fall Risk: 07/11/25 Dental Screening Dental Screen Date: 03/16/25 HPI HPI Comments History of Present Illness Details The patient is a 70 year old male with PMH of DM, HTN, bipolar, epigastric pain, calss 1 obsesity, OA, presenting for a preoperative evaluation for a right total knee arthroplasty scheduled for September [address] Coelho. He has a history of osteoarthritis in both knees, which has become severe in the right knee, causing persistent pain despite receiving cortisone injections. Imaging studies, including a knee X-ray on April 28 have confirmed osteoarthritis with a large joint effusion. The patient's does not have known thyroid issues. However, she was found to have low TSH and low T4 on labs from March 14. His other chronic conditions include hypertension, managed with lisinopril, and diabetes, for which he takes insulin glargine 50 units, short-acting insulin 6 units with meals, Canagliflozin and Ozempic. He also reports having acid reflux managed with omeprazole. His medication list also includes Tylenol for pain, prednisone for arthritis, rosuvastatin, and several others. He reports experiencing fatigue, particularly in the afternoon around 2-3 PM after eating. 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 Social History Housing: House Alcohol intake: former Patient Tobacco Use Status: Never used Tobacco Tobacco use type: Cigarette e-Cigarette/Vaping Use: Never Used Second Hand Smoke Exposure: No service: No Current occupational status: retired Cognitive needs: No Hearing needs: No Vision needs: Yes Questionnaire Thrive Questionnaire Date Thrive assessed: 03/09/25 I am a: Patient What is your living situation today?: I have a steady place to live Within the past 12 months, did the food you bought not last and you didn't have the money to get more?: Never true Within the past 12 months, did you worry whether your food would run out before you got money to buy more?: Never true Do you have trouble paying for medicines?: No Do you have trouble getting transportation to medical appointments?: No Do you have trouble paying your heating and electricity bill?: Yes Do you have trouble taking care of your child, family member or friend?: No Do you have trouble with day-to-day activities such as bathing, preparing meals, shopping, managing finances, etc.?: No Are you currently unemployed and looking for a job?: No Are you interested in more education?: No Currently or been in a relationship where the following occur: No concerns reported THRIVE Score: 1 DARCY-7 AMB Questionnaire DARCY-7 Date DARCY - 7 assessed: 08/29/24 Source: Developed by Drs. Pedro Akins, Alea Rodriguez, Brett Sanchez and colleagues, with an educational jaelyn from [employer]. Review of Systems Const Details: As per HPI. Physical exam (Primary Care) Vital Signs: Last Vital Signs Temp 97.6 F 07/11/25 11:29 Pulse 87 07/11/25 11:29 Resp 20 07/11/25 11:29 BP 118/78 07/11/25 11:29 Pulse Ox 97 07/11/25 11:29 Oxygen Delivery Method Room Air 07/11/25 11:29 BMI result Body Mass Index 32.9 Tobacco/Smoking Status: Tobacco use Status Tobacco use date assessed 03/16/25 07/11/25 11:36 Patient Tobacco Use Status Never used Tobacco 07/11/25 11:36 Tobacco use type Cigarette 07/11/25 11:36 e-Cigarette/Vaping Use Never Used 07/11/25 11:36 Thrive Assessment: Date of Thrive Assessment Date Thrive assessed 03/09/25 07/11/25 11:36 Currently or been in a relationship where the following occur: No concerns reported Const Other: Pertinent findings are in BOLD GENERAL APPEARANCE NAD, activity normal for age, well developed/ well nourished, no cyanosis, pallor, or diaphoresis. EYES lids/conjunctiva normal. EARS/NOSE/THROAT Mucous membranes moist, nares normal, lips/teeth normal uvula midline without oral pharyngeal erythema, exudate or swelling TMs normal bilaterally. No lymphangitis/lymphedema. HEAD/NECK normocephalic atraumatic, no facial trauma, neck is supple. RESPIRATORY respiratory effort normal, speaks in full sentences, no tripod position, no accessory muscle use. Lungs clear to auscultation without rhonchi, wheezes, rales CARDIAC Regular rate and rhythm, no edema. ABDOMINAL Soft, ND/NT. No evidence of fluid wave. No pulsatile masses on exam, rebound tenderness, Hernandez sign or pain over Mcburney's point. MUSCLES/EXTREMITIES No abnormal range of motion, no swelling. Knee brace to the right knee. SKIN Warm, pink and dry. No rashes, dermatoses, petechiae or lesions. NEUROLOGICAL Speech is clear and appropriate. Normal level of consciousness. Gait and coordination are normal. 5/5 strength in all extremities. PSYCH Normal mood and affect. Judgement/competence is appropriate Coding Level of Care Code Est Pt Level 4 (75002) Diagnoses Hypothyroidism E03.9 Pre-op evaluation Z01.818 Primary osteoarthritis of both knees M17.0 Osteoarthritis location: knee Osteoarthritis type: primary Laterality: bilateral Gastroesophageal reflux disease without esophagitis K21.9 Esophagitis presence: without esophagitis Time Spent (min) 30 Assessment & Plan Assessment & Plan (1) Hypothyroidism: Code(s): E03.9 - Hypothyroidism, unspecified Category: Medical Plan: - A prior lab result from February showed a low TSH, but this has not been followed up. - To avoid surgical delays, a repeat, thyroid panel was ordered for today to assess current function. - Will follow up with the patient by phone to discuss results and determine if medication is needed. 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 We will assess after labs get drawn. (2) Pre-op evaluation: Code(s): Z01.818 - Encounter for other preprocedural examination Category: Medical Plan: - The patient presents for preoperative clearance for a right total knee arthroplasty scheduled for September 05. - The current visit is too soon for the formal preoperative workup, which is typically performed within 40 days of surgery. - A follow-up visit will be scheduled for August 03 for the formal preoperative evaluation. - Preoperative labs, including a CBC and CMP, and an EKG will be ordered to be completed in July. - For Medications management we will advise holding Ozempic one week prior to the surgery. Reduce long acting insulin to 35%. Hold Canagliflozin 3 days prior to the surgery. Increase Prednisone to 10 mg 2 days prior to the surgery. We will continue the other medications at the same dose. (3) Osteoarthritis: Code(s): M19.90 - Unspecified osteoarthritis, unspecified site Category: Medical Qualifiers: Osteoarthritis location: knee Osteoarthritis type: primary Laterality: bilateral Qualified Code(s): M17.0 - Bilateral primary osteoarthritis of knee Plan: - The patient has severe right knee osteoarthritis refractory to cortisone injections, warranting a total knee arthroplasty. - He will proceed with the surgical plan and continue Tylenol for pain as needed. (4) GERD (gastroesophageal reflux disease): Code(s): K21.9 - Gastro-esophageal reflux disease without esophagitis Category: Medical Qualifiers: Esophagitis presence: without esophagitis Qualified Code(s): K21.9 - Gastro-esophageal reflux disease without esophagitis Plan: - The patient takes omeprazole for acid reflux and other GI problems. - A one-week dietary trial of eliminating dairy and gluten was recommended to see if it alleviates symptoms. Plan I informed the patient that today's visit is too early to complete the official preoperative clearance for his knee surgery scheduled in August, as the required tests would . We agreed to schedule his formal preoperative appointment for August 03, at which time he will also complete his preoperative labs (CBC, CMP) and an EKG. I explained the importance of evaluating his thyroid function now, due to a previously low TSH, and low T4 to prevent any potential delays with his surgery. Therefore, I ordered a fasting thyroid blood test for him to complete today. In discussing his GI symptoms, I recommended he try eliminating dairy and gluten from his diet for one week to see if he notices any improvement. Orders: Orders TSH reflex Free T4 Today E03.9 - Hypothyroidism, unspecified Complete Blood Count no Diff 3 Weeks Z01.818 - Encounter for other preprocedural examination Comprehensive Met. Panel 3 Weeks Z.818 - Encounter for other preprocedural examination ECG 12 lead EKG Today Z01.818 - Encounter for other preprocedural examination
[2025-07-11 11:29] VITALS: BP 118/78; PULSE 87; RESP 20; TEMP 36.4; O2SAT 97; BMI 32.9
--- OUTSIDE RECORDS SUMMARY | 2025-07-11 12:49 | XMS_ITS | Clinical Summary ---
Author Organization [address] [facility] Address [address] [place] [address] Phone Care Team Providers Care Jig Mill Operator Name Role Phone Richie Norton Primary Care Provider Surgical History Surgery Date Site/Laterality Comments VASECTOMY PROCEDURE: [place] VASECTOMY UNI/BI SPX W/POSTOP SEMEN EXAMS Medical [...] MEDICARE ADVANTAGE MEDICAID - [place] Care Teams Jig Mill Operator Relationship Specialty Start Date End Date Richie Norton PA [address] [place] [address] PCP - General Physician Senior Technical Business Analyst 11/29/24
== END 2025-07-11 12:01 | disposition home or self-care (01) ==
LOC: HO.HMCH 11:23
PROVIDERS: PCP Physician Assistant; Visit Provider Internal Medicine
DX: E03.9 Hypothyroidism, unspecified (principal); Z01.818 Encounter for other preprocedural examination; M17.0 Bilateral primary osteoarthritis of knee; K21.9 Gastro-esophageal reflux disease without esophagitis

== ENCOUNTER → 2025-07-11 11:23 | Outpatient (BNVA) | payer MEDICARE, MEDICAID, SELFPAY | PROVIDERS: PCP Physician Assistant; Visit Provider Internal Medicine | DX: Z01.818 Encounter for other preprocedural examination (principal); E03.9 Hypothyroidism, unspecified; M17.0 Bilateral primary osteoarthritis of knee; K21.9 Gastro-esophageal reflux disease without esophagitis | CPT/HCPCS: 99212 ==